=== PATIENT | male | born 1945 | race Caucasian/White ===

== ENCOUNTER 2024-02-20 10:08 | Outpatient (REF) | payer MEDICAID, MEDICARE, SELFPAY ==
[2024-02-20 10:48] LABS: Basophils Absolute Auto 0.1 10^3/uL (0.0-0.1); Basophils Percent Auto 0.7 % (0.2-2.0); Eosinophils Absolute Auto 0.5 10^3/uL (0.0-0.7); Eosinophils Percent Auto 4.5 % (0.9-7.0); Hematocrit 39.3 % (42.0-54.0); Hemoglobin 11.7 g/dL (14.0-18.0); Immature Granulocytes Abs Auto 0.17 10^3/uL (0.00-0.03); Immature Granulocytes Pct Auto 1.6 % (0.0-0.5); Lymphocytes Absolute Auto 1.2 10^3/uL (1.2-3.8); Lymphocytes Percent Auto 11.6 % (20.5-60.0); Mean Corpuscular HGB Conc 29.8 g/dL (29.9-35.2); Mean Corpuscular Hemoglobin 29.4 pg (25.9-34.0); Mean Corpuscular Volume 98.7 fL (80.0-94.0); Mean Platelet Volume 10.7 fL (9.5-13.5); Monocytes Absolute Auto 0.8 10^3/uL (0.3-0.8); Monocytes Percent Auto 7.8 % (1.7-12.0); Neutrophils Absolute Auto 7.6 10^3/uL (1.4-6.5); Neutrophils Percent Auto 73.8 % (43.0-75.0); Platelet Count 242 10^3/uL (150-450); Red Blood Count 3.98 10^6/uL (4.70-6.10); Red Cell Distribution Width 16.9 % (11.0-15.0); White Blood Count 10.4 10^3/uL (4.0-11.0)
[2024-02-20 11:04] LABS: Anion Gap 13.7; BUN Creatinine Ratio 28.1; Calcium 9.2 mg/dL (8.5-10.1); Carbon Dioxide 26.3 mmol/L (21.0-32.0); Chloride 107 mmol/L (98-107); Estimated GFR (African America >60 (>=60); Estimated GFR (Non-African Ame >60 (>=60); Glucose 87 mg/dL (74-106); Magnesium 1.9 mg/dL (1.8-2.4); Sodium 143 mmol/L (136-145)
== END 2024-02-20 10:09 | disposition home or self-care (01) ==
LOC: LAB 10:08
PROVIDERS: PCP Family Medicine; Visit Provider Nurse Practitioner Adult Health
DX: E61.2 Magnesium deficiency (principal); D64.9 Anemia, unspecified; J44.9 Chronic obstructive pulmonary disease, unspecified
CPT/HCPCS: 36415; 80048; 83735; 85025

== ENCOUNTER 2024-06-26 15:30 | Outpatient (REF) | payer MEDICARE, MEDICAID, SELFPAY ==
[2024-06-26 15:39] LABS: Basophils Absolute Auto 0.1 10^3/uL (0.0-0.1); Basophils Percent Auto 0.5 % (0.2-2.0); Eosinophils Absolute Auto 0.4 10^3/uL (0.0-0.7); Eosinophils Percent Auto 3.2 % (0.9-7.0); Hematocrit 42.8 % (42.0-54.0); Immature Granulocytes Abs Auto 0.17 10^3/uL (0.00-0.03); Immature Granulocytes Pct Auto 1.3 % (0.0-0.5); Lymphocytes Absolute Auto 1.1 10^3/uL (1.2-3.8); Lymphocytes Percent Auto 8.7 % (20.5-60.0); Mean Corpuscular HGB Conc 30.4 g/dL (29.9-35.2); Mean Corpuscular Hemoglobin 29.4 pg (25.9-34.0); Mean Corpuscular Volume 96.8 fL (80.0-94.0); Mean Platelet Volume 10.5 fL (9.5-13.5); Monocytes Percent Auto 7.3 % (1.7-12.0); Neutrophils Absolute Auto 10.3 10^3/uL (1.4-6.5); Platelet Count 306 10^3/uL (150-450); Red Blood Count 4.42 10^6/uL (4.70-6.10); White Blood Count 13.1 10^3/uL (4.0-11.0)
--- OUTSIDE RECORDS SUMMARY | 2024-06-26 15:50 | XMS_ITS | CCD ---
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 Name Role Phone YOLANDA BARRETO Admitting Unavailable WONDERLY, YOLANDA Mendoza Consulting Unavailable YOLANDA BARRETO Attending Unavailable YOLANDA BARRETO Attending Unavailable MARY LOU, YOLANDA Mendoza Admitting Unavailable YOLANDA BARRETO Consulting Unavailable Sven DO Lobo S Primary Care Provider YOBANY WREN Admitting Unavailable YOBANY WREN Attending Unavailable DARRYN SAWYER Referring Unavailable [facility], [facility] Primary Care Unavailable RAMADAN, ABED Referring Unavailable SVEN, [facility] Primary Care Unavailable KARLOS, CHIKI Referring Unavailable SVEN, [facility] Primary Care Unavailable KARLOS, CHIKI Referring Unavailable SVEN, [facility] Primary Care Unavailable KATHERINE MOHR Attending Unavailable SVEN, LOBO S Referring Unavailable SVEN, [facility] Primary Care Unavailable SVEN, [facility] Primary Care Unavailable KARLOS, CHIKI Referring Unavailable SVEN, LOBO S Primary Care Unavailable SVEN, [facility] Primary Care Unavailable DIGNADARRYN H Attending Unavailable DIGNADARRYN H Attending Unavailable DIGNA, DARRYN H Referring Unavailable SVEN, [facility] Primary Care Unavailable DIGNA, DARRYN H Attending Unavailable DIGNA, DARRYN H Referring Unavailable SVEN, LOBO S Primary Care Unavailable KARLOS, CHIKI Referring Unavailable SVEN, LOBO S Primary Care Unavailable KARLOS, CHIKI Referring Unavailable SVEN, DALLAS S Primary Care Unavailable KARLOS, CHIKI Referring Unavailable SVEN, DALLAS S Primary Care Unavailable KARLOS, CHIKI Referring Unavailable SVEN, DALLAS S Primary Care Unavailable ANTONIO FOX Referring Unavailable SVEN, [facility] Primary Care Unavailable SVEN, LOBO S Referring Unavailable SVEN, DALLAS S Primary Care Unavailable Medications Current Medications Medication Drug Class(es) Dates Sig (Normalized) Sig (Original) Albuterol (1 source) beta2-Adrenergic Agonist take 2 puff(s) by inhalation every four hours as needed albuterol sulfate (PROAIR HFA INHL) Inhale 2 puffs every 4 (four) hours as needed. 0 Active apixaban 5 mg oral tablet (1 source) Factor Xa Inhibitor Start: 10-31-2020 take 1 tablet by mouth twice daily apixaban (ELIQUIS) 5 mg tablet Take 1 tablet (5 mg total) by mouth 2 (two) times a day. 0 10/31/2020 Active ascorbic acid 500 mg oral tablet (1 source) Vitamin C take 1 tablet by mouth in the morning ascorbic acid (VITAMIN C) 500 mg tablet Take 1 tablet (500 mg total) by mouth in the morning. 0 Active budesonide 0.25 mg/ml inhalation suspension (1 source) Corticosteroid Start: 08-07-2022 budesonide (PULMICORT) 0.5 mg/2 mL nebulizer solution Indications: Pneumonia of right lower lobe due to infectious organism Inhale 2 mL (0.5 mg total) by nebulization every 12 (twelve) hours. 0 08/07/2022 Active 60 actuat budesonide 0.16 mg/actuat / formoterol fumarate 0.0045 mg/actuat metered dose inhaler (1 source) Corticosteroid, beta2-Adrenergic Agonist Start: 06-30-2021 take 1 puff(s) by inhalation in the morning SYMBICORT 160-4.5 mcg/actuation inhaler Inhale 1 puff in the morning and 1 puff before bedtime. 0 06/30/2021 Active bumetanide 1 mg oral tablet (1 source) Loop Diuretic Start: 11-09-2022 take 1 tablet by mouth once daily bumetanide (BUMEX) 1 mg tablet Take 1 tablet (1 mg total) by mouth daily. 60 tablet 11 11/09/2022 Active calcium carbonate 1500 mg / cholecalciferol 0.01 mg oral tablet (1 source) Vitamin D take 1 tablet by mouth once in the morning calcium carbonate-vitamin D3 (CALCIUM 600 + D,3,) 600 mg(1,500mg) -400 units per tablet Take 1 tablet by mouth in the morning. 0 Active ciprofloxacin 500 mg oral tablet (1 source) Quinolone Antimicrobial Start: 09-12-2023 take 1 tablet by mouth in the morning, then take 1 tablet by mouth at bedtime ciprofloxacin HCl (CIPRO) 500 mg tablet Take 1 tablet (500 mg total) by mouth in the morning and 1 tablet (500 mg total) before bedtime. 0 09/12/2023 Active 24 hr desvenlafaxine succinate 25 mg extended release oral tablet (1 source) Serotonin and Norepinephrine Reuptake Inhibitor take 1 tablet by mouth every twenty-four hours in the morning desvenlafaxine (PRISTIQ) 25 mg 24 hr tablet Take 1 tablet (25 mg total) by mouth in the morning. 0 Active docusate sodium 100 mg oral capsule (1 source) take 1 capsule by mouth once daily as needed docusate sodium (COLACE) 100 mg capsule Take 1 capsule (100 mg total) by mouth daily as needed. 0 Active docusate sodium 50 mg / sennosides, senior care 8.6 mg oral tablet (1 source) Start: 02-28-2021 take 2 tablets by mouth twice daily sennosides-docusat e sodium (SENOKOT-S) 8.6-50 mg Take 2 tablets by mouth 2 (two) times a day. 0 02/28/2021 Active ferrous sulfate 324 mg delayed release oral tablet (1 source) take 1 tablet by mouth at bedtime ferrous sulfate 324 mg (65 mg iron) tablet,delayed release (DR/EC) EC tablet Take 1 tablet (324 mg total) by mouth in the morning and at bedtime. 0 Active finasteride 5 mg oral tablet (1 source) 5-alpha Reductase Inhibitor take 1 tablet by mouth in the morning finasteride (PROSCAR) 5 mg tablet Take 1 tablet (5 mg total) by mouth in the morning. Takes in am. 0 Active hyoscyamine sulfate 0.125 mg disintegrating oral tablet (1 source) Start: 02-28-2021 hyoscyamine sulfate (LEVSIN) 0.125 mg tablet,disintegrat ing Place 1 tablet (125 mcg total) under the tongue every 4 (four) hours as needed (bladder spasms). 180 each 0 02/28/2021 Active lactulose 667 mg/ml oral solution (1 source) Osmotic Laxative Start: 03-15-2022 lactulose (CHRONULAC) 20 gram/30 mL solution Take 15 mL (10 g total) by mouth in the morning and 15 mL (10 g total) at noon and 15 mL (10 g total) before bedtime. 0 03/15/2022 Active lanolin-mineral oil (EUCERIN ORIGINAL) lotion (1 source) Start: 09-16-2020 lanolin-mineral oil (EUCERIN ORIGINAL) lotion Apply 1 application topically 2 (two) times a day. Apply to BLE; avoid in b/w toes. 0 09/16/2020 Active levalbuterol 0.417 mg/ml inhalation solution (1 source) beta2-Adrenergic Agonist Start: 12-19-2020 take 3 mL by inhalation every six hours as needed for wheezing levalbuterol (XOPENEX) 1.25 mg/3 mL nebulizer solution Indications: COVID-19 Inhale 3 mL (1.25 mg total) by nebulization every 6 (six) hours as needed for wheezing. 72 mL 0 12/19/2020 Active midodrine hydrochloride 5 mg oral tablet (1 source) alpha-Adrenergic Agonist Start: 09-26-2023 take 1 tablet by mouth three times daily midodrine (PROAMATINE) 5 mg tablet Take 1 tablet (5 mg total) by mouth 3 (three) times a day. 0 09/26/2023 Active ondansetron 4 mg oral tablet (1 source) Serotonin-3 Receptor Antagonist Start: 05-26-2023 take 1 tablet by mouth every eight hours as needed for nausea and vomiting ondansetron (ZOFRAN) 4 mg tablet Take 1 tablet (4 mg total) by mouth every 8 (eight) hours as needed for nausea or vomiting. 0 05/26/2023 Active pantoprazole 40 mg delayed release oral tablet (1 source) Proton Pump Inhibitor Start: 02-28-2021 take 1 tablet by mouth twice daily at mealtime pantoprazole (PROTONIX) 40 mg EC tablet Take 1 tablet (40 mg total) by mouth 2 (two) times a day with meals. 0 02/28/2021 Active polyvinyl alcohol 0.014 ml/ml ophthalmic solution (1 source) polyvinyl alcoho l (LIQUITEARS) 1.4 % ophthalmic solution Administer 1 drop to both eyes as needed for dry eyes. 0 Active microencapsulated potassium chloride 20 meq extended release oral tablet (1 source) take 1 tablet by mouth in the morning potassium chloride (KLOR-CON M 20) 20 MEQ CR tablet Take 1 tablet (20 mEq total) by mouth in the morning. 0 Active rOPINIRole 0.25 mg oral tablet (1 source) Nonergot Dopamine Agonist take 1 tablet by mouth three times daily rOPINIRole (REQUIP) 0.25 mg tablet Take 1 tablet (0.25 mg total) by mouth 3 (three) times a day. 0 Active tamsulosin hydrochloride 0.4 mg oral capsule (1 source) alpha-Adrenergic Gricelda take 1 capsule by mouth once daily tamsulosin (FLOMAX) 0.4 mg capsule Take 1 capsule (0.4 mg total) by mouth nightly. 0 Active zinc gluconate 50 mg oral tablet (1 source) take 1 tablet by mouth in the morning zinc gluconate 50 mg tablet Take 1 tablet (50 mg total) by mouth in the morning. 0 Active Problems Active Problems Problem Classification Problem Date Documented Da te Episodic/Chronic Acute and unspecified renal failure (1 source) Acute kidney failure, unspecified; Translations: [Acute kidney failure, unspecified] Onset: 4 Episodic Aortic; peripheral; and visceral artery aneurysms (2 sources) Aneurysm of ascending aorta; Translations: [Aneurysm of ascending aorta without rupture ([facility]-H[facility])] Onset: 1 10-12-2023 Chronic Cardiac dysrhythmias (7 sources) Paroxysmal atrial fibrillation; Translations: [Paroxysmal atrial fibrillation] Onset: 1 Resolved: 3 10-12-2023 Chronic Cardiac dysrhythmias (3 sources) Bradycardia; Translations: [Bradycardia, unspecified] Onset: 2 Resolved: 3 10-12-2023 Episodic Chronic kidney disease (1 source) Chronic kidney disease, unspecified; Translations: [Chronic kidney disease, unspecified] Onset: 4 Chronic Chronic obstructive pulmonary disease and bronchiectasis (2 sources) Acute exacerbation of chronic obstructive airways disease; Translations: [Chronic obstructive pulmonary disease with (acute) exacerbation] Onset: 2 10-14-2022 Chronic Congestive heart failure; nonhypertensive (3 sources) Chronic systolic heart failure; Translations: [Chronic systolic (congestive) heart failure] Onset: 1 10-12-2023 Chronic Coronary atherosclerosis and other heart disease (1 source) History of non-ST segment elevation myocardial infarction; Translations: [Old myocardial infarction] Onset: 1 10-31-2020 Chronic Deficiency and other anemia (1 source) Anemia, unspecified; Translations: [Anemia, unspecified] Onset: 4 Episodic Diseases of white blood cells (1 source) Elevated white blood cell count, unspecified; Translations: [Elevated white blood cell count, unspecified] Onset: 4 Chronic Gastrointestinal hemorrhage (1 source) Gastrointestinal hemorrhage; Translations: [Chronic or unspecified peptic ulcer, site unspecified, with hemorrhage] Onset: 1 02-14-2021 Chronic Genitourinary symptoms and ill-defined conditions (1 source) Functional urinary incontinence; Translations: [Functional urinary incontinence] Onset: 4 Chronic Genitourinary symptoms and ill-defined conditions (3 sources) Bryan hematuria; Translations: [Gross hematuria] Onset: 9 01-27-2021 Episodic Immunizations and screening for infectious disease (4 sources) Contact with and (suspected) exposure to other viral communicable diseases; Translations: [CONTCT EXPS OTH VIRL COMMUNICABL DZ] Onset: 0 Episodic Nutritional deficiencies (1 source) Magnesium deficiency; Translations: [Magnesium deficiency] Onset: 4 Episodic Other nervous system disorders (1 source) Unresponsive ; Translations: [Other symptoms and signs involving cognitive functions and awareness] Onset: 3 08-12-2023 Episodic Other nutritional; endocrine; and metabolic disorders (1 source) Body mass index 30+ - obesity; Translations: [Obesity, unspecified] Onset: 1 07-02-2021 Chronic Other nutritional; endocrine; and metabolic disorders (1 source) Hypomagnesemia; Translations: [Hypomagnesemia] Onset: 2 08-01-2022 Chronic Other screening for suspected conditions (not mental disorders or infectious disease) (1 source) Other specified abnormal findings of blood chemistry; Translations: [Other specified abnormal findings of blood chemistry] Onset: 4 Episodic Yajaira-; endo-; and myocarditis; cardiomyopathy (except that caused by tuberculosis or sexually transmitted disease) (3 sources) Cardiomyopathy; Translations: [Cardiomyopathy, unspecified] Onset: 2 10-12-2023 Chronic Residual codes; unclassified (1 source) Altered mental status, unspecified; Translations: [Altered mental status, unspecified] Onset: 4 Episodic Residual codes; unclassified (1 source) Clouded consciousness Onset: 4 Episodic Respiratory failure; insufficiency; arrest (adult) (1 source) [id number] respiratory failure; Translations: [Acute and chronic respiratory failure with hypoxia] Onset: 2 10-14-2022 Chronic Schizophrenia and other psychotic disorders (1 source) Schizophrenia; Translations: [Schizophrenia, unspecified] Onset: 2 08-01-2022 Chronic Unclassified (1 source) Penile Discharge Onset: 4 Unclassified (1 source) EMS Onset: 4 Unclassified (1 source) Aneurysm of the ascending aorta, without rupture; Translations: [Aneurysm of the ascending aorta, without rupture] Onset: 2 Urinary tract infections (6 sources) Acute cystitis; Translations: [Acute cystitis with hematuria] Onset: 0 08-01-2022 Episodic Past or Other Problems Problem Classification Problem Date Documented Da te Episodic/Chronic Complications of surgical procedures or medical care (1 source) Non-healing surgical wound; Translations: [Other complications of procedures, not elsewhere classified, initial encounter] Onset: 03-27-2021 03-27-2021 Episodic Fluid and electrolyte disorders (3 sources) Hypernatremia; Translations: [Hyperosmolality and hypernatremia] Onset: 09-24-2020 09-24-2020 Episodic Intestinal obstruction without hernia (1 source) Obstruction of colon; Translations: [Unspecified intestinal obstruction, unspecified as to partial versus complete obstruction] Onset: 02-08-2021 02-14-2021 Episodic Malaise and fatigue (1 source) Asthenia; Translations: [Weakness] Onset: 08-01-2022 08-02-2022 Episodic Mood disorders (1 source) Mood disorders Onset: 08-12-2023 08-12-2023 Other gastrointestinal disorders (1 source) Oropharyngeal dysphagia; Translations: [Dysphagia, oropharyngeal phase] Onset: 02-14-2021 1 Episodic Other gastrointestinal disorders (1 source) Dysphagia; Translations: [Dysphagia, unspecified] Onset: 08-02-2022 08-02-2022 Episodic Other injuries and conditions due to external causes (1 source) Excoriation of skin; Translations: [Other injury of unspecified body region, initial encounter] Onset: 10-12-2022 10-12-2022 Episodic Other liver diseases (1 source) Elevated liver enzymes level; Translations: [Abnormal levels of other serum enzymes] Onset: 08-03-2022 08-03-2022 Episodic Pneumonia (except that caused by tuberculosis or sexually transmitted disease) (1 source) Pneumonia; Translations: [Pneumonia, unspecified organism] Onset: 03-05-2022 08-13-2023 Episodic Pulmonary heart disease (1 source) Acute pulmonary embolism; Translations: [Other pulmonary embolism without acute cor pulmonale] Onset: 10-31-2020 10-31-2020 Episodic Residual codes; unclassified (1 source) Insomnia; Translations: [Insomnia, unspecified] Onset: 08-01-2022 08-01-2022 Episodic Respiratory failure; insufficiency; arrest (adult) (1 source) Acute respiratory failure; Translations: [Acute respiratory failure with hypoxia] Onset: 02-14-2021 02-14-2021 Episodic Skin and subcutaneous tissue infections (1 source) Cellulitis; Translations: [Cellulitis, unspecified] Onset: 08-16-2020 08-16-2020 Episodic Viral infection (2 sources) Esophageal herpes simplex infection; Translations: [Other herpesviral infection] Onset: 06-26-2016 01-03-2023 Episodic Results Test Name Value Interpretation Reference Range Facility URINALYSISon 01-27-2024 Bilirubin Ql (U) Negative Normal NEG [facility] BLOOD/HGB Small Abnormal NEG [facility] Color (U) YELLOW Normal YELLOW [facility] Glucose Ql (U) Negative Normal NEG [facility] Ketones Ql (U) Negative Normal NEG [facility] Leukocyte esterase Test strip Ql (U) Large Abnormal NEG [facility] Nitrite Ql (U) Negative Normal NEG [facility] pH (U) 7.5 [pH] Normal 5.0-8.5 [facility] Protein Ql (U) 50 mg/dL Abnormal NEG [facility] R.B.CELLS 13 /hpf High 0-5 [facility] Specific gravity (U) [Rel density] 1.010 Normal 1.003-1.035 [facility] TURBIDITY CLOUDY Abnormal CLEAR [facility] Urobilinogen (U) [Mass/Vol] mg/dL Normal <1.1 [facility] W.B.CELLS >720 High 0-5 [facility] URINE CULTUREon 01-27-2024 Bacteria identified Cx Nom (U) CULTURE RESULTS >100,000 ORGANISMS/mL PROTEUS MIRABILIS 10,000 to 50,000 ORGANISMS/mL CITROBACTER FREUNDII [ S = SUSCEPTIBLE R = RESISTANT I = INTERMEDIATE S-DO = Susceptible-dose dependent NS = Non-suscceptible NO = No Interpretation ] Organism: PROTEUS MIRABILIS Antibiotic Interpretation BRAYDEN Status AMPICILLIN S <=2 F AMP/SULBACTAM S <=2/1 F CEFAZOLIN S <=4 F CEFTRIAXONE S <=1 F CIPROFLOXACIN S 1 F GENTAMICIN S <=1 F LEVOFLOXACIN S 1 F NITROFURANTOIN R 128 F PIPERACIL/TAZOBACTAM S <=4 F TOBRAMYCIN S <=1 F TRIMETH/SULFAMETHOXAZOL E S <=1/19 F [ S = SUSCEPTIBLE R = RESISTANT I = INTERMEDIATE S-DO = Susceptible-dose dependent NS = Non-suscceptible NO = No Interpretation ] Organism: CITROBACTER FREUNDII Antibiotic Interpretation BRAYDEN Status CEFAZOLIN R >=64 F CEFTRIAXONE S <=1 F CIPROFLOXACIN S 0.5 F GENTAMICIN S <=1 F LEVOFLOXACIN S 1 F NITROFURANTOIN I 64 F PIPERACIL/TAZOBACTAM S 8 F TOBRAMYCIN S <=1 F TRIMETH/SULFAMETHOXAZOL E S <=1/19 F Susceptible [facility] Comment on above: Performed By: #### 6 30-4 #### [facility] ([id number]) [address], [address] [place] [address] HGB A1C (GLYCO-HGB)on 2023 Glucose [Mass/Vol] 114 mg/dL Normal [facility] HbA1c (Bld) [Mass fraction] 5.6 % Normal 4.4-5.6 [facility] Comment on above: Result Comment: NOTE ADA Guidelines Result HgbA1c Normal : less than 5.7 % Prediabetes : 5.7 % to 6.4 % Diabetes : > 6.4 % Use with caution in patients with abnormal hemoglobin variants as the half-life of red blood cells and in vivo glycation rates are affected. BASIC METABOLIC PANLon 12-02 Anion gap [Moles/Vol] 8 mmol/L Normal 5-15 [facility] Comment on above: Performed By: #### N UM #### [facility] ([id number]) [address] [place] [address] 27478 Calcium [Mass/Vol] 8.8 mg/dL Normal 8.5-10.5 [facility] Comment on above: Performed By: #### N UM #### [facility] ([id number]) [address] [place] [address] 78524 Chloride [Moles/Vol] 104 mmol/L Normal 98-109 [facility] Comment on above: Performed By: #### N UM #### [facility] ([id number]) [address] [place] [address] 19603 CO2 [Moles/Vol] 27 mmol/L Normal 22-32 [facility] Comment on above: Performed By: #### N UM #### [facility] ([id number]) [address] [place] [address] 34238 Creatinine [Mass/Vol] 1.06 mg/dL Normal 0.70-1.20 [facility] Comment on above: Result Comment: METH OD TRACEABLE TO IDMS STANDARD Performed By: #### N UM #### [facility] ([id number]) [address] [place] [address] 62851 GFR/1.73 sq M.predicted among non-blacks MDRD (S/P/Bld) [Vol rate/Area] 73 mL/min/{1.73_m2} Normal >59 [facility] Comment on above: Result Comment: Reported eGFR is based on the CKD-EPI 2020 equation that does not use a race coefficient. Performed By: #### N UM #### [facility] ([id number]) [address] [place] [address] 33872 Glucose [Mass/Vol] 97 mg/dL Normal 65-99 [facility] Comment on above: Performed By: #### N UM #### [facility] ([id number]) [address] [place] [address] 17276 Potassium [Moles/Vol] 4.2 mmol/L Normal 3.5-5.0 [facility] Comment on above: Performed By: #### N UM #### [facility] ([id number]) [address] [place] [address] 50979 Sodium [Moles/Vol] 139 mmol/L Normal 134-146 [facility] Comment on above: Performed By: #### N UM #### [facility] ([id number]) [address] [place] [address] 59792 Urea nitrogen [Mass/Vol] 23 mg/dL Normal 5-27 [facility] Comment on above: Performed By: #### N UM #### [facility] ([id number]) [address] [place] [address] 82973 CBC AND AUTO DIFFon 11-28-19 24 ABSOLUTE BASOPHIL 0.1 X10E9/L Normal 0.0-0.2 [facility] Comment on above: Performed By: #### N UM #### [facility] ([id number]) [address] [place] [address] 94012 ABSOLUTE NEUTROPHIL 7.2 X10E9/L High 1.5-6.6 [facility] Comment on above: Performed By: #### N UM #### [facility] ([id number]) [address] [place] [address] 33969 Basophils/100 WBC (Bld) 1.0 % Normal [facility] Comment on above: Performed By: #### N UM #### [facility] ([id number]) [address] [place] [address] 57229 Eosinophils (Bld) [#/Vol] 0.3 10*3/uL Normal 0.0-0.4 [facility] Comment on above: Performed By: #### N UM #### [facility] ([id number]) [address] [place] [address] 41601 Eosinophils/100 WBC (Bld) 2.9 % Normal [facility] Comment on above: Performed By: #### N UM #### [facility] ([id number]) [address] [place] [address] 36462 Erythrocyte distribution width (RBC) [Ratio] 16.8 % High 11.5-15.0 [facility] Comment on above: Performed By: #### N UM #### [facility] ([id number]) [address] [place] [address] 42971 Hematocrit (Bld) [Volume fraction] 34.8 % Low 39-49 [facility] Comment on above: Performed By: #### N UM #### [facility] ([id number]) [address] [place] [address] 04864 Hemoglobin (Bld) [Mass/Vol] 11.2 g/dL Low 13.0-17.0 [facility] Comment on above: Performed By: #### N UM #### [facility] ([id number]) [address] [place] [address] 96857 Lymphocytes (Bld) [#/Vol] 1.1 10*3/uL Normal 1.0-3.5 [facility] Comment on above: Performed By: #### N UM #### [facility] ([id number]) [address] [place] [address] 73178 Lymphocytes/100 WBC (Bld) 11.3 % Normal [facility] Comment on above: Performed By: #### N UM #### [facility] ([id number]) [address] [place] [address] 45167 MCH (RBC) [Entitic mass] 29.7 pg Normal 27-34 [facility] Comment on above: Performed By: #### N UM #### [facility] ([id number]) [address] [place] [address] 36367 MCHC (RBC) [Mass/Vol] 32.1 g/dL Normal 32-36 [facility] Comment on above: Performed By: #### N UM #### [facility] ([id number]) [address] [place] [address] 81258 MCV (RBC) [Entitic vol] 92 fL Normal 80-100 [facility] Comment on above: Performed By: #### N UM #### [facility] ([id number]) [address] [place] [address] 85817 Monocytes (Bld) [#/Vol] 0.8 10*3/uL Normal 0-0.9 [facility] Comment on above: Performed By: #### N UM #### [facility] ([id number]) [address] [place] [address] 93294 Monocytes/100 WBC (Bld) 8.7 % Normal [facility] Comment on above: Performed By: #### N UM #### [facility] ([id number]) [address] [place] [address] 32533 Neutrophils/100 WBC (Bld) 76.1 % Normal [facility] Comment on above: Performed By: #### N UM #### [facility] ([id number]) [address] [place] [address] 71634 Platelet mean volume (Bld) [Entitic vol] 8.9 fL Normal 7-12 [facility] Comment on above: Performed By: #### N UM #### [facility] ([id number]) [address] [place] [address] 90605 Platelets (Bld) [#/Vol] 288 10*3/uL Normal 150-450 [facility] Comment on above: Performed By: #### N UM #### [facility] ([id number]) [address] [place] [address] 14693 RBC COUNT 3.76 X10E12/L Low 4.10-5.70 [facility] Comment on above: Performed By: #### N UM #### [facility] ([id number]) [address] [place] [address] WBC (Bld) [#/Vol] 9.5 10*3/uL Normal 4.0-11.0 [facility] Comment on above: Performed By: #### N UM #### [facility] ([id number]) [address] [place] [address] BLOOD CULTUREon 11-23-2023 Bacteria identified Aer cx Nom (Bld) CULTURE RESULTS NO GROWTH 5 DAYS Normal [facility] Bacteria identified Aer cx Nom (Bld) CULTURE RESULTS NO GROWTH 5 DAYS Normal [facility] CBC AND AUTO DIFFon 11-23-19 24 ABSOLUTE BASOPHIL 0.1 X10E9/L Normal 0.0-0.2 [facility] Comment on above: Performed By: #### C BCA, CMP, 88279-6 #### [facility] ([id number]) [address] [place] [address] ABSOLUTE NEUTROPHIL 8.8 X10E9/L High 1.5-6.6 [facility] Comment on above: Performed By: #### C LUIS M [facility], #### [facility] ([id number]) [address] [place] [address] Basophils/100 WBC (Bld) 0.6 % Normal [facility] Comment on above: Performed By: #### Lita ASENCIO [facility], #### [facility] ([id number]) [address] [place] [address] Eosinophils (Bld) [#/Vol] 0.3 10*3/uL Normal 0.0-0.4 [facility] Comment on above: Performed By: #### Lita ASENCIO [facility], #### [facility] ([id number]) [address] [place] [address] Eosinophils/100 WBC (Bld) 2.8 % Normal [facility] Comment on above: Performed By: #### Lita ASENCIO [facility], #### [facility] ([id number]) [address] [place] [address] Erythrocyte distribution width (RBC) [Ratio] 17.6 % High 11.5-15.0 [facility] Comment on above: Performed By: #### Lita ASENCIO [facility], #### [facility] ([id number]) [address] [place] [address] Hematocrit (Bld) [Volume fraction] 38.1 % Low 39-49 [facility] Comment on above: Performed By: #### C LUIS M [facility], #### [facility] ([id number]) [address] [place] [address] Hemoglobin (Bld) [Mass/Vol] 12.2 g/dL Low 13.0-17.0 [facility] Comment on above: Performed By: #### Lita ASENCIO [facility], #### [facility] ([id number]) [address] [place] [address] Lymphocytes (Bld) [#/Vol] 1.0 10*3/uL Normal 1.0-3.5 [facility] Comment on above: Performed By: #### C LUIS M [facility], #### [facility] ([id number]) [address] [place] [address] Lymphocytes/100 WBC (Bld) 8.9 % Normal [facility] Comment on above: Performed By: #### C LUIS M [facility], #### [facility] ([id number]) [address] [place] [address] MCH (RBC) [Entitic mass] 29.4 pg Normal 27-34 [facility] Comment on above: Performed By: #### C LUIS M [facility], #### [facility] ([id number]) [address] [place] [address] MCHC (RBC) [Mass/Vol] 32.1 g/dL Normal 32-36 [facility] Comment on above: Performed By: #### C LUIS M [facility], #### [facility] ([id number]) [address] [place] [address] MCV (RBC) [Entitic vol] 92 fL Normal 80-100 [facility] Comment on above: Performed By: #### C LUIS M [facility], #### [facility] ([id number]) [address] [place] [address] Monocytes (Bld) [#/Vol] 1.4 10*3/uL High 0-0.9 [facility] Comment on above: Performed By: #### C LUIS M [facility], #### [facility] ([id number]) [address] [place] [address] Monocytes/100 WBC (Bld) 12.0 % Normal [facility] Comment on above: Performed By: #### C LUIS M [facility], #### [facility] ([id number]) [address] [place] [address] Neutrophils/100 WBC (Bld) 75.7 % Normal [facility] Comment on above: Performed By: #### C LUIS M, CMP, #### [facility] ([id number]) [address] [place] [address] Platelet mean volume (Bld) [Entitic vol] 7.4 fL Normal 7-12 [facility] Comment on above: Performed By: #### C LUIS M, CMP, #### [facility] ([id number]) [address] [place] [address] Platelets (Bld) [#/Vol] 363 10*3/uL Normal 150-450 [facility] Comment on above: Performed By: #### C LUIS M, CMP, #### [facility] ([id number]) [address] [place] [address] RBC COUNT 4.16 X10E12/L Normal 4.10-5.70 [facility] Comment on above: Performed By: #### C ALIYAH ASENCIO, #### [facility] ([id number]) [address] [place] [address] WBC (Bld) [#/Vol] 11.6 10*3/uL High 4.0-11.0 [facility] Comment on above: Performed By: #### C LUIS M [facility], #### [facility] ([id number]) [address] [place] [address] COMPREHENSIVE METABOLIC PANE Bravo 11-23-2023 Albumin [Mass/Vol] 2.5 g/dL Low 3.2-5.3 [facility] Comment on above: Performed By: #### C BCA, CMP, #### [facility] ([id number]) [address] [place] [address] ALP [Catalytic activity/Vol] 80 U/L Normal 39-130 [facility] Comment on above: Performed By: #### C BCA, CMP, #### [facility] ([id number]) [address] [place] [address] ALT [Catalytic activity/Vol] 12 U/L Normal 0-40 [facility] Comment on above: Performed By: #### C BCA CMP, #### [facility] ([id number]) [address] [place] [address] Anion gap [Moles/Vol] 7 mmol/L Normal 5-15 [facility] Comment on above: Performed By: #### C BCA CMP, #### [facility] ([id number]) [address] [place] [address] AST [Catalytic activity/Vol] 24 U/L Normal 0-41 [facility] Comment on above: Performed By: #### C BCA CMP, #### [facility] ([id number]) [address] [place] [address] Bilirubin [Mass/Vol] 0.5 mg/dL Normal 0.3-1.2 [facility] Comment on above: Performed By: #### C LUIS M [facility], #### [facility] ([id number]) [address] [place] [address] Calcium [Mass/Vol] 8.3 mg/dL Low 8.5-10.5 [facility] Comment on above: Performed By: #### C BCA CMP, #### [facility] ([id number]) [address] [place] [address] Chloride [Moles/Vol] 103 mmol/L Normal 98-109 [facility] Comment on above: Performed By: #### C BCA CMP, #### [facility] ([id number]) [address] [place] [address] CO2 [Moles/Vol] 26 mmol/L Normal 22-32 [facility] Comment on above: Performed By: #### C BCA CMP, #### [facility] ([id number]) [address] [place] [address] Creatinine [Mass/Vol] 1.24 mg/dL High 0.70-1.20 [facility] Comment on above: Result Comment: METH OD TRACEABLE TO IDMS STANDARD Performed By: #### C ALIYAH ASENCIO, #### [facility] ([id number]) [address] [place] [address] GFR/1.73 sq M.predicted among non-blacks MDRD (S/P/Bld) [Vol rate/Area] 60 mL/min/{1.73_m2} Normal >59 [facility] Comment on above: Result Comment: Reported eGFR is based on the CKD-EPI 2020 equation that does not use a race coefficient. Performed By: #### C ALIYAH ASENCIO, #### [facility] ([id number]) [address] [place] [address] Glucose [Mass/Vol] 98 mg/dL Normal 65-99 [facility] Comment on above: Performed By: #### C ALIYAH ASENCIO, #### [facility] ([id number]) [address] [place] [address] Potassium [Moles/Vol] 4.2 mmol/L Normal 3.5-5.0 [facility] Comment on above: Performed By: #### C LUIS M [facility], #### [facility] ([id number]) [address] [place] [address] Protein [Mass/Vol] 6.8 g/dL Normal 6.0-8.0 [facility] Comment on above: Performed By: #### C LUIS M [facility], #### [facility] ([id number]) [address] [place] [address] Sodium [Moles/Vol] 136 mmol/L Normal 134-146 [facility] Comment on above: Performed By: #### C LUIS M [facility], #### [facility] ([id number]) [address] [place] [address] Urea nitrogen [Mass/Vol] 21 mg/dL Normal 5-27 [facility] Comment on above: Performed By: #### C ALIYAH ASENCIO, #### [facility] ([id number]) [address] [place] [address] MAGNESIUMon 11-23-2023 Magnesium [Mass/Vol] 2.0 mg/dL Normal 1.8-2.6 [facility] Comment on above: Performed By: #### C BCA, CMP, 69417-1 #### [facility] ([id number]) [address] [place] [address] CT ABDOMEN AND PELVIS WO CON Ton 11-22-2023 CT ABDOMEN AND PELVIS WO CONT CT ABDOMEN AND PELVIS WO CONT CLINICAL INFORMATION: Abdominal/flank pain, stone suspected. TECHNIQUE: CT Abdomen and Pelvis without intravenous contrast. All CT scans at this facility use dose modulation, iterative reconstruction, and/or weight based dosing when appropriate to reduce radiation dose to as low as reasonably achievable. COMPARISON: 08/11/2023. FINDINGS: Limited noncontrast CT abdomen and pelvis. Within this limitation: Multifocal pulmonary parenchymal opacities bibasilar regions. Otherwise hypertrophy interatrial septum. Significant diffuse hepatic steatosis. Morphologic features of chronic hepatocellular disease. Normal spleen, adrenal glands, pancreas. Mild renal parenchymal volume loss without collecting system dilatation. Substantial gallbladder wall thickening, intramural fatty deposition within the bladder. 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 Perivesicular fat stranding. 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 Diastases recti. No aggressive osseous lesions. IMPRESSION: * Substantial urinary bladder wall thickening, intramural fatty deposition. Perivesicular fat stranding. Findings may relate to acute on chronic cystitis, correlate clinically. * Hepatic steatosis with morphologic features of chronic hepatocellular disease. * Left abdominal end colostomy with parastomal hernia containing nonobstructed small bowel Finalized by Ben Albarran MD on 11/22/2023 3:28 PM Normal [facility] AMMONIAon 11-21-2023 Ammonia (P) [Moles/Vol] 24 umol/L Normal 11-35 [facility] Comment on above: Performed By: #### 6 30-4 #### [facility] ([id number]) [address], [address] [place] [address] BASIC METABOLIC PANLon 11-21 Anion gap [Moles/Vol] 8 mmol/L Normal 5-15 [facility] Comment on above: Performed By: #### 6 30-4 #### [facility] ([id number]) [address], [address] [place] [address] Calcium [Mass/Vol] 8.4 mg/dL Low 8.5-10.5 [facility] Comment on above: Performed By: #### 6 30-4 #### [facility] ([id number]) [address], [address] [place] [address] Chloride [Moles/Vol] 105 mmol/L Normal 98-109 [facility] Comment on above: Performed By: #### 6 30-4 #### [facility] ([id number]) [address], [address] [place] [address] CO2 [Moles/Vol] 26 mmol/L Normal 22-32 [facility] Comment on above: Performed By: #### 6 30-4 #### [facility] ([id number]) [address], [address] [place] [address] Creatinine [Mass/Vol] 1.44 mg/dL High 0.70-1.20 [facility] Comment on above: Result Comment: METH OD TRACEABLE TO IDMS STANDARD Performed By: #### 6 30-4 #### [facility] ([id number]) [address], [address] [place] [address] GFR/1.73 sq M.predicted among non-blacks MDRD (S/P/Bld) [Vol rate/Area] 50 mL/min/{1.73_m2} Low >59 [facility] Comment on above: Result Comment: Reported eGFR is based on the CKD-EPI 2020 equation that does not use a race coefficient. Performed By: #### 6 30-4 #### [facility] ([id number]) [address], [address] [place] [address] Glucose [Mass/Vol] 142 mg/dL High 65-99 [facility] Comment on above: Performed By: #### 6 30-4 #### [facility] ([id number]) [address], [address] [place] [address] Potassium [Moles/Vol] 3.9 mmol/L Normal 3.5-5.0 [facility] Comment on above: Performed By: #### 6 30-4 #### [facility] ([id number]) [address], [address] [place] [address] Sodium [Moles/Vol] 139 mmol/L Normal 134-146 [facility] Comment on above: Performed By: #### 6 30-4 #### [facility] ([id number]) [address], [address] [place] [address] Urea nitrogen [Mass/Vol] 21 mg/dL Normal 5-27 [facility] Comment on above: Performed By: #### 6 30-4 #### [facility] ([id number]) [address], [address] [place] [address] BLOOD CULTUREon 11-21-2023 Bacteria identified Aer cx Nom (Bld) CULTURE RESULTS STAPHYLOCOCCUS EPIDERMIDIS POSSIBLE COLLECTION CONTAMINATION. STAPHYLOCOCCUS, COAGULASE NEGATIVE NOT S.LUGDUNENSIS POSSIBLE COLLECTION CONTAMINATION. Staphylococcus epidermidis detected by PCR. No resistance genes detected by PCR. SINGLE POSITIVE CULTURE IS OF UNCERTAIN CLINICAL SIGNIFICANCE. SUGGEST CONTINUED MONITORING OF REMAINING BLOOD CULTURES. CONTACT MICROBIOLOGY IF FURTHER INFORMATION IS REQUIRED. Normal [facility] Comment on above: Performed By: #### N UM #### [facility] ([id number]) [address] [place] [address] Bacteria identified Aer cx Nom (Bld) SPECIMEN NOTES SUBOPTIMAL VOLUME OF BLOOD COLLECTED, RESULTS MAY BE AFFECTED. CULTURE RESULTS NO GROWTH 5 DAYS Normal [facility] Comment on above: Performed By: #### N UM #### [facility] ([id number]) [address] [place] [address] CBC AND AUTO DIFFon 11-21-19 24 ABSOLUTE BASOPHIL 0.0 X10E9/L Normal 0.0-0.2 [facility] Comment on above: Performed By: #### C BCA, PINR, 78917-4, BMP, 81198-3, 28073-3, LIVR, 08237-6, 50481-4, THYR, 21863-0 #### [facility] ([id number]) [address] [place] [address] ABSOLUTE NEUTROPHIL 10.3 X10E9/L High 1.5-6.[address] [facility] Comment on above: Performed By: #### C BCA, PINR, 21615-4, BMP, 91326-5, 73038-4, LIVR, 19928-8, 92853-2, THYR, 99741-1 #### [facility] ([id number]) [address] [place] [address] Basophils/100 WBC (Bld) 0.3 % Normal [facility] Comment on above: Performed By: #### C BCA, PINR, 80057-6, BMP, 33491-6, 99027-5, LIVR, 82282-5, 61648-4, THYR, 63767-9 #### [facility] ([id number]) [address] [place] [address] Eosinophils (Bld) [#/Vol] 0.3 10*3/uL Normal 0.0-0.4 [facility] Comment on above: Performed By: #### C BCA, PINR, 35953-5, BMP, 20244-2, 37484-0, LIVR, 72253-5, 38475-8, THYR, 72072-2 #### [facility] ([id number]) [address] [place] [address] Eosinophils/100 WBC (Bld) 2.5 % Normal [facility] Comment on above: Performed By: #### C BCA, PINR, 29949-9, BMP, 84019-9, 84744-6, LIVR, 94466-6, 30851-2, THYR, 85742-1 #### [facility] ([id number]) [address] [place] [address] Erythrocyte distribution width (RBC) [Ratio] 17.6 % High 11.5-15.0 [facility] Comment on above: Performed By: #### C BCA, PINR, 67263-5, BMP, 47111-3, 12189-4, LIVR, 28219-3, 30133-2, THYR, 77025-7 #### [facility] ([id number]) [address] [place] [address] Hematocrit (Bld) [Volume fraction] 40.3 % Normal 39-49 [facility] Comment on above: Performed By: #### C BCA, PINR, 48182-9, BMP, 40609-1, 14895-6, LIVR, 92028-8, 03615-3, THYR, 29633-0 #### [facility] ([id number]) [address] [place] [address] Hemoglobin (Bld) [Mass/Vol] 13.1 g/dL Normal 13.0-17.0 [facility] Comment on above: Performed By: #### C BCA, PINR, 17993-3, BMP, 52548-6, 51582-2, LIVR, 19994-9, 77632-8, THYR, 97543-2 #### [facility] ([id number]) [address] [place] [address] Lymphocytes (Bld) [#/Vol] 1.0 10*3/uL Normal 1.0-3.5 [facility] Comment on above: Performed By: #### C BCA, PINR, 82899-0, BMP, 40797-9, 24335-2, LIVR, 49391-7, 90627-5, THYR, 99595-9 #### [facility] ([id number]) [address] [place] [address] Lymphocytes/100 WBC (Bld) 7.5 % Normal [facility] Comment on above: Performed By: #### C BCA, PINR, 67817-4, BMP, 91588-2, 16525-7, LIVR, 31247-1, 55501-4, THYR, 14096-7 #### [facility] ([id number]) [address] [place] [address] MCH (RBC) [Entitic mass] 29.7 pg Normal 27-34 [facility] Comment on above: Performed By: #### C BCA, PINR, 97797-8, BMP, 21261-8, 19619-8, LIVR, 58610-3, 36136-8, THYR, 06341-4 #### [facility] ([id number]) [address] [place] [address] MCHC (RBC) [Mass/Vol] 32.5 g/dL Normal 32-36 [facility] Comment on above: Performed By: #### C BCA, PINR, 13821-6, BMP, 64093-3, 06469-9, LIVR, 79792-6, 99025-2, THYR, 40708-0 #### [facility] ([id number]) [address] [place] [address] MCV (RBC) [Entitic vol] 92 fL Normal 80-100 [facility] Comment on above: Performed By: #### C BCA, PINR, 82565-4, BMP, 42260-4, 81091-9, LIVR, 47076-5, 40084-7, THYR, 34374-1 #### [facility] ([id number]) [address] [place] [address] Monocytes (Bld) [#/Vol] 1.3 10*3/uL High 0-0.9 [facility] Comment on above: Performed By: #### C BCA, PINR, 48809-5, BMP, 93079-3, 09401-2, LIVR, 57101-0, 01390-8, THYR, 65289-6 #### [facility] ([id number]) [address] [place] [address] Monocytes/100 WBC (Bld) 10.2 % Normal [facility] Comment on above: Performed By: #### C BCA, PINR, 36041-5, BMP, 01176-0, 35170-1, LIVR, 42729-7, 57831-6, THYR, 05615-8 #### [facility] ([id number]) [address] [place] [address] Neutrophils/100 WBC (Bld) 79.5 % Normal [facility] Comment on above: Performed By: #### C BCA, PINR, 19127-9, BMP, 52907-9, 58027-9, LIVR, 73879-9, 48376-2, THYR, 23527-3 #### [facility] ([id number]) [address] [place] [address] [place] [address] Platelet mean volume (Bld) [Entitic vol] 7.4 fL Normal 7-12 [facility] Comment on above: Performed By: #### C BCA, PINR, 62600-2, BMP, 30111-5, 37229-3, LIVR, 31487-8, 62686-0, THYR, 68752-3 #### [facility] ([id number]) [address] [place] [address] Platelets (Bld) [#/Vol] 419 10*3/uL Normal 150-450 [facility] Comment on above: Performed By: #### C BCA, PINR, 59243-6, BMP, 92909-7, 14312-7, LIVR, 14283-1, 83916-5, THYR, 18863-6 #### [facility] ([id number]) [address] [place] [address] RBC COUNT 4.40 X10E12/L Normal 4.10-5.70 [facility] Comment on above: Performed By: #### C BCA, PINR, 80987-2, BMP, 34979-0, 16546-9, LIVR, 47148-8, 06283-9, THYR, 43751-2 #### [facility] ([id number]) [address] [place] [address] WBC (Bld) [#/Vol] 12.8 10*3/uL High 4.0-11.0 [facility] Comment on above: Performed By: #### C BCA, PINR, 37669-9, BMP, 05093-5, 08188-7, LIVR, 18087-4, 89273-0, THYR, 55892-7 #### [facility] ([id number]) [address] [place] [address] LIVER PANELon 11-21-2023 Albumin [Mass/Vol] 2.8 g/dL Low 3.2-5.3 [facility] Comment on above: Performed By: #### 6 30-4 #### [facility] ([id number]) [address], [address] [place] [address] ALP [Catalytic activity/Vol] 99 U/L Normal 39-130 [facility] Comment on above: Performed By: #### 6 30-4 #### [facility] ([id number]) [address], [address] [place] [address] ALT [Catalytic activity/Vol] 13 U/L Normal 0-40 [facility] Comment on above: Performed By: #### 6 30-4 #### [facility] ([id number]) [address], [address] [place] [address] AST [Catalytic activity/Vol] 31 U/L Normal 0-41 [facility] Comment on above: Performed By: #### 6 30-4 #### [facility] ([id number]) [address], [address] [place] [address] Bilirubin [Mass/Vol] 0.3 mg/dL Normal 0.3-1.2 [facility] Comment on above: Performed By: #### 6 30-4 #### [facility] ([id number]) [address], [address] [place] [address] Bilirubin.direct [Mass/Vol] 0.1 mg/dL Normal 0.0-0.4 [facility] Comment on above: Performed By: #### 6 30-4 #### [facility] ([id number]) [address], [address] [place] [address] Protein [Mass/Vol] 7.4 g/dL Normal 6.0-8.0 [facility] Comment on above: Performed By: #### 6 30-4 #### [facility] ([id number]) [address], [address] [place] [address] Lactate (P joan) [Moles/Vol]o n 11-21-2023 Lactate [Moles/Vol] 1.6 mmol/L Normal 0.4-2.0 [facility] Comment on above: Performed By: #### N UM #### [facility] ([id number]) [address] [place] [address], [place] [address] LACTATE W/REFLEX 2.5 mmol/L High 0.4-2.0 [facility] Comment on above: Performed By: #### 6 30-4 #### [facility] ([id number]) [address], [address] [place] [address] MAGNESIUMon 11-21-2023 Magnesium [Mass/Vol] 2.1 mg/dL Normal 1.8-2.6 [facility] Comment on above: Performed By: #### 6 30-4 #### [facility] ([id number]) [address], [address] [place] [address] Natriuretic peptide B [Mass/ Vol]on 11-21-2023 Natriuretic peptide B (Bld) [Mass/Vol] 136 pg/mL High <100.0 [facility] Comment on above: Performed By: #### 6 30-4 #### [facility] ([id number]) [address] [facility], [address] [place] [address] PROTIME AND INRon 11-21-2023 INR Coag (PPP) [Relative time] 1.3 {INR} High 0.8-1.1 [facility] Comment on above: Performed By: #### C BCA, PINR, 66977-5, BMP, 68260-4, 09197-2, LIVR, 48677-9, 02976-7, THYR, 54540-4 #### [facility] ([id number]) [address] [place] [address] PT Coag (PPP) [Time] 14.8 s High 9.8-13.2 [facility] Comment on above: Result Comment: NEW REFERENCE RANGE Performed By: #### C BCA, PINR, 14408-3, BMP, 66685-1, 25381-5, LIVR, 37910-7, 88864-5, THYR, 92102-4 #### [facility] ([id number]) [address] [place] [address] SARS/FLU A+B/RSV by NAAT/Mol ecularon 11-21-2023 SARS/FLU A+B/RSV by NAAT/Molecular FLU A PCR Negative (qualifier value) FLU B PCR Negative (qualifier value) RSV by PCR Negative (qualifier value) SARS CoV 2 Not detected (qualifier value) NOTE The Xpert Xpress SARS-CoV-2/Flu/RSV Plus test is a rapid, multiplexed real-time RT-PCR test intended for the simultaneous qualitative detection and differentiation of SARS-CoV-2, influenza A, influenza B and respiratory syncytial virus (RSV) viral RNA from individuals suspected of respiratory viral infection consistent with COVID-19 by their healthcare provider. This test has not been validated in asymptomatic patients. The Xpert Xpress SARS-CoV-2 test is intended for use by qualified and trained operators who are performing tests using either [employer] or [employer] systems and is limited to laboratories that meet the CLIA requirements to perform high and moderate complexity tests. The Xpert Xpress SARS-CoV-2/Flu/RSV Plus is only for use under the Food and Drug Administration's Emergency Use Authorization. Results are for the simultaneous detection and differentiation of SARS-CoV-2, influenza A, influenza B and RSV nucleic acids in clinical specimens. SARS-CoV-2, influenza A, influenza B and RSV RNA identified by this test are generally detectable in upper respiratory samples during the acute phase of infection. Positive results are indicative of the presence of the identified virus, but do not rule out bacterial infection or co-infection with other pathogens not detected by this test. Clinical correlation with patient history and other diagnostic information is necessary to determine patient infection status. The agent detected may not be the definite cause of disease. Negative results do not preclude SARS-CoV-2, influenza A, influenza B and RSV infection and should not be used as the sole basis for treatment or other patient management decisions. Negative results must be combined with clinical observations, patient history and epidemiological information. An Invalid result may occur with specimen-associated inhibition unable to be resolved with specimen repeat. Fact Sheet for Healthcare Providers: https://www.fda.gov/med ia/757956/download Fact Sheet for Patients: https://www.fda.gov/med ia/768640/download Normal [facility] Comment on above: Performed By: #### N UM #### [facility] ([id number]) [address] [place] [address], [place] [address] THYROID PROFILEon 11-21-2023 Free T4 [Mass/Vol] 1.03 ng/dL Normal 0.61-1.60 [facility] Comment on above: Performed By: #### 6 30-4 #### [facility] ([id number]) [address] [facility], [address] [place] [address] TSH 2.80 uIU/mL Normal 0.49-4.67 [facility] Comment on above: Performed By: #### 6 30-4 #### [facility] ([id number]) [address] [facility], [address] [place] [address] TROPONIN Ion 11-21-2023 Troponin I.cardiac [Mass/Vol] 0.02 ng/mL Normal 0.00-0.04 [facility] Comment on above: Performed By: #### 6 30-4 #### [facility] ([id number]) [address] [facility], [address] [place] [address] URINE CULTUREon 11-21-2023 Bacteria identified Cx Nom (U) CULTURE RESULTS >100,000 ORGANISMS/mL PROTEUS MIRABILIS ALONG WITH MODERATE NORMAL URO GENITAL WILBUR [ S = SUSCEPTIBLE R = RESISTANT I = INTERMEDIATE S-DO = Susceptible-dose dependent NS = Non-suscceptible NO = No Interpretation ] Organism: PROTEUS MIRABILIS Antibiotic Interpretation BRAYDEN Status AMPICILLIN S <=2 F AMP/SULBACTAM S <=2/1 F CEFAZOLIN S <=4 F CEFTRIAXONE S <=1 F CIPROFLOXACIN S 1 F GENTAMICIN S <=1 F LEVOFLOXACIN S 0.5 F NITROFURANTOIN R 64 F PIPERACIL/TAZOBACTAM S <=4 F TOBRAMYCIN S <=1 F TRIMETH/SULFAMETHOXAZOL E S <=1/19 F Susceptible [facility] Comment on above: Performed By: #### N UM #### [facility] ([id number]) [address] [place] [address], [place] [address] URN MACROSCOPIC NURon 2023 BILIRUBIN MIKE Negative Normal NEG [facility] Comment on above: Performed By: #### 6 30-4 #### [facility] ([id number]) [address] [facility], [address] [place] [address] BLOOD/HGB MIKE Large Abnormal NEG [facility] Comment on above: Performed By: #### 6 30-4 #### [facility] ([id number]) [address], [address] [place] [address] GLUCOSE MIKE Negative Normal NEG [facility] Comment on above: Performed By: #### 6 30-4 #### [facility] ([id number]) [address], [address] [place] [address] KETONES MIKE Negative Normal NEG [facility] Comment on above: Performed By: #### 6 30-4 #### [facility] ([id number]) [address], [address] [place] [address] LEUKOCYTE ESTERASE MIKE Large Abnormal NEG [facility] Comment on above: Performed By: #### 6 30-4 #### [facility] ([id number]) [address], [address] [place] [address] NITRITE MIKE Negative Normal NEG [facility] Comment on above: Performed By: #### 6 30-4 #### [facility] ([id number]) [address], [address] [place] [address] PH MIKE 8.5 Normal 5.0-8.5 [facility] Comment on above: Performed By: #### 6 30-4 #### [facility] ([id number]) [address], [address] [place] [address] PROTEIN MIKE >=300 Abnormal NEG [facility] Comment on above: Performed By: #### 6 30-4 #### [facility] ([id number]) [address], [address] [place] [address] SPECIFIC GRAVITY MIKE 1.020 Normal 1.003-1.035 [facility] Comment on above: Performed By: #### 6 30-4 #### [facility] ([id number]) [address], [address] [place] [address] UROBILINOGEN MIKE 0.2 eu/dL Normal <1.1 [facility] Comment on above: Performed By: #### 6 30-4 #### [facility] ([id number]) [address] [facility], [address] [place] [address] XR CHEST 1 VWon 11-21-2023 XR CHEST 1 VW XR CHEST 1 VW CHEST ONE VIEW COMPARISON: 08/22/2023 HISTORY: Decreased O2 saturation. FINDINGS: Portable AP chest radiograph demonstrates no pneumothorax. The cardiomediastinal silhouette and pulmonary vasculature are stable. No evidence for focal consolidation or pleural effusion. Old right rib fractures. IMPRESSION: No evidence for an acute cardiopulmonary process. Finalized by Martin Cheung MD on 11/21/2023 6:10 PM Normal [facility] aPTT Coag (PPP) [Time]on aPTT Coag (Bld) [Time] 43 s High 26-37 [facility] Comment on above: Result Comment: NEW REFERENCE RANGE Performed By: #### C BCA, PINR, 59009-2, BMP, 18348-3, 47647-6, LIVR, 19922-9, 89353-6, THYR, 55394-5 #### [facility] ([id number]) [address] [place] [address] BASIC METABOLIC PANLon 11-17 Anion gap [Moles/Vol] 11 mmol/L Normal 5-15 [facility] Comment on above: Performed By: #### C BC, BMP, 29199-3 #### [facility] ([id number]) [address] [place] [address] Calcium [Mass/Vol] 8.1 mg/dL Low 8.5-10.5 [facility] Comment on above: Performed By: #### C BC, BMP, 87567-1 #### [facility] ([id number]) [address] [place] [address] Chloride [Moles/Vol] 108 mmol/L Normal 98-109 [facility] Comment on above: Performed By: #### C BRYSON [facility], #### [facility] ([id number]) [address] [place] [address] CO2 [Moles/Vol] 23 mmol/L Normal 22-32 [facility] Comment on above: Performed By: #### C BRYSON [facility], #### [facility] ([id number]) [address] [place] [address] Creatinine [Mass/Vol] 1.36 mg/dL High 0.70-1.20 [facility] Comment on above: Result Comment: METH OD TRACEABLE TO IDMS STANDARD Performed By: #### C BRYSON [facility], #### [facility] ([id number]) [address] [place] [address] GFR/1.73 sq M.predicted among non-blacks MDRD (S/P/Bld) [Vol rate/Area] 54 mL/min/{1.73_m2} Low >59 [facility] Comment on above: Result Comment: Reported eGFR is based on the CKD-EPI 2020 equation that does not use a race coefficient. Performed By: #### C BRYSON [facility], #### [facility] ([id number]) [address] [place] [address] Glucose [Mass/Vol] 84 mg/dL Normal 65-99 [facility] Comment on above: Performed By: #### C BRYSON [facility], #### [facility] ([id number]) [address] [place] [address] Potassium [Moles/Vol] 4.1 mmol/L Normal 3.5-5.0 [facility] Comment on above: Performed By: #### C BRYSON [facility], #### [facility] ([id number]) [address] [place] [address] Sodium [Moles/Vol] 142 mmol/L Normal 134-146 [facility] Comment on above: Performed By: #### C BRYSON [facility], #### [facility] ([id number]) [address] [place] [address] Urea nitrogen [Mass/Vol] 33 mg/dL High 5-27 [facility] Comment on above: Performed By: #### Lita MASSEY [facility], #### [facility] ([id number]) [address] [place] [address] COMPLETE BLOOD COUNTon 11-17 Erythrocyte distribution width (RBC) [Ratio] 17.3 % High 11.5-15.0 [facility] Comment on above: Performed By: #### Lita MASSEY [facility], #### [facility] ([id number]) [address] [place] [address] Hematocrit (Bld) [Volume fraction] 36.4 % Low 39-49 [facility] Comment on above: Performed By: #### Lita MASSEY [facility], 69735-4 #### [facility] ([id number]) [address] [place] [address] Hemoglobin (Bld) [Mass/Vol] 11.8 g/dL Low 13.0-17.0 [facility] Comment on above: Performed By: #### Lita MASSEY [facility], #### [facility] ([id number]) [address] [place] [address]9547 MCH (RBC) [Entitic mass] 29.4 pg Normal 27-34 [facility] Comment on above: Performed By: #### ASHELY ALARCON, #### [facility] ([id number]) [address] [place] [address]389 MCHC (RBC) [Mass/Vol] 32.3 g/dL Normal 32-36 [facility] Comment on above: Performed By: #### C BRYSON [facility], #### [facility] ([id number]) [address] [place] [address]774 MCV (RBC) [Entitic vol] 91 fL Normal 80-100 [facility] Comment on above: Performed By: #### Lita MASSEY [facility], #### [facility] ([id number]) [address] [place] [address] 47453 Platelet mean volume (Bld) [Entitic vol] 8.6 fL Normal 7-12 [facility] Comment on above: Performed By: #### Lita MASSEY [facility], #### [facility] ([id number]) [address] [place] [address]696 Platelets (Bld) [#/Vol] 287 10*3/uL Normal 150-450 [facility] Comment on above: Performed By: #### Lita MASSEY [facility], #### [facility] ([id number]) [address] [place] [address] 77766 RBC COUNT 4.00 X10E12/L Low 4.10-5.70 [facility] Comment on above: Performed By: #### Lita MASSEY [facility], #### [facility] ([id number]) [address] [place] [address]149 WBC (Bld) [#/Vol] 9.1 10*3/uL Normal 4.0-11.0 [facility] Comment on above: Performed By: #### Lita MASSEY [facility], #### [facility] ([id number]) [address] [place] [address] MAGNESIUMon 11-17-2023 Magnesium [Mass/Vol] 2.0 mg/dL Normal 1.8-2.6 [facility] Comment on above: Performed By: #### C , [facility], 72425-0 #### [facility] ([id number]) [address] [place] [address] 97186 URINE CULTUREon 10-30-2023 Bacteria identified Cx Nom (U) CULTURE RESULTS >100,000 ORGANISMS/mL PROTEUS MIRABILIS ALONG WITH FEW NORMAL URO GENITAL WILBUR Organism: PROTEUS MIRABILIS Antibiotic Interpretation BRAYDEN Status AMPICILLIN S <=2 F AMP/SULBACTAM S <=2/1 F CEFAZOLIN S <=4 F CEFTRIAXONE S <=1 F CIPROFLOXACIN S 1 F GENTAMICIN S <=1 F LEVOFLOXACIN S 1 F NITROFURANTOIN R 64 F PIPERACIL/TAZOBACTAM S <=4 F TOBRAMYCIN S <=1 F TRIMETH/SULFAMETHOXAZOL E S <=19 F Susceptible [facility] Comment on above: Performed By: #### 6 30-4 #### [facility] ([id number]) [address] [place] [address], [address] [place] [address] URN MACROSCOPIC NURon 2023 BILIRUBIN MIKE Negative Normal NEG [facility] Comment on above: Performed By: #### N UM #### [facility] ([id number]) [address] [place] [address]40 BLOOD/HGB MIKE Large Abnormal NEG [facility] Comment on above: Performed By: #### N UM #### [facility] ([id number]) [address] [place] [address]443 GLUCOSE MIKE Negative Normal NEG [facility] Comment on above: Performed By: #### N UM #### [facility] ([id number]) [address] [place] [address]73 KETONES MIKE Negative Normal NEG [facility] Comment on above: Performed By: #### N UM #### [facility] ([id number]) [address] [place] [address] 90517 LEUKOCYTE ESTERASE MIKE Large Abnormal NEG [facility] Comment on above: Performed By: #### N UM #### [facility] ([id number]) [address] [place] [address] 70768 NITRITE MIKE Negative Normal NEG [facility] Comment on above: Performed By: #### N UM #### [facility] ([id number]) [address] [place] [address] 28072 PH MIKE 6.0 Normal 5.0-8.5 [facility] Comment on above: Performed By: #### N UM #### [facility] ([id number]) [address] [place] [address] 13075 PROTEIN MIKE 30 mg/dL Abnormal NEG [facility] Comment on above: Performed By: #### N UM #### [facility] ([id number]) [address] [place] [address] 10808 SPECIFIC GRAVITY MIKE 1.015 Normal 1.003-1.035 [facility] Comment on above: Performed By: #### N UM #### [facility] ([id number]) [address] [place] [address] 52050 UROBILINOGEN MIKE 0.2 eu/dL Normal <1.1 [facility] Comment on above: Performed By: #### N UM #### [facility] ([id number]) [address] [place] [address]952 URINALYSISon 10-12-2023 Bilirubin Ql (U) Negative Normal NEG [facility] Comment on above: Performed By: #### U A #### [facility] ([id number]) [address] [place] [address] 24284 BLOOD/HGB Trace Abnormal NEG [facility] Comment on above: Performed By: #### U A #### [facility] ([id number]) [address] [place] [address] 06320 Color (U) YELLOW Normal YELLOW [facility] Comment on above: Performed By: #### U A #### [facility] ([id number]) [address] [place] [address] [place] [address] Glucose Ql (U) Negative Normal NEG [facility] Comment on above: Performed By: #### U A #### [facility] ([id number]) [address] [place] [address] [place] [address] Ketones Ql (U) Negative Normal NEG [facility] Comment on above: Performed By: #### U A #### [facility] ([id number]) [address] [place] [address] [place] [address] Leukocyte esterase Test strip Ql (U) SMALL Abnormal NEG [facility] Comment on above: Performed By: #### U A #### [facility] ([id number]) [address] [place] [address] [place] [address] Nitrite Ql (U) Negative Normal NEG [facility] Comment on above: Performed By: #### U A #### [facility] ([id number]) [address] [place] [address]697 pH (U) 6.0 [pH] Normal 5.0-8.5 [facility] Comment on above: Performed By: #### U A #### [facility] ([id number]) [address] [place] [address] [place] [address] Protein Ql (U) Negative Normal NEG [facility] Comment on above: Performed By: #### U A #### [facility] ([id number]) [address] [place] [address] [place] [address] R.B.CELLS 2 /hpf Normal 0-5 [facility] Comment on above: Performed By: #### U A #### [facility] ([id number]) [address] [place] [address], [place] [address] Specific gravity (U) [Rel density] 1.020 Normal 1.003-1.035 [facility] Comment on above: Performed By: #### U A #### [facility] ([id number]) [address] [place] [address] 75333 SQUAMOUS EPITHELIUM 3 /hpf Normal 0-5 [facility] Comment on above: Performed By: #### U A #### [facility] ([id number]) [address] [place] [address] 98135 TURBIDITY CLEAR Normal CLEAR [facility] Comment on above: Performed By: #### U A #### [facility] ([id number]) [address] [place] [address] 93536 Urobilinogen Qn (U) 0.2 {Ryland'U}/dL Normal <1.1 [facility] Comment on above: Performed By: #### U A #### [facility] ([id number]) [address] [place] [address] 28650 W.B.CELLS 15 /hpf High 0-5 [facility] Comment on above: Performed By: #### U A #### [facility] ([id number]) [address] [place] [address] 22106 URINE CULTUREon 10-12-2023 Bacteria identified Cx Nom (U) CULTURE RESULTS 50,000 to 100,000 ORGANISMS/mL ENTEROCOCCUS SPECIES Ampicillin or Amoxicillin is the drug of choice for uncomplicated cystitis caused by enterococci. Cephalosporins are inappropriate. 10,000 to 50,000 ORGANISMS/mL PROTEUS MIRABILIS Organism: ENTEROCOCCUS SPECIES Antibiotic Interpretation BRAYDEN Status AMPICILLIN S <=2 F LEVOFLOXACIN R >=8 F NITROFURANTOIN S <=16 F VANCOMYCIN S 1 F Organism: PROTEUS MIRABILIS Antibiotic Interpretation BRAYDEN Status AMPICILLIN S <=2 F AMP/SULBACTAM S <=2/1 F CEFAZOLIN S <=4 F CEFTRIAXONE S <=1 F CIPROFLOXACIN S 1 F GENTAMICIN S <=1 F LEVOFLOXACIN S 1 F NITROFURANTOIN R 128 F PIPERACIL/TAZOBACTAM S <=4 F TOBRAMYCIN S <=1 F TRIMETH/SULFAMETHOXAZOL E S <=/ F Susceptible [facility] Comment on above: Performed By: #### 6 30-4 #### [facility] ([id number]) [address] [facility], [address] [place] [address] Rad - Other Radiology Report on 12-29-2022 Rad - Other Radiology Report [id number]#[facility]-10-2022 Outside Records [id number]#1.00O [facility] Normal [facility] 10-22-2022 Outside Records [id number]#1.00O [facility] Normal [facility] 10-12-2022 Outside Records [id number]#1.00 [facility] 08-24-2022 Outside Records [id number]#1.00 [facility] 08-03-2022 Outside Records [id number] 218 [id number]#1.00[facility] Outside Records [id number] 218 [id number]#1.00[facility] Outside Records [id number] 218 [id number]#1.00O [facility] Normal [facility] 08-02-2022 Outside Records [id number]#1.00O [facility] 04-14-2022 Outside Records [id number] [id number]#1.00 [facility] 04-05-2022 Outside Records [id number] 120 [id number]#1.00O [facility] Outside [facility]son 03-19-2022 Outside Records [id number] 503 [id number]#1.00O [facility] Outside [facility] 03-09-2022 Outside Records [id number] 022 [id number]#1.00 [facility] Outside Records [id number] [facility] Outside Records [id number]#1.00 [facility] Outside Recordson 03-08-2022 Outside Records [id number]#1.00O [facility] Outside Recordson 03-05-2022 Outside Records [id number]#1.00O [facility] COVID-19 PCRon 09-12-2020 SARS-CoV-2, CARIE Not Detected Normal Not Detected [facility] Comment on above: Result Comment: This nucleic acid amplification test was developed and its performance characteristics determined by [facility]. Nucleic acid amplification tests include PCR and TMA. This test has not been FDA cleared or approved. This test has been authorized by FDA under an Emergency Use Authorization (EUA). This test is only authorized for the duration of time the declaration that circumstances exist justifying the authorization of the emergency use of in vitro diagnostic tests for detection of SARS-CoV-2 virus and/or diagnosis of COVID-19 infection under section 564(b)(1) of the Act, 21 U.S.C. 360bbb-3(b) (1), unless the authorization is terminated or revoked sooner. When diagnostic testing is negative, the possibility of a false negative result should be considered in the context of a patient's recent exposures and the presence of clinical signs and symptoms consistent with COVID-19. An individual without symptoms of COVID-19 and who is not shedding SARS-CoV-2 virus would expect to have a negative (not detected) result in this assay. Performed By: #### C VDPCR #### [facility] [address] [place] [id number] Kenji Blanco COVID-19 PCRon 09-05-2020 SARS-CoV-2, CARIE Not Detected Normal Not Detected [facility] Comment on above: Result Comment: This nucleic acid amplification test was developed and its performance characteristics determined by [facility]. Nucleic acid amplification tests include PCR and TMA. This test has not been FDA cleared or approved. This test has been authorized by FDA under an Emergency Use Authorization (EUA). This test is only authorized for the duration of time the declaration that circumstances exist justifying the authorization of the emergency use of in vitro diagnostic tests for detection of SARS-CoV-2 virus and/or diagnosis of COVID-19 infection under section 564(b)(1) of the Act, 21 U.S.C. 360bbb-3(b) (1), unless the authorization is terminated or revoked sooner. When diagnostic testing is negative, the possibility of a false negative result should be considered in the context of a patient's recent exposures and the presence of clinical signs and symptoms consistent with COVID-19. An individual without symptoms of COVID-19 and who is not shedding SARS-CoV-2 virus would expect to have a negative (not detected) result in this assay. Performed By: #### C VDPCR #### [facility] [address] [place] [id number] Kenji Blanco Vital Signs Date Time Vital Sign Value Performing Clinician Devini tdedy 10-13-2023 09:57-0500 Body height 165.1 cm Katherine Mohr MD Work Phone: [facility] 10-13-2023 09:57-0500 Body mass index (BMI) [Ratio] 37.44 kg/m2 Katherine Mohr MD Work Phone: [facility] 10-13-2023 09:57-0500 Body weight 102.06 kg Katherine Mohr MD Work Phone: [facility] 10-13-2023 09:57-0500 Diastolic blood pressure 60 mm[Hg] Katherine Mohr MD Work Phone: [facility] 10-13-2023 09:57-0500 Heart rate 96 /min Katherine Mohr MD Work Phone: [facility] 10-13-2023 09:57-0500 SaO2% (BldA) [Mass fraction] 91 % Katherine Mohr MD Work Phone: [facility] 10-13-2023 09:57-0500 Systolic blood pressure 90 mm[Hg] Katherine Mohr MD Work Phone: [facility] Encounters Encounter Date Encounter Type Care Provider Facility Start: 01-27-2024 End: 01-28-2024 ambulatory [facility] Start: 12-26-2023 End: 12-27-2023 ambulatory [facility] Start: 12-02-2023 End: 12-03-2023 ambulatory [facility] Start: 12-01-2023 End: 12-02-2023 [facility] Start: 11-28-2023 End: 11-29-2023 ambulatory [facility] Start: 11-23-2023 End: 11-23-2023 ambulatory [facility] Start: 11-22-2023 End: 11-24-2023 Evaluation and management of inpatient [facility] Start: 11-22-2023 End: 11-23-2023 Evaluation and management of inpatient [facility] Start: 11-21-2023 End: 11-23-2023 Emergency department patient visit DARRYN SAWYER [facility] Start: 11-17-2023 End: 11-18-2023 ambulatory [facility] Start: 11-02-2023 End: 11-02-2023 ambulatory ANTONIO FOX [facility] Start: 10-30-2023 End: 10-30-2023 Emergency department patient visit LOBO MACHUCA [facility] Start: 10-13-2023 End: 10-13-2023 ambulatory KATHERINE MOHR [facility] Start: 10-13-2023 End: 10-13-2023 Office outpatient visit 15 minutes Katherine Mohr MD Work Phone: [facility] Comment on above: Paroxysmal atrial fi brillation (CMS-HCC) (Primary Dx); Cardiomyopathy; Chronic systolic CHF (congestive heart failure) (CMS-HCC); Aneurysm of ascending aorta without rupture (CMS-HCC); Bradycardia Start: 10-12-2023 End: 10-13-2023 ambulatory [facility] Start: 09-09-2020 End: 09-10-2020 Patient encounter procedure YOLANDA BARRETO Facility:[facility] Start: 09-02-2020 End: 09-02-2020 Patient encounter procedure YOLANDA BARRETO Facility:[facility] Procedures Date Procedure Procedure Detail Performing Clinician Start: 10-13-2023 Follow-up visit Follow-up [place] MOHR Start: 08-12-2023 Adult depression screening assessment Katherine Mohr MD Work Phone: Plan of Treatment Date Care Activity Detail Author Start: 07-27-2030 DTaP,Tdap and Td Vaccines (2 - Td or Tdap) DTaP,Tdap and Td Vaccines (2 - Td or Tdap) [facility] Start: 10-13-2024 Adult BMI Screening Adult BMI Screening [facility] Start: 10-13-2024 Tobacco Screening Tobacco Screening [facility] Start: 08-12-2024 Depression Screening Depression Screening [facility] Start: 06-17-2023 COVID-19 Vaccine ( season) COVID-19 Vaccine () [facility] Start: 06-17-2023 Influenza vaccination Influenza Vaccine [facility] Start: 2012 Fall Risk Screening Fall Risk Screening [facility] Start: 1997 Administration of varicella zoster vaccine Zoster (Shingles) Vaccine (1 of 2) [facility] Start: 1965 Adult BMI Follow Up Plan Adult BMI Follow Up Plan [facility] Start: 1945 Medicare Annual Wellness Visit Medicare Annual Wellness Visit [facility] Immunizations Immunization Date Immunization Notes Care Provider Fa cili 07-24-2021 Influenza, High-dose , Quadrivalent Katherine Mohr MD Work Phone: [facility] 07-24-2021 influenza virus vacc ine, unspecified formulation Katherine Mohr MD Work Phone: [facility] 09-01-2020 influenza, high dose seasonal, preservative-free Katherine Mohr MD Work Phone: [facility] 07-27-2020 tetanus toxoid, redu reyes diphtheria toxoid, and acellular pertussis vaccine, adsorbed Katherine Mohr MD Work Phone: [facility] 12-15-2017 influenza, injectabl e, quadrivalent, preservative free Katherine Mohr MD Work Phone: [facility] 10-21-2015 influenza virus vacc ine, unspecified formulation Katherine Mohr MD Work Phone: [facility] 10-21-2015 pneumococcal polysaccharide vaccine, 23 valent Katherine Mohr MD Work Phone: [facility] 09-06-2014 influenza virus vacc ine, unspecified formulation Katherine Mohr MD Work Phone: [facility] 10-25-2011 influenza virus vacc ine, unspecified formulation Katherine Mohr MD Work Phone: [facility] 12-04-2009 novel influenza-H1N1 -09, preservative-free, injectable Katherine Mohr MD Work Phone: [facility] Payers Date Payer Category Payer Medicaid MEDICAID [facility] M EDICAID [id number] 2021-Present [phone] [address] [place] [address] [id number] 1990 Medicare MEDICARE MEDICAR E PART A & B [id number] 1990-Present [phone] [address] [place] [address] [id number] 1959 Medicaid [id number] 1959 Medicare [id number] 1945 Unknown [id number] 1947 Unknown [id number] [id number] 1947 Unknown [id number] 2.16.840.1.482667.3.579.2.128 1947 Unknown [id number] 2.16.840.1.149052.3.579.2.128 1947 Unknown [id number] 2.16.840.1.979379.3.579.2.128 1947 Unknown [id number] 2.16.840.1.006477.3.579.2.1286 1947 Unknown [id number] 2.16.840.1.739139.3.579.2.1286 1947 Unknown [id number] 2.16.840.1.251269.3.579.2.128 1947 Unknown [id number] 2.16.840.1.700374.3.579.2.128 1947 Unknown [id number] 2.16.840.1.371930.3.579.2.1285 1947 Unknown [id number] 2.16.840.1.124174.3.579.2.128 1947 Unknown [id number] 2.16.840.1.300549.3.579.2.128 1947 Unknown [id number] 2.16.840.1.048516.3.579.2.128 1947 Unknown [id number] 2.16.840.1.718938.3.579.2.1285 1947 Unknown [id number] 2.16.840.1.855842.3.579.2.1285 1947 Unknown [id number] 2.16.840.1.605171.3.579.2.1285 1947 Unknown [id number] 2.16.840.1.507509.3.579.2.1285 1947 Unknown [id number] Social History Date Type Detail Facility Start: 09-15-2022 Tobacco smoking stat [facility] Ex-smoker [facility] History of tobacco use Current smoker [facility] Start: 09-15-2022 Tobacco use and exposure Smoke less tobacco non-user [facility] Start: 10-13-2023 Alcohol intake Current drinke r of alcohol (finding) [facility] Start: 10-12-2022 End: 08-11-2023 History of Social function [facility] Start: 10-12-2022 End: 08-11-2023 Social connection and isolation panel [facility] Do you belong to any clubs or organizations such as jehovah's witness groups, unions, fraternal or athletic groups, or school groups? No [facility] Are you now , , , , never or living with a partner? [facility] How often to you hav e a drink containing alcohol? 2-4 times a month [facility] How many standard dr inks containing alcohol do you have on a typical day? 1 or 2 [facility] How often do you hav e 6 or more drinks on 1 occasion? Never [facility] How hard is it for y ou to pay for the very basics like food, housing, medical care, and heating Not hard at all [facility] Do you feel stress - tense, restless, nervous, or anxious, or unable to sleep at night because your mind is troubled all the time - these days [OSQ] Not at all [facility] Start: 09-15-2022 Tobacco Comment quit 15 years ago [facility] Start: 12-30-2021 Alcohol Comment WINE [employer] -H APPY HOUR [employer] Start: 1945 Sex Assigned At Not on file [facility] Procedure Code Equipment Code Equipment Origin al Text Equipment Identifier Dates Plate Bn 54mm St d 6 Hle/Hd 3 Hle/Shft 2 Clmn Va Lcp Cmbn Rds Rpl [id number] - [id number] - [id number] Start: 09-05-2021 Screw Bn 24mm 2. [address] Slf Rtn Strdr Lp Hd Aguila Ss T8 Ns - [id number] - [id number] Start: 09-05-2021 Goals Date Patient Goal Desired Activity /State Personal health goal Comment on above: Formatting of this n ote might be different from the original. Evaluation of progress towards goal: Patient's guardian plans for patient to return to [facility] History of Present illness Narrative 10-13-2023 Katherine Mohr MD - 10/13/2023 10:15 AM EST Note Date & Type Note Facility 10-13-2023 History of Present illness Narrative Jalen Rodriguez Date of visit: 10/13/2023 Date of : 1945 Age: 78 y.o. Patient Active Problem List Diagnosis Herpes simplex esophagitis Gross hematuria Cellulitis Acute cystitis with hematuria Hypernatremia Dehydration COVID-19 History of non-ST elevation myocardial infarction (NSTEMI) Atrial flutter ([facility]) Chronic systolic CHF (congestive heart failure) ([facility] Acute pulmonary embolism ([facility]) Urinary retention Ascending aortic aneurysm ([facility]) Colonic obstruction ([facility]) Acute respiratory failure with hypoxia ([facility]) Gastrointestinal hemorrhage associated with peptic ulcer Oropharyngeal dysphagia Volume overload Surgical wound, non healing Obesity (BMI 30-39.9) Pneumonia Paroxysmal atrial fibrillation ([facility]) Insomnia Schizophrenia ([facility]) Weakness Hypomagnesemia Dysphagia Elevated liver enzymes Cardiomyopathy ([facility]) Skin excoriation Acute on chronic respiratory failure with hypoxia ([facility]) COPD exacerbation ([facility]) Unresponsiveness No Known Allergies Current Outpatient Medications Medication Sig Dispense Refill albuterol sulfate (PROAIR HFA INHL) Inhale 2 puffs every 4 (four) hours as needed. apixaban (ELIQUIS) 5 mg tablet Take 1 tablet (5 mg total) by mouth 2 (two) times a day. ascorbic acid (VITAMIN C) 500 mg tablet Take 1 tablet (500 mg total) by mouth in the morning. budesonide (PULMICORT) 0.5 mg/2 mL nebulizer solution Inhale 2 mL (0.5 mg total) by nebulization every 12 (twelve) hours. bumetanide (BUMEX) 1 mg tablet Take 1 tablet (1 mg total) by mouth daily. 60 tablet 11 calcium carbonate-vitamin D3 (CALCIUM 600 + D,3,) 600 mg(1,500mg) -400 units per tablet Take 1 tablet by mouth in the morning. ciprofloxacin HCl (CIPRO) 500 mg tablet Take 1 tablet (500 mg total) by mouth in the morning and 1 tablet (500 mg total) before bedtime. desvenlafaxine (PRISTIQ) 25 mg 24 hr tablet Take 1 tablet (25 mg total) by mouth in the morning. docusate sodium (COLACE) 100 mg capsule Take 1 capsule (100 mg total) by mouth daily as needed. ferrous sulfate 324 mg (65 mg iron) tablet,delayed release (DR/EC) EC tablet Take 1 tablet (324 mg total) by mouth in the morning and at bedtime. finasteride (PROSCAR) 5 mg tablet Take 1 tablet (5 mg total) by mouth in the morning. Takes in am. hyoscyamine sulfate (LEVSIN) 0.125 mg tablet,disintegrating Place 1 tablet (125 mcg total) under the tongue every 4 (four) hours as needed (bladder spasms). 180 each 0 lactulose (CHRONULAC) 20 gram/30 mL solution Take 15 mL (10 g total) by mouth in the morning and 15 mL (10 g total) at noon and 15 mL (10 g total) before bedtime. lanolin-mineral oil (EUCERIN ORIGINAL) lotion Apply 1 application topically 2 (two) times a day. Apply to BLE; avoid in b/w toes. 0 levalbuterol (XOPENEX) 1.25 mg/3 mL nebulizer solution Inhale 3 mL (1.25 mg total) by nebulization every 6 (six) hours as needed for wheezing. 72 mL 0 midodrine (PROAMATINE) 5 mg tablet Take 1 tablet (5 mg total) by mouth 3 (three) times a day. ondansetron (ZOFRAN) 4 mg tablet Take 1 tablet (4 mg total) by mouth every 8 (eight) hours as needed for nausea or vomiting. pantoprazole (PROTONIX) 40 mg EC tablet Take 1 tablet (40 mg total) by mouth 2 (two) times a day with meals. 0 polyvinyl alcohol (LIQUITEARS) 1.4 % ophthalmic solution Administer 1 drop to both eyes as needed for dry eyes. potassium chloride (KLOR-CON M 20) 20 MEQ CR tablet Take 1 tablet (20 mEq total) by mouth in the morning. rOPINIRole (REQUIP) 0.25 mg tablet Take 1 tablet (0.25 mg total) by mouth 3 (three) times a day. sennosides-docusate sodium (SENOKOT-S) 8.6-50 mg Take 2 tablets by mouth 2 (two) times a day. SYMBICORT 160-4.5 mcg/actuation inhaler Inhale 1 puff in the morning and 1 puff before bedtime. tamsulosin (FLOMAX) 0.4 mg capsule Take 1 capsule (0.4 mg total) by mouth nightly. zinc gluconate 50 mg tablet Take 1 tablet (50 mg total) by mouth in the morning. No current facility-administered medications for this visit. Chief Complaint Patient presents with Follow-up IP FU Paroxysmal atrial fibrillation; maintaining sinus rhythm Chronic heart failure with reduced ejection fraction; EF 35-40% by TTE 04/2022 Cardiomyopathy, no prior ischemic evaluation NSVT Ascending aortic aneurysm; 4.0 cm CTA 08/11/23 Acute hypoxic respiratory failure Septic shock Pneumonia SANTO History of DVT/PE History of sigmoidectomy with ostomy PT AT [facility] AND INSTRUCTED TO PLEASE MAKE SURE PT IS ACCOMPANIED W/STAFF AND SUPPLIES ALONG W/CHANGE OF CLOTHES IF PATIENTS OSTOMY BAG BREAKS History of Present Illness Patient with history of cardiomyopathy with severe LV systolic dysfunction, chronic systolic heart failure, ascending aortic aneurysm 4.2 cm, pulmonary embolism, interstitial lung disease, MRDD. Here for follow-up visit accompanied by his caregiver. Was seen by my partner while hospitalized at [facility] August for management of paroxysmal atrial fibrillation/bradycardia which occurred during sleeping hours. Patient stated that he is feeling fine with no active complaints. Denies any chest pain or shortness of breath. Denied any palpitations or dizziness. Denied orthopnea or edema. No reported heart issues apart from blood pressure running a little bit low this morning, this is chronic for him and takes p.r.n. midodrine for that. Past Medical History: Diagnosis Date Abnormality of albumin Acute cystitis with hematuria Acute kidney failure ([facility]) Acute respiratory failure, unsp w hypoxia or hypercapnia ([facility]) Anemia Anxiety Asthma Atrial fibrillation ([facility]) 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 ([facility]) BPH (benign prostatic hyperplasia) Cardiomyopathy Cellulitis Closed fracture of lower end of right radius with routine healing Cognitive communication deficit Colonic obstruction ([facility]) 02/07/2021 Constipation Contracture of muscle COPD (chronic obstructive pulmonary disease) ([facility]) COVID-19 COVID-19 02/07/2021 Dehydration Dental disease Displaced fracture of right ulna styloid process, subsequent encounter for closed fracture with routine healing Dysphagia Esophagitis GERD (gastroesophageal reflux disease) Gross hematuria Herpesviral infection Hypernatremia Hyperosmolality Hypertension Hypokalemia Impetigo Infrapatellar bursitis Intellectual disability Intestinal obstruction ([facility]) Lobular pneumonia Lymph edema Magnesium deficiency Major depressive disorder, recurrent ([facility]) Muscle weakness (generalized) Neuromuscular dysfunction of bladder OA (osteoarthritis) Obesity OCD (obsessive compulsive disorder) Lourdes syndrome Oropharyngeal dysphagia Other abnormalities of gait and mobility Other fracture of upper and lower end of left fibula, sequela Other specified abnormalities of plasma proteins Peptic ulcer Recurrent hematuria Retention of urine Retrograde ejaculation Schizophrenia ([facility]) Sleep apnea Urinary frequency UTI (urinary tract infection) Venous ulcer of leg ([facility]) No data recorded No data recorded No data recorded Past Surgical History: Procedure Laterality Date CATARACT EXTRACTION CLOSED REDUCTION PERCUTANEOUS PINNING Left 08/20/2020 Performed by Ethan Leon MD at [facility] COLON SURGERY COLONOSCOPY COLONOSCOPY Left 02/09/2021 Performed by Yolanda Garcia MD at [facility] COLONOSCOPY with placement of decompression tube Left 02/17/2021 Performed by Lizette Seo MD at [facility] CYSTOSCOPY N/A 07/17/2019 Performed by Tim Patterson MD at [facility] EGD/PEG TUBE PLACEMENT N/A 09/29/2020 Performed by Mark Irene MD at [facility] FINGER SURGERY Right INCISION AND DRAINAGE Left 08/20/2020 Performed by Ethan Leon MD at [facility] LAPAROTOMY EXPLORATORY / SIGMOID COLECTOMY / END COLOSTOMY N/A 02/18/2021 Performed by Ten Multani MD at [facility] OPEN REDUCTION INTERNAL FIXATION RADIUS DISTAL Right 09/05/2021 Performed by William Leon DO at [facility] REMOVAL HARDWARE FOOT/TOE Left 02/02/2021 Performed by Ethan Leon MD at [facility] No family history on file. Social History Socioeconomic History Marital status: Single Spouse name: Not on file Number of children: Not on file Years of education: Not on file Highest education level: Not on file Occupational History Not on file Tobacco Use Smoking status: Former Smokeless tobacco: Never Tobacco comments: quit 15 years ago Vaping Use Vaping Use: Never used Substance and Sexual Activity Alcohol use: Yes Comment: WINE [employer] -HAPPY HOUR Drug use: Never Sexual activity: Never Other Topics Concern Caffeine Use Yes Social History Narrative Not on file Social Determinants of Health Financial Resource Strain: Low Risk (10/12/2022) Overall Financial Resource Strain (CARDIA) Difficulty of Paying Living Expenses: Not hard at all Food Insecurity: Unknown (08/11/2023) Hunger Screening Food Insecurity - Worry: Unable to Assess Food Insecurity - Inability: Unable to Assess Transportation Needs: No Transportation Needs (10/12/2022) PRAPARE - Transportation Lack of Transportation (Medical): No Lack of Transportation (Non-Medical): No Physical Activity: Insufficiently Active (10/12/2022) Exercise Vital Sign Days of Exercise per Week: 4 days Minutes of Exercise per Session: 30 min Stress: No Stress Concern Present (10/12/2022) [place] [employer] - Occupational Stress Questionnaire Feeling of Stress : Not at all Social Connections: Moderately Integrated (10/12/2022) Social Connection and Isolation Panel [NHANES] Frequency of Communication with Friends and Family: More than three times a week Frequency of Social Gatherings with Friends and Family: More than three times a week Attends Confucianist Services: More than 4 times per year Active Member of Clubs or Organizations: No Attends Club or Organization Meetings: More than 4 times per year Marital Status: Interpersonal Safety: Not At Risk (10/12/2022) Humiliation, Afraid, Rape, and Kick questionnaire Fear of Current or Ex-Partner: No Emotionally Abused: No Physically Abused: No Sexually Abused: No Review of Systems Review of Systems Constitutional: Negative for chills, fever and malaise/fatigue. HENT: Negative for hearing loss and nosebleeds. Eyes: Negative for blurred vision. Respiratory: Negative for cough, shortness of breath, sputum production and wheezing. Hematologic/Lymphatic: Negative for bleeding problem. Skin: Negative for rash and suspicious lesions. Musculoskeletal: Negative for joint pain and myalgias. Gastrointestinal: Negative for abdominal pain, change in bowel habit, hematochezia, melena, nausea and vomiting. Genitourinary: Negative for dysuria and hematuria. Neurological: Negative for dizziness, focal weakness, headaches and paresthesias. CARDIOVASCULAR: Please review HPI. Physical Examination General appearance: Alert, oriented and cooperative. In no acute distress. Skin: Warm and dry to touch. Head: Normocephalic, without obvious abnormality, atraumatic. Ears, Nose, Mouth, Throat: Throat clear without erythema or exudate. Dentition intact. Eyes: Conjunctivae unremarkable, EOM intact. Neck: No JVD, No carotid bruit. Neck supple, trachea midline. Respiratory: Clear to auscultation bilaterally, no use of accessory muscles. Cardiovascular: RRR with normal S1 and S2 with no murmurs. Gastrointestinal: Soft, non-tender. Bowel sounds normal. Musculoskeletal: No peripheral edema. Neurologic: Oriented to time, person and place, affect appropriate. No focal/major motor defects noted. Psychiatric: Appropriate mood, memory and judgement. VITAL SIGNS: BP 90/60 (BP Site: Right Arm, BP Postition: Sitting) Pulse 96 Ht 165.1 cm (5' 5 ) Wt 102.1 kg (225 lb) SpO2 91% BMI 37.44 kg/m Orders Placed or Reconciled This Encounter Medications calcium carbonate-vitamin D3 (CALCIUM 600 + D,3,) 600 mg(1,500mg) -400 units per tablet Sig: Take 1 tablet by mouth in the morning. ciprofloxacin HCl (CIPRO) 500 mg tablet Sig: Take 1 tablet (500 mg total) by mouth in the morning and 1 tablet (500 mg total) before bedtime. midodrine (PROAMATINE) 5 mg tablet Sig: Take 1 tablet (5 mg total) by mouth 3 (three) times a day. rOPINIRole (REQUIP) 0.25 mg tablet Sig: Take 1 tablet (0.25 mg total) by mouth 3 (three) times a day. ascorbic acid (VITAMIN C) 500 mg tablet Sig: Take 1 tablet (500 mg total) by mouth in the morning. zinc gluconate 50 mg tablet Sig: Take 1 tablet (50 mg total) by mouth in the morning. There are no discontinued medications. IMPRESSIONS/PLAN 1. Paroxysmal atrial fibrillation (CMS-HCC) 2. Cardiomyopathy 3. Chronic systolic CHF (congestive heart failure) (CMS-HCC) 4. Aneurysm of ascending aorta without rupture (CMS-HCC) 5. Bradycardia Previous cardiac related labs and test results were reviewed and discussed with the patient. Chronic HFrEF Cardiomyopathy with EF 35-40% TTE 04/2022 Paroxysmal atrial fibrillation Eliquis Ascending aortic aneurysm, 4.2 cm on CTA chest 12/2022 (stable compared to previous CTA 01/2021) Coronary disease History of PE/DVT Interstitial lung disease History of COVID-19 pneumonia Hx of sigmoidectomy w/ ostomy bag MRDD Patient here for follow-up visit post recent hospitalization. Stable from a cardiac standpoint. Asymptomatic and euvolemic on exam. No cardiac testing ordered today. No change in his current cardiac regimen. Follow-up in 6 months or sooner if needed. Patient or caregiver to call us with any cardiac questions or concerns. TODAYS ORDERS No orders of the defined types were placed in this encounter. FOLLOW UP Return in about 6 months (around 04/13/2024). PCP: Lobo Machuca DO Referring Physician: Lobo Machuca DO [address] [phone] documented in this encounter [facility] Evaluation note Note Date & Type Note Facility Evaluation note Diagnosis Paroxysmal atrial fibrillation (CMS-HCC)- Primary Atrial fibrillation Cardiomyopathy (CMS-HCC) Chronic systolic CHF (congestive heart failure) (CMS-HCC) Aneurysm of ascending aorta without rupture (CMS-HCC) Bradycardia Other specified cardiac dysrhythmias documented in this encounter [facility] Instructions Note Date & Type Note Facility Instructions Not on filedocumented in this en counter [facility] Summary Purpose Family History No Family History Records FoundNo Family History Records FoundNo Family History Records FoundNo Family History Records FoundNo Family History Records Found Advance Directives No Advanced Directives Records FoundDocuments on File Type Date Recorded Patient Scientific 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 Associate Expl anation DNR Physician Order 08/25/2023 2:34 PM Advance Directive 08/11/2023 6:04 PM Adva nced Directive 08-11-23 DNR Physician Order 03/18/2022 11:05 AM DNR Physician Order 09/30/2021 8:34 AM DNR Physician Order 02/16/2021 11:13 AM DNR Physician Order 10/15/2020 9:46 AM Latest Code Status on File Code Status Date Activated Date Inactivated Comments DNR Com[facility] Arrest (DNR-CCA) [place] 08/16/2023 2:45 PM 08/24/2023 1:03 PM Code Status History Code Status Date Activated Date Inactivated Comments Full Code 08/12/2023 1:02 PM 08/16/2023 2:45 PM DNR Comfort Care Arrest (DNR -CCA) [place] 10/11/2022 9:52 AM 10/19/2022 1:02 PM DNR Comfort Care Arrest (DNR -CCA) [place] 08/02/2022 11:43 AM 08/07/2022 6:45 PM DNR Comfort Care Arrest (DNR -CCA) [place] 08/01/2022 11:08 PM 08/02/2022 10:10 AM Additional Source Comments (unrecognized sect ion and content) No Status Records FoundNo Status Records FoundNo Status Records FoundNo Status Records FoundNo Status Records Found INFORMATION SOURCE (unrecogn ized section and content) DATE CREATED AUTHOR 09/19/2020 [facility] DATE CREATED AUTHOR AUTHOR'S ORGANIZ ATION 12/30/2022 [facility] DATE CREATED AUTHOR AUTHOR'S ORGANIZ ATION 11/30/2023 [facility] DATE CREATED AUTHOR AUTHOR'S ORGANIZ ATION 12/27/2023 [facility] DATE CREATED AUTHOR AUTHOR'S ORGANIZ ATION 02/01/2024 [facility] Reason for Visit (unrecogniz ed section and content) Reason Comments Follow-up IP FU Paroxysmal atr ial fibrillation; maintaining sinus rhythm Chronic heart failure with reduced ejection fraction; EF 35-40% by TTE 04/2022 Cardiomyopathy, no prior ischemic evaluation NSVT Ascending aortic aneurysm; 4.0 cm CTA 08/11/23 Acute hypoxic respiratory failure Septic shock Pneumonia SANTO History of DVT/PE History of sigmoidectomy with ostomy PT AT [facility] AND INSTRUCTED TO PLEASE MAKE SURE PT IS ACCOMPANIED W/STAFF AND SUPPLIES ALONG W/CHANGE OF CLOTHES IF PATIENTS OSTOMY BAG BREAKS Care Teams (unrecognized sec tion and content) [employer]otype Mechanic Relationship Specialty Start Date End Date Lobo Machuca DO [address] [phone] PCP - General Family Medicine 01/19/23 FOR RECORDS PERTAINING TO PATIENTS WHO ARE OR HAVE BEEN ENROLLED IN A CHEMICAL DEPENDENCY/SUBSTANCEABUSE PROGRAM, SOME INFORMATION MAY BE OMITTED. This clinical summary was aggregated from multiple sources. Caution should be exercised in using it in the provision of clinical care. This summary normalizes information from multiple sources, and as a consequence, information in this document may materially change the coding, format and clinical context of patient data. In addition, data may be omitted in some cases. CLINICAL DECISIONS SHOULD BE BASED ON THE PRIMARY CLINICAL RECORDS. [email or web address] provides no warranty or guarantee of the accuracy or completeness of information in this document.
== END 2024-06-26 15:31 | disposition home or self-care (01) ==
LOC: LAB 15:30
PROVIDERS: PCP Family Medicine; Visit Provider Nurse Practitioner Adult Health
DX: D64.9 Anemia, unspecified (principal); R31.0 Gross hematuria
CPT/HCPCS: 36415; 85025

== ENCOUNTER 2024-07-17 15:17 | Emergency (ER) | payer MEDICARE, MEDICAID, SELFPAY ==
[2024-07-17 15:23] VITALS: PULSE 100; TEMP 36.7; O2SAT 91; BMI 33.3
--- OUTSIDE RECORDS SUMMARY | 2024-07-17 15:28 | XMS_ITS | CCD ---
Author Organization [facility] Care Team Providers Care [employer] Chief Name Role Phone MARY LOU, YOLANDA Kelly Admitting Unavailable WONDERLY, YOLANDA B Consulting Unavailable WONDERLY, YOLANDA B Attending Unavailable WONDERLY, YOLANDA B Attending Unavailable WONDERLY, YOLANDA B Admitting Unavailable WONDERLY, YOLANDA B Consulting Unavailable Sven Lobo S Primary Care Provider YOBANY WREN Admitting Unavailable YOBANY WREN Attending Unavailable DIGNA, DARRYN H Referring Unavailable SVEN, LOBO S Primary Care Unavailable RAMADAN, ABED Referring Unavailable SVEN, [facility] Primary Care Unavailable KARLOS, CHIKI Referring Unavailable SVEN, LOBO S Primary Care Unavailable KARLOS, CHIKI Referring Unavailable SVEN, [facility] Primary Care Unavailable KATHERINE MOHR Attending Unavailable SVEN, LOBO S Referring Unavailable SVEN, [facility] Primary Care Unavailable SVEN, LOBO S Primary Care Unavailable SVEN, LOBO S Primary Care Unavailable DIGNA, DARRYN H Attending Unavailable SVEN, LOBO S Primary Care Unavailable ROBERT CHILD Attending Unavailable SVEN, LOBO S Primary Care Unavailable STORM SULLIVAN Attending Unavailable KARLOS, CHIKI Referring Unavailable SVEN, LOBO S Primary Care Unavailable SVEN, LOBO S Primary Care Unavailable DIGNA, DARRYN H Attending Unavailable DIGNA, DARRYN H Attending Unavailable DIGNA, DARRYN H Referring Unavailable SVEN, LOBO S Primary Care Unavailable DIGNA, DARRYN H Attending Unavailable DIGNA, DARRYN H Referring Unavailable SVEN, LOBO S Primary Care Unavailable KARLOS, CHIKI Referring Unavailable SVEN, LOBO S Primary Care Unavailable KARLOS, CHIKI Referring Unavailable SVEN, LOBO S Primary Care Unavailable KARLOS, CHIKI Referring Unavailable SVEN, LOBO S Primary Care Unavailable KARLOS, CHIKI Referring Unavailable LOBO MACHUCA Primary Care Unavailable LOBO MACHUCA Referring Unavailable LOBO MACHUCA Primary Care Unavailable STORM SULLIVAN Referring Unavailable LOBO MACHUCA Primary Care Unavailable ANTONIO FOX Referring Unavailable LOBO MACHUCA Primary Care Unavailable LOBO MACHUCA Referring Unavailable LOBO MACHUCA Primary Care Unavailable Medications Current Medications Medication [...] Active docusate sodium 50 mg / sennosides, fdc 8.6 mg oral tablet (1 source) Start: [...] Classification Problem Date Documented Da te Episodic/Chronic Aortic; peripheral; and visceral artery aneurysms (2 sources) Aneurysm of ascending aorta; Translations: [Aneurysm of ascending aorta without rupture ([facility])] Onset: 1 10-12-2023 Chronic Cardiac dysrhythmias (7 sources) Paroxysmal atrial fibrillation; Translations: [Paroxysmal atrial fibrillation] Onset: 1 Resolved: 3 10-12-2023 Chronic Chronic kidney disease (1 source) Chronic kidney disease, unspecified; Translations: [Chronic kidney disease, unspecified] Onset: 4 Chronic Chronic obstructive pulmonary disease and bronchiectasis (2 sources) Acute exacerbation of chronic obstructive airways disease; Translations: [Chronic obstructive pulmonary disease with (acute) exacerbation] Onset: 2 10-14-2022 Chronic Coagulation and hemorrhagic disorders (1 source) Spontaneous ecchymoses; Translations: [Spontaneous ecchymoses] Onset: 4 Episodic Complication of device; implant or graft (1 source) Colostomy hemorrhage; Translations: [Colostomy hemorrhage] Onset: 4 Chronic Congestive heart failure; nonhypertensive (3 sources) Chronic systolic heart failure; Translations: [Chronic systolic (congestive) heart failure] Onset: 1 10-12-2023 Chronic Coronary atherosclerosis and other heart disease (1 source) History of non-ST segment elevation myocardial infarction; Translations: [Old myocardial infarction] Onset: 1 10-31-2020 Chronic Diseases of white blood cells (1 source) Elevated white blood cell count, unspecified; Translations: [Elevated white blood cell count, unspecified] Onset: 4 Chronic Gastrointestinal hemorrhage (1 source) Gastrointestinal hemorrhage; Translations: [Chronic or unspecified peptic ulcer, site unspecified, with hemorrhage] Onset: 1 02-14-2021 Chronic Genitourinary symptoms and ill-defined conditions (1 source) Functional urinary incontinence; Translations: [Functional urinary incontinence] Onset: 4 Chronic Immunizations and screening for infectious disease (4 sources) Contact with and (suspected) exposure to other viral communicable diseases; Translations: [CONTCT EXPS OTH VIRL COMMUNICABL DZ] Onset: 0 Episodic Other injuries and conditions due to external causes (1 source) Other injury of unspecified body region, initial encounter; Translations: [Other injury of unspecified body region, initial encounter] Onset: 4 Episodic Other nervous system disorders (1 source) Unresponsive ; Translations: [Other symptoms and signs involving cognitive functions and awareness] Onset: 3 08-12-2023 Episodic Other nutritional; endocrine; and metabolic disorders (1 source) Body mass index 30+ - obesity; Translations: [Obesity, unspecified] Onset: 1 07-02-2021 Chronic Other nutritional; endocrine; and metabolic disorders (1 source) Hypomagnesemia; Translations: [Hypomagnesemia] Onset: 2 08-01-2022 Chronic Yajaira-; endo-; and myocarditis; cardiomyopathy (except that caused by tuberculosis or sexually transmitted disease) (3 sources) Cardiomyopathy; Translations: [Cardiomyopathy, unspecified] Onset: 2 10-12-2023 Chronic Respiratory failure; insufficiency; arrest (adult) (1 source) [id number] respiratory failure; Translations: [Acute and chronic respiratory failure with hypoxia] Onset: 2 10-14-2022 Chronic Schizophrenia and other psychotic disorders (1 source) Schizophrenia; Translations: [Schizophrenia, unspecified] Onset: 2 08-01-2022 Chronic Unclassified (1 source) Wound Check Onset: 4 Unclassified (1 source) Bleeding/Bruising Onset: 4 Unclassified (1 source) Penile Discharge Onset: 4 Unclassified (1 source) EMS Onset: 4 Unclassified (1 source) Aneurysm of the ascending aorta, without rupture; Translations: [Aneurysm of the ascending aorta, without rupture] Onset: 2 Past or Other Problems Problem Classification Problem Date Documented Da te Episodic/Chronic Acute and unspecified renal failure (1 source) Acute kidney failure, unspecified; Translations: [Acute kidney failure, unspecified] Onset: 11-28-2023 Episodic Cardiac dysrhythmias (3 sources) Bradycardia; Translations: [Bradycardia, unspecified] Onset: 03-16-2022 Resolved: 11-09-2022 10-12-2023 Episodic Complications of surgical procedures or medical care (1 source) Non-healing surgical wound; Translations: [Other complications of procedures, not elsewhere classified, initial encounter] Onset: 03-27-2021 03-27-2021 Episodic Deficiency and other anemia (1 source) Anemia, unspecified; Translations: [Anemia, unspecified] Onset: 11-17-2023 Episodic Fluid and electrolyte disorders (3 sources) Hypernatremia; Translations: [Hyperosmolality and hypernatremia] Onset: 09-24-2020 09-24-2020 Episodic Genitourinary symptoms and ill-defined conditions (3 sources) Bryan hematuria; Translations: [Gross hematuria] Onset: 06-19-2019 01-27-2021 Episodic Intestinal obstruction without hernia (1 source) Obstruction of colon; Translations: [Unspecified intestinal obstruction, unspecified as to partial versus complete obstruction] Onset: 02-08-2021 02-14-2021 Episodic Malaise and fatigue (1 source) Asthenia; Translations: [Weakness] Onset: 08-01-2022 08-02-2022 Episodic Mood disorders (1 source) Mood disorders Onset: 08-12-2023 08-12-2023 Nutritional deficiencies (1 source) Magnesium deficiency; Translations: [Magnesium deficiency] Onset: 11-17-2023 Episodic Other gastrointestinal disorders (1 source) Oropharyngeal dysphagia; Translations: [Dysphagia, oropharyngeal phase] Onset: 02-14-2021 02-14-2021 Episodic Other gastrointestinal disorders (1 source) Dysphagia; Translations: [Dysphagia, unspecified] Onset: 08-02-2022 08-02-2022 Episodic Other injuries and conditions due to external causes (1 source) Excoriation of skin; Translations: [Other injury of unspecified body region, initial encounter] Onset: 10-12-2022 10-12-2022 Episodic Other liver diseases (1 source) Elevated liver enzymes level; Translations: [Abnormal levels of other serum enzymes] Onset: 08-03-2022 08-03-2022 Episodic Other screening for suspected conditions (not mental disorders or infectious disease) (1 source) Other specified abnormal findings of blood chemistry; Translations: [Other specified abnormal findings of blood chemistry] Onset: 11-21-2023 Episodic Pneumonia (except that caused by tuberculosis or sexually transmitted disease) (1 source) Pneumonia; Translations: [Pneumonia, unspecified organism] Onset: 03-05-2022 08-13-2023 Episodic Pulmonary heart disease (1 source) Acute pulmonary embolism; Translations: [Other pulmonary embolism without acute cor pulmonale] Onset: 10-31-2020 10-31-2020 Episodic Residual codes; unclassified (1 source) Insomnia; Translations: [Insomnia, unspecified] Onset: 08-01-2022 08-01-2022 Episodic Residual codes; unclassified (1 source) Altered mental status, unspecified; Translations: [Altered mental status, unspecified] Onset: 11-21-2023 Episodic Residual codes; unclassified (1 source) Clouded consciousness Onset: 11-21-2023 Episodic Respiratory failure; insufficiency; arrest (adult) (1 source) Acute respiratory failure; Translations: [Acute respiratory failure with hypoxia] Onset: 02-14-2021 02-14-2021 Episodic Skin and subcutaneous tissue infections (1 source) Cellulitis; Translations: [Cellulitis, unspecified] Onset: 08-16-2020 08-16-2020 Episodic Urinary tract infections (6 sources) Acute cystitis; Translations: [Acute cystitis with hematuria] Onset: 09-13-2020 08-01-2022 Episodic Viral infection (2 sources) Esophageal herpes simplex infection; Translations: [Other herpesviral infection] Onset: 06-26-2016 01-03-2023 Episodic Results Test Name Value Interpretation Reference Range Facility BASIC METABOLIC PANLon 07-02 Anion gap [Moles/Vol] 10 mmol/L Normal 5-15 [facility] Comment on above: Performed By: #### 6 30-4 #### [facility] ([id number]) [address] [place] [address] Calcium [Mass/Vol] 8.8 mg/dL Normal 8.5-10.[address] [facility] Comment on above: Performed By: #### 6 30-4 #### [facility] ([id number]) [address] [address] [place] [address] Chloride [Moles/Vol] 107 mmol/L Normal 98-109 [facility] Comment on above: Performed By: #### 6 30-4 #### [facility] ([id number]) [address] [address] [place] [address] CO2 [Moles/Vol] 23 mmol/L Normal 22-32 [facility] Comment on above: Performed By: #### 6 30-4 #### [facility] ([id number]) [address] [address] [place] [address] Creatinine [Mass/Vol] 0.93 mg/dL Normal 0.70-1.20 [facility] Comment on above: Result Comment: METH OD TRACEABLE TO IDMS STANDARD Performed By: #### 6 30-4 #### [facility] ([id number]) [address] [address] [place] [address] GFR/1.73 sq M.predicted among non-blacks MDRD (S/P/Bld) [Vol rate/Area] 85 mL/min/{1.73_m2} Normal >59 [facility] Comment on above: Result Comment: Reported eGFR is based on the CKD-EPI 2020 equation that does not use a race coefficient. Performed By: #### 6 30-4 #### [facility] ([id number]) [address], [address] [place] [address] Glucose [Mass/Vol] 108 mg/dL High 65-[address] [facility] Comment on above: Performed By: #### 6 30-4 #### [facility] ([id number]) [address] [place] [address] Potassium [Moles/Vol] 3.8 mmol/L Normal 3.5-5.0 [facility] Comment on above: Performed By: #### 6 30-4 #### [facility] ([id number]) [address], [address] [place] [address] Sodium [Moles/Vol] 140 mmol/L Normal 134-[address] [facility] Comment on above: Performed By: #### 6 30-4 #### [facility] ([id number]) [address], [address] [place] [address] Urea nitrogen [Mass/Vol] 29 mg/dL High 5-27 [facility] Comment on above: Performed By: #### 6 30-4 #### [facility] ([id number]) [address] [address] [place] [address] CBC AND AUTO DIFFon 16 24 ABSOLUTE BASOPHIL 0.0 X10E9/L Normal 0.0-0.[address] [facility] Comment on above: Performed By: #### 6 30-4 #### [facility] ([id number]) [address] [address] [place] [address] ABSOLUTE NEUTROPHIL 10.4 X10E9/L High 1.5-6.6 [facility] Comment on above: Performed By: #### 6 30-4 #### [facility] ([id number]) [address], [address] [place] [address] Basophils/100 WBC (Bld) 0.3 % Normal [facility] Comment on above: Performed By: #### 6 30-4 #### [facility] ([id number]) [address] [place] [address] Eosinophils (Bld) [#/Vol] 0.4 10*3/uL Normal 0.0-0.4 [facility] Comment on above: Performed By: #### 6 30-4 #### [facility] ([id number]) [address] [place] [address] Eosinophils/100 WBC (Bld) 2.7 % Normal [facility] Comment on above: Performed By: #### 6 30-4 #### [facility] ([id number]) [address] [place] [address] Erythrocyte distribution width (RBC) [Ratio] 16.3 % High 11.5-15.0 [facility] Comment on above: Performed By: #### 6 30-4 #### [facility] ([id number]) [address] [place] [address] Hematocrit (Bld) [Volume fraction] 38.2 % Low 39-49 [facility] Comment on above: Performed By: #### 6 30-4 #### [facility] ([id number]) [address], [address] [place] [address] Hemoglobin (Bld) [Mass/Vol] 12.2 g/dL Low 13.0-17.0 [facility] Comment on above: Performed By: #### 6 30-4 #### [facility] ([id number]) [address], [address] [place] [address] Lymphocytes (Bld) [#/Vol] 0.9 10*3/uL Low 1.0-3.5 [facility] Comment on above: Performed By: #### 6 30-4 #### [facility] ([id number]) [address], [address] [place] [address] Lymphocytes/100 WBC (Bld) 6.8 % Normal [facility] Comment on above: Performed By: #### 6 30-4 #### [facility] ([id number]) [address], [address] [place] [address] MCH (RBC) [Entitic mass] 29.6 pg Normal 27-34 [facility] Comment on above: Performed By: #### 6 30-4 #### [facility] ([id number]) [address], [address] [place] [address] MCHC (RBC) [Mass/Vol] 31.8 g/dL Low 32-36 [facility] Comment on above: Performed By: #### 6 30-4 #### [facility] ([id number]) [address], [address] [place] [address] MCV (RBC) [Entitic vol] 93 fL Normal 80-100 [facility] Comment on above: Performed By: #### 6 30-4 #### [facility] ([id number]) [address], [address] [place] [address] Monocytes (Bld) [#/Vol] 1.3 10*3/uL High 0-0.9 [facility] Comment on above: Performed By: #### 6 30-4 #### [facility] ([id number]) [address], [address] [place] [address] Monocytes/100 WBC (Bld) 10.2 % Normal [facility] Comment on above: Performed By: #### 6 30-4 #### [facility] ([id number]) [address] [place] [address] Neutrophils/100 WBC (Bld) 80.0 % Normal [facility] Comment on above: Performed By: #### 6 30-4 #### [facility] ([id number]) [address] [place] [address] Platelet mean volume (Bld) [Entitic vol] 7.8 fL Normal 7-12 [facility] Comment on above: Performed By: #### 6 30-4 #### [facility] ([id number]) [address] [place] [address] Platelets (Bld) [#/Vol] 300 10*3/uL Normal 150-450 [facility] Comment on above: Performed By: #### 6 30-4 #### [facility] ([id number]) [address] [place] [address] RBC COUNT 4.10 X10E12/L Normal 4.10-5.70 [facility] Comment on above: Performed By: #### 6 30-4 #### [facility] ([id number]) [address], [address] [place] [address] WBC (Bld) [#/Vol] 12.9 10*3/uL High 4.0-11.0 [facility] Comment on above: Performed By: #### 6 30-4 #### [facility] ([id number]) [address], [address] [place] [address] BASIC METABOLIC PANLon 06-29 Anion gap [Moles/Vol] 8 mmol/L Normal 5-15 [facility] Comment on above: Performed By: #### 6 30-4 #### [facility] ([id number]) [address], [address] [place] [address] Calcium [Mass/Vol] 8.7 mg/dL Normal 8.5-10.[address] [facility] Comment on above: Performed By: #### 6 30-4 #### [facility] ([id number]) [address], [address] [place] [address] Chloride [Moles/Vol] 107 mmol/L Normal 98-109 [facility] Comment on above: Performed By: #### 6 30-4 #### [facility] ([id number]) [address] [place] [address] CO2 [Moles/Vol] 23 mmol/L Normal 22-32 [facility] Comment on above: Performed By: #### 6 30-4 #### [facility] ([id number]) [address] [place] [address] Creatinine [Mass/Vol] 0.86 mg/dL Normal 0.70-1.20 [facility] Comment on above: Result Comment: METH OD TRACEABLE TO IDMS STANDARD Performed By: #### 6 30-4 #### [facility] ([id number]) [address] [place] [address] GFR/1.73 sq M.predicted among non-blacks MDRD (S/P/Bld) [Vol rate/Area] 89 mL/min/{1.73_m2} Normal >59 [facility] Comment on above: Result Comment: Reported eGFR is based on the CKD-EPI 2020 equation that does not use a race coefficient. Performed By: #### 6 30-4 #### [facility] ([id number]) [address] [place] [address] Glucose [Mass/Vol] 116 mg/dL High 65-[address] [facility] Comment on above: Performed By: #### 6 30-4 #### [facility] ([id number]) [address] [place] [address] Potassium [Moles/Vol] 4.3 mmol/L Normal 3.5-5.0 [facility] Comment on above: Performed By: #### 6 30-4 #### [facility] ([id number]) [address], [address] [place] [address] Sodium [Moles/Vol] 138 mmol/L Normal 134-[address] [facility] Comment on above: Performed By: #### 6 30-4 #### [facility] ([id number]) [address] [place] [address] Urea nitrogen [Mass/Vol] 34 mg/dL High 5-27 [facility] Comment on above: Performed By: #### 6 30-4 #### [facility] ([id number]) [address] [place] [address] CBC AND AUTO DIFFon 06-29-20 24 ABSOLUTE BASOPHIL 0.0 X10E9/L Normal 0.0-0.[address] [facility] Comment on above: Performed By: #### N UM #### [facility] ([id number]) [address] [place] [address] ABSOLUTE NEUTROPHIL 10.1 X10E9/L High 1.5-6.6 [facility] Comment on above: Performed By: #### N UM #### [facility] ([id number]) [address] [place] [address] Basophils/100 WBC (Bld) 0.2 % Normal [facility] Comment on above: Performed By: #### N UM #### [facility] ([id number]) [address] [place] [address] Eosinophils (Bld) [#/Vol] 0.3 10*3/uL Normal 0.0-0.4 [facility] Comment on above: Performed By: #### N UM #### [facility] ([id number]) [address] [place] [address] Eosinophils/100 WBC (Bld) 2.3 % Normal [facility] Comment on above: Performed By: #### N UM #### [facility] ([id number]) [address] [place] [address] Erythrocyte distribution width (RBC) [Ratio] 15.7 % High 11.5-15.0 [facility] Comment on above: Performed By: #### N UM #### [facility] ([id number]) [address] [place] [address] Hematocrit (Bld) [Volume fraction] 37.7 % Low 39-49 [facility] Comment on above: Performed By: #### N UM #### [facility] ([id number]) [address] [place] [address] Hemoglobin (Bld) [Mass/Vol] 12.2 g/dL Low 13.0-17.0 [facility] Comment on above: Performed By: #### N UM #### [facility] ([id number]) [address] [place] [address] Lymphocytes (Bld) [#/Vol] 0.8 10*3/uL Low 1.0-3.5 [facility] Comment on above: Performed By: #### N UM #### [facility] ([id number]) [address] [place] [address] Lymphocytes/100 WBC (Bld) 6.8 % Normal [facility] Comment on above: Performed By: #### N UM #### [facility] ([id number]) [address] [place] [address] MCH (RBC) [Entitic mass] 29.8 pg Normal 27-34 [facility] Comment on above: Performed By: #### N UM #### [facility] ([id number]) [address] [place] [address] MCHC (RBC) [Mass/Vol] 32.3 g/dL Normal 32-36 [facility] Comment on above: Performed By: #### N UM #### [facility] ([id number]) [address] [place] [address] MCV (RBC) [Entitic vol] 92 fL Normal 80-100 [facility] Comment on above: Performed By: #### N UM #### [facility] ([id number]) [address] [place] [address] Monocytes (Bld) [#/Vol] 1.0 10*3/uL High 0-0.9 [facility] Comment on above: Performed By: #### N UM #### [facility] ([id number]) [address] [place] [address] Monocytes/100 WBC (Bld) 8.1 % Normal [facility] Comment on above: Performed By: #### N UM #### [facility] ([id number]) [address] [place] [address] Neutrophils/100 WBC (Bld) 82.6 % Normal [facility] Comment on above: Performed By: #### N UM #### [facility] ([id number]) [address] [place] [address] Platelet mean volume (Bld) [Entitic vol] 7.7 fL Normal 7-12 [facility] Comment on above: Performed By: #### N UM #### [facility] ([id number]) [address] [place] [address] Platelets (Bld) [#/Vol] 288 10*3/uL Normal 150-450 [facility] Comment on above: Performed By: #### N UM #### [facility] ([id number]) [address] [place] [address] RBC COUNT 4.09 X10E12/L Low 4.10-5.70 [facility] [facility] Comment on above: Performed By: #### N UM #### [facility] ([id number]) [address] [place] [address] 66004 WBC (Bld) [#/Vol] 12.2 10*3/uL High 4.0-11.0 [facility] Comment on above: Performed By: #### N UM #### [facility] ([id number]) [address] [place] [address] 73082 Lactate (P joan) [Moles/Vol]o n 06-29-2024 LACTATE W/REFLEX 0.9 mmol/L Normal 0.4-2.0 [facility] Comment on above: Result Comment: Result did not trigger repeat Lactate, re-order if needed. Performed By: #### 6 30-4 #### [facility] ([id number]) [address], [address] [place] [address] PROTIME AND INRon 06-29-2024 INR Coag (PPP) [Relative time] 1.3 {INR} High 0.8-1.1 [facility] Comment on above: Performed By: #### N UM #### [facility] ([id number]) [address] [place] [address] 78870 PT Coag (PPP) [Time] 15.0 s High 9.8-13.2 [facility] Comment on above: Result Comment: NEW REFERENCE RANGE Performed By: #### N UM #### [facility] ([id number]) [address] [place] [address] 64752 aPTT Coag (PPP) [Time]on aPTT Coag (Bld) [Time] 51 s High 26-37 [facility] Comment on above: Result Comment: NEW REFERENCE RANGE Performed By: #### 6 30-4 #### [facility] ([id number]) [address], [address] [place] [address] URINALYSISon 01-27-2024 Bilirubin Ql (U) Negative Normal NEG [facility] BLOOD/HGB Small Abnormal NEG [facility] Color (U) YELLOW Normal YELLOW [facility] Glucose Ql (U) Negative Normal NEG [facility] Ketones Ql (U) Negative Normal NEG [facility] Leukocyte esterase Test strip Ql (U) Large Abnormal NEG [facility] Nitrite Ql (U) Negative Normal NEG [facility] pH (U) 7.5 [pH] Normal 5.0-8.5 [facility] Protein Ql (U) 50 mg/dL Abnormal NEG [facility] R.B.CELLS 13 /hpf High 0-5 [facility] Specific gravity (U) [Rel density] 1.010 Normal 1.003-1.035 [facility] TURBIDITY CLOUDY Abnormal CLEAR [facility] Urobilinogen (U) [Mass/Vol] mg/dL Normal <1.1 [facility] W.B.CELLS >720 High 0-5 [facility] URINE CULTUREon 01-27-2024 Bacteria identified Cx Nom [...] TOBRAMYCIN S <=1 F TRIMETH/SULFAMETHOXAZOL E S <=/19 F [ S = SUSCEPTIBLE R = [...] TOBRAMYCIN S <=1 F TRIMETH/SULFAMETHOXAZOL E S <=11/04 F Susceptible [facility] Comment on above: Performed By: #### 6 30-4 #### [facility] ([id number]) [address] [place] [address], [address] [place] [address] HGB A1C (GLYCO-HGB)on 2023 Glucose [Mass/Vol] 114 mg/dL Normal [facility] HbA1c (Bld) [Mass fraction] 5.6 % Normal 4.4-5.6 [facility] Comment on above: Result Comment: NOTE ADA Guidelines Result HgbA1c Normal : less than 5.7 % Prediabetes : 5.7 % to 6.4 % Diabetes : > 6.4 % Use with caution in patients with abnormal hemoglobin variants as the half-life of red blood cells and in vivo glycation rates are affected. BASIC METABOLIC PANLon 12-02 Anion gap [Moles/Vol] 8 mmol/L Normal 5-15 [facility] Comment on above: Performed By: #### N UM #### [facility] ([id number]) [address] [place] [address] 10092 Calcium [Mass/Vol] 8.8 mg/dL Normal 8.5-10.[address] [facility] Comment on above: Performed By: #### N UM #### [facility] ([id number]) [address] [place] [address] 78985 Chloride [Moles/Vol] 104 mmol/L Normal 98-109 [facility] Comment on above: Performed By: #### N UM #### [facility] ([id number]) [address] [place] [address] 50721 CO2 [Moles/Vol] 27 mmol/L Normal 22-32 [facility] Comment on above: Performed By: #### N UM #### [facility] ([id number]) [address] [place] [address] 12258 Creatinine [Mass/Vol] 1.06 mg/dL Normal 0.70-1.20 [facility] Comment on above: Result Comment: METH OD TRACEABLE TO IDMS STANDARD Performed By: #### N UM #### [facility] ([id number]) [address] [place] [address] 53391 GFR/1.73 sq M.predicted among non-blacks MDRD (S/P/Bld) [Vol rate/Area] 73 mL/min/{1.73_m2} Normal >59 [facility] Comment on above: Result Comment: Reported eGFR is based on the CKD-EPI 2020 equation that does not use a race coefficient. Performed By: #### N UM #### [facility] ([id number]) [address] [place] [address] 23991 Glucose [Mass/Vol] 97 mg/dL Normal 65-[address] [facility] Comment on above: Performed By: #### N UM #### [facility] ([id number]) [address] [place] [address] 00315 Potassium [Moles/Vol] 4.2 mmol/L Normal 3.5-5.0 [facility] Comment on above: Performed By: #### N UM #### [facility] ([id number]) [address] [place] [address] 54079 Sodium [Moles/Vol] 139 mmol/L Normal 134-[address] [facility] Comment on above: Performed By: #### N UM #### [facility] ([id number]) [address] [place] [address] 37401 Urea nitrogen [Mass/Vol] 23 mg/dL Normal 5-27 [facility] Comment on above: Performed By: #### N UM #### [facility] ([id number]) [address] [place] [address] 48546 CBC AND AUTO DIFFon 11-28-19 24 ABSOLUTE BASOPHIL 0.1 X10E9/L Normal 0.0-0.[address] [facility] Comment on above: Performed By: #### N UM #### [facility] ([id number]) [address] [place] [address] 85698 ABSOLUTE NEUTROPHIL 7.2 X10E9/L High 1.5-6.6 [facility] Comment on above: Performed By: #### N UM #### [facility] ([id number]) [address] [place] [address] 54389 Basophils/100 WBC (Bld) 1.0 % Normal [facility] Comment on above: Performed By: #### N UM #### [facility] ([id number]) [address] [place] [address] 93200 Eosinophils (Bld) [#/Vol] 0.3 10*3/uL Normal 0.0-0.4 [facility] Comment on above: Performed By: #### N UM #### [facility] ([id number]) [address] [place] [address] 78138 Eosinophils/100 WBC (Bld) 2.9 % Normal [facility] Comment on above: Performed By: #### N UM #### [facility] ([id number]) [address] [place] [address] 88864 Erythrocyte distribution width (RBC) [Ratio] 16.8 % High 11.5-15.0 [facility] Comment on above: Performed By: #### N UM #### [facility] ([id number]) [address] [place] [address] 74676 Hematocrit (Bld) [Volume fraction] 34.8 % Low 39-49 [facility] Comment on above: Performed By: #### N UM #### [facility] ([id number]) [address] [place] [address] 45907 Hemoglobin (Bld) [Mass/Vol] 11.2 g/dL Low 13.0-17.0 [facility] Comment on above: Performed By: #### N UM #### [facility] ([id number]) [address] [place] [address] 00170 Lymphocytes (Bld) [#/Vol] 1.1 10*3/uL Normal 1.0-3.5 [facility] Comment on above: Performed By: #### N UM #### [facility] ([id number]) [address] [place] [address] 54501 Lymphocytes/100 WBC (Bld) 11.3 % Normal [facility] Comment on above: Performed By: #### N UM #### [facility] ([id number]) [address] [place] [address] 06060 MCH (RBC) [Entitic mass] 29.7 pg Normal 27-34 [facility] Comment on above: Performed By: #### N UM #### [facility] ([id number]) [address] [place] [address] 12822 MCHC (RBC) [Mass/Vol] 32.1 g/dL Normal 32-36 [facility] Comment on above: Performed By: #### N UM #### [facility] ([id number]) [address] [place] [address] 02807 MCV (RBC) [Entitic vol] 92 fL Normal 80-100 [facility] Comment on above: Performed By: #### N UM #### [facility] ([id number]) [address] [place] [address] 41798 Monocytes (Bld) [#/Vol] 0.8 10*3/uL Normal 0-0.9 [facility] Comment on above: Performed By: #### N UM #### [facility] ([id number]) [address] [place] [address] 79428 Monocytes/100 WBC (Bld) 8.7 % Normal [facility] Comment on above: Performed By: #### N UM #### [facility] ([id number]) [address] [place] [address] 72651 Neutrophils/100 WBC (Bld) 76.1 % Normal [facility] Comment on above: Performed By: #### N UM #### [facility] ([id number]) [address] [place] [address] 67170 Platelet mean volume (Bld) [Entitic vol] 8.9 fL Normal 7-12 [facility] Comment on above: Performed By: #### N UM #### [facility] ([id number]) [address] [place] [address] 02856 Platelets (Bld) [#/Vol] 288 10*3/uL Normal 150-450 [facility] Comment on above: Performed By: #### N UM #### [facility] ([id number]) [address] [place] [address] 22643 RBC COUNT 3.76 X10E12/L Low 4.10-5.70 [facility] Comment on above: Performed By: #### N UM #### [facility] ([id number]) [address] [place] [address] 27791 WBC (Bld) [#/Vol] 9.5 10*3/uL Normal 4.0-11.[address] [facility] Comment on above: Performed By: #### N UM #### [facility] ([id number]) [address] [place], [place] [address], [place] [address] BLOOD CULTUREon 11-23-2023 Bacteria identified Aer cx Nom (Bld) CULTURE RESULTS NO GROWTH 5 DAYS Normal [facility] Bacteria identified Aer cx Nom (Bld) CULTURE RESULTS NO GROWTH 5 DAYS Normal [facility] CBC AND AUTO DIFFon 11-23-19 24 ABSOLUTE BASOPHIL 0.1 X10E9/L Normal 0.0-0.2 [facility] Comment on above: Performed By: #### C LUIS M [facility], #### [facility] ([id number]) [address] [place] [address] ABSOLUTE NEUTROPHIL 8.8 X10E9/L High 1.5-6.6 [facility] Comment on above: Performed By: #### C LUIS M [facility], #### [facility] ([id number]) [address] [place] [address] Basophils/100 WBC (Bld) 0.6 % Normal [facility] Comment on above: Performed By: #### Lita ASENCIO [facility], #### [facility] ([id number]) [address] [place] [address] Eosinophils (Bld) [#/Vol] 0.3 10*3/uL Normal 0.0-0.4 [facility] Comment on above: Performed By: #### C LUIS M [facility], #### [facility] ([id number]) [address] [place] [address] Eosinophils/100 WBC (Bld) 2.8 % Normal [facility] Comment on above: Performed By: #### C LUIS M [facility], #### [facility] ([id number]) [address] [place] [address] Erythrocyte distribution width (RBC) [Ratio] 17.6 % High 11.5-15.0 [facility] Comment on above: Performed By: #### C LUIS M [facility], #### [facility] ([id number]) [address] [place] [address] Hematocrit (Bld) [Volume fraction] 38.1 % Low 39-49 [facility] Comment on above: Performed By: #### C LUIS M [facility], #### [facility] ([id number]) [address] [place] [address] Hemoglobin (Bld) [Mass/Vol] 12.2 g/dL Low 13.0-17.0 [facility] Comment on above: Performed By: #### Lita ASENCIO [facility], #### [facility] ([id number]) [address] [facility] [place] [address] Lymphocytes (Bld) [#/Vol] 1.0 10*3/uL Normal 1.0-3.5 [facility] Comment on above: Performed By: #### Lita ASENCIO CMP, #### [facility] ([id number]) [address] [place] [address] Lymphocytes/100 WBC (Bld) 8.9 % Normal [facility] Comment on above: Performed By: #### Lita ASENCIO [facility], #### [facility] ([id number]) [address] [place] [address] MCH (RBC) [Entitic mass] 29.4 pg Normal 27-34 [facility] Comment on above: Performed By: #### Lita ASENCIO [facility], #### [facility] ([id number]) [address] [place] [address] MCHC (RBC) [Mass/Vol] 32.1 g/dL Normal 32-36 [facility] Comment on above: Performed By: #### Lita ASENCIO [facility], #### [facility] ([id number]) [address] [place] [address] MCV (RBC) [Entitic vol] 92 fL Normal 80-100 [facility] Comment on above: Performed By: #### Lita ASENCIO CMP, #### [facility] ([id number]) [address] [place] [address] Monocytes (Bld) [#/Vol] 1.4 10*3/uL High 0-0.9 [facility] Comment on above: Performed By: #### C LUIS M [facility], 22298-4 #### [facility] ([id number]) [address] [place] [address] Monocytes/100 WBC (Bld) 12.0 % Normal [facility] Comment on above: Performed By: #### C LUIS M [facility], 28871-1 #### [facility] ([id number]) [address] [place] [address] Neutrophils/100 WBC (Bld) 75.7 % Normal [facility] Comment on above: Performed By: #### C LUIS M [facility], #### [facility] ([id number]) [address] [place] [address] Platelet mean volume (Bld) [Entitic vol] 7.4 fL Normal 7-12 [facility] Comment on above: Performed By: #### C LUIS M [facility], #### [facility] ([id number]) [address] [place] [address] Platelets (Bld) [#/Vol] 363 10*3/uL Normal 150-450 [facility] Comment on above: Performed By: #### C LUIS M [facility], #### [facility] ([id number]) [address] [place] [address] RBC COUNT 4.16 X10E12/L Normal 4.10-5.70 [facility] Comment on above: Performed By: #### C LUIS M CMP, #### [facility] ([id number]) [address] [place] [address] WBC (Bld) [#/Vol] 11.6 10*3/uL High 4.0-11.0 [facility] Comment on above: Performed By: #### C LUIS M CMP, #### [facility] ([id number]) [address] [place] [address] COMPREHENSIVE METABOLIC PANE Bravo 11-23-2023 Albumin [Mass/Vol] 2.5 g/dL Low 3.2-5.3 [facility] Comment on above: Performed By: #### C BCA, CMP, #### [facility] ([id number]) [address] [place] [address] ALP [Catalytic activity/Vol] 80 U/L Normal 39-130 [facility] Comment on above: Performed By: #### C BCA, CMP, #### [facility] ([id number]) [address] [place] [address] ALT [Catalytic activity/Vol] 12 U/L Normal 0-40 [facility] Comment on above: Performed By: #### C BCA, CMP, #### [facility] ([id number]) [address] [place] [address] Anion gap [Moles/Vol] 7 mmol/L Normal 5-15 [facility] Comment on above: Performed By: #### C BCA, CMP, #### [facility] ([id number]) [address] [place] [address] AST [Catalytic activity/Vol] 24 U/L Normal 0-41 [facility] Comment on above: Performed By: #### C BCA, CMP, #### [facility] ([id number]) [address] [place] [address] Bilirubin [Mass/Vol] 0.5 mg/dL Normal 0.3-1.2 [facility] Comment on above: Performed By: #### C BCA, CMP, #### [facility] ([id number]) [address] [place] [address] Calcium [Mass/Vol] 8.3 mg/dL Low 8.5-10.5 [facility] Comment on above: Performed By: #### C BCA, CMP, #### [facility] ([id number]) [address] [place] [address] Chloride [Moles/Vol] 103 mmol/L Normal 98-109 [facility] Comment on above: Performed By: #### C LUIS M [facility], #### [facility] ([id number]) [address] [place] [address] CO2 [Moles/Vol] 26 mmol/L Normal 22-32 [facility] Comment on above: Performed By: #### C LUIS M [facility], #### [facility] ([id number]) [address] [place] [address] Creatinine [Mass/Vol] 1.24 mg/dL High 0.70-1.20 [facility] Comment on above: Result Comment: METH OD TRACEABLE TO IDMS STANDARD Performed By: #### C LUIS M [facility], #### [facility] ([id number]) [address] [facility] [place] [address] GFR/1.73 sq M.predicted among non-blacks MDRD (S/P/Bld) [Vol rate/Area] 60 mL/min/{1.73_m2} Normal >59 [facility] Comment on above: Result Comment: Reported eGFR is based on the CKD-EPI 2020 equation that does not use a race coefficient. Performed By: #### C LUIS M [facility], #### [facility] ([id number]) [address] [place] [address] Glucose [Mass/Vol] 98 mg/dL Normal 65-99 [facility] Comment on above: Performed By: #### C LUIS M [facility], #### [facility] ([id number]) [address] [place] [address] Potassium [Moles/Vol] 4.2 mmol/L Normal 3.5-5.0 [facility] Comment on above: Performed By: #### C LUIS M [facility], #### [facility] ([id number]) [address] [place] [address] Protein [Mass/Vol] 6.8 g/dL Normal 6.0-8.0 [facility] Comment on above: Performed By: #### C BCA, CMP, 71631-8 #### [facility] ([id number]) [address] [place] [address] Sodium [Moles/Vol] 136 mmol/L Normal 134-146 [facility] Comment on above: Performed By: #### C BCA, CMP, 95823-7 #### [facility] ([id number]) [address] [place] [address] Urea nitrogen [Mass/Vol] 21 mg/dL Normal 5-27 [facility] Comment on above: Performed By: #### C BCA, [facility], 01724-0 #### [facility] ([id number]) [address] [place] [address] MAGNESIUMon 11-23-2023 Magnesium [Mass/Vol] 2.0 mg/dL Normal 1.8-2.6 [facility] Comment on above: Performed By: #### C BCA, CMP, 53191-4 #### [facility] ([id number]) [address] [place] [address] CT ABDOMEN AND PELVIS WO CON Ton [...] Albarran MD on 11/22/2023 3:28 PM Normal [facility] AMMONIAon 11-21-2023 Ammonia (P) [Moles/Vol] 24 umol/L Normal 11-35 [facility] Comment on above: Performed By: #### 6 30-4 #### [facility] ([id number]) [address], [address] [place] [address] BASIC METABOLIC PANLon 11-21 Anion gap [Moles/Vol] 8 mmol/L Normal 5-15 [facility] Comment on above: Performed By: #### 6 30-4 #### [facility] ([id number]) [address], [address] [place] [address] Calcium [Mass/Vol] 8.4 mg/dL Low 8.5-10.[address] [facility] Comment on above: Performed By: #### 6 30-4 #### [facility] ([id number]) [address], [address] [place] [address] Chloride [Moles/Vol] 105 mmol/L Normal 98-109 [facility] Comment on above: Performed By: #### 6 30-4 #### [facility] ([id number]) [address], [address] [place] [address] CO2 [Moles/Vol] 26 mmol/L Normal 22-32 [facility] Comment on above: Performed By: #### 6 30-4 #### [facility] ([id number]) [address], [address] [place] [address] Creatinine [Mass/Vol] 1.44 mg/dL High 0.70-1.20 [facility] Comment on above: Result Comment: METH OD TRACEABLE TO IDMS STANDARD Performed By: #### 6 30-4 #### [facility] ([id number]) [address], [address] [place] [address] GFR/1.73 sq M.predicted among non-blacks MDRD (S/P/Bld) [Vol rate/Area] 50 mL/min/{1.73_m2} Low >59 [facility] Comment on above: Result Comment: Reported eGFR is based on the CKD-EPI 2020 equation that does not use a race coefficient. Performed By: #### 6 30-4 #### [facility] ([id number]) [address], [facility] [address] [place] [address] Glucose [Mass/Vol] 142 mg/dL High 65-[address] [facility] Comment on above: Performed By: #### 6 30-4 #### [facility] ([id number]) [address] [address] [place] [address] Potassium [Moles/Vol] 3.9 mmol/L Normal 3.5-5.0 [facility] Comment on above: Performed By: #### 6 30-4 #### [facility] ([id number]) [address], [address] [place] [address] Sodium [Moles/Vol] 139 mmol/L Normal 134-[address] [facility] Comment on above: Performed By: #### 6 30-4 #### [facility] ([id number]) [address] [place] [address] Urea nitrogen [Mass/Vol] 21 mg/dL Normal 5-27 [facility] Comment on above: Performed By: #### 6 30-4 #### [facility] ([id number]) [address] [address] [place] [address] BLOOD CULTUREon 11-21-2023 Bacteria identified Aer cx Nom (Bld) CULTURE RESULTS STAPHYLOCOCCUS EPIDERMIDIS POSSIBLE COLLECTION CONTAMINATION. STAPHYLOCOCCUS, COAGULASE NEGATIVE NOT S.LUGDUNENSIS POSSIBLE COLLECTION CONTAMINATION. Staphylococcus epidermidis detected by PCR. No resistance genes detected by PCR. SINGLE POSITIVE CULTURE IS OF UNCERTAIN CLINICAL SIGNIFICANCE. SUGGEST CONTINUED MONITORING OF REMAINING BLOOD CULTURES. CONTACT MICROBIOLOGY IF FURTHER INFORMATION IS REQUIRED. Normal [facility] Comment on above: Performed By: #### N UM #### [facility] ([id number]) [address] [place] [id number] Bacteria identified Aer cx Nom (Bld) SPECIMEN NOTES SUBOPTIMAL VOLUME OF BLOOD COLLECTED, RESULTS MAY BE AFFECTED. CULTURE RESULTS NO GROWTH 5 DAYS Normal [facility] Comment on above: Performed By: #### N UM #### [facility] ([id number]) [address] [place] [id number] CBC AND AUTO DIFFon 11-21-19 24 ABSOLUTE BASOPHIL 0.0 X10E9/L Normal 0.0-0.[address] [facility] Comment on above: Performed By: #### C BCA, PINR, 61840-7, BMP, 30367-7, 12550-4, LIVR, 11666-3, 14041-6, THYR, 71489-8 #### [facility] ([id number]) [address] [place] [id number] ABSOLUTE NEUTROPHIL 10.3 X10E9/L High 1.5-6.6 [facility] Comment on above: Performed By: #### C BCA, PINR, 01816-9, BMP, 38284-4, 47027-5, LIVR, 01508-3, 35711-4, THYR, 23510-7 #### [facility] ([id number]) [address] [place] [address] 99427 Basophils/100 WBC (Bld) 0.3 % Normal [facility] Comment on above: Performed By: #### C BCA, PINR, 95989-7, BMP, 63193-2, 01703-0, LIVR, 98914-2, 40402-1, THYR, 85029-1 #### [facility] ([id number]) [address] [place] [address] 53802 Eosinophils (Bld) [#/Vol] 0.3 10*3/uL Normal 0.0-0.4 [facility] Comment on above: Performed By: #### C BCA, PINR, 38083-0, BMP, 68488-0, 20907-1, LIVR, 39279-0, 09774-1, THYR, 02236-2 #### [facility] ([id number]) [address] [place] [address] 53358 Eosinophils/100 WBC (Bld) 2.5 % Normal [facility] Comment on above: Performed By: #### C BCA, PINR, 78209-6, BMP, 08847-2, 91777-1, LIVR, 15737-4, 21130-4, THYR, 84174-3 #### [facility] ([id number]) [address] [place] [address] 68327 Erythrocyte distribution width (RBC) [Ratio] 17.6 % High 11.5-15.0 [facility] Comment on above: Performed By: #### C BCA, PINR, 32857-3, BMP, 36758-4, 59942-7, LIVR, 38657-4, 12588-0, THYR, 69448-0 #### [facility] ([id number]) [address] [place] [address] 06397 Hematocrit (Bld) [Volume fraction] 40.3 % Normal 39-49 [facility] Comment on above: Performed By: #### C BCA, PINR, 30072-1, BMP, 33812-6, 08405-9, LIVR, 93699-6, 23074-4, THYR, 59435-3 #### [facility] ([id number]) [address] [place] [address] 31489 Hemoglobin (Bld) [Mass/Vol] 13.1 g/dL Normal 13.0-17.0 [facility] Comment on above: Performed By: #### C BCA, PINR, 70586-5, BMP, 83243-1, 97302-0, LIVR, 25790-8, 43445-5, THYR, 78097-2 #### [facility] ([id number]) [address] [place] [address] 19532 Lymphocytes (Bld) [#/Vol] 1.0 10*3/uL Normal 1.0-3.5 [facility] Comment on above: Performed By: #### C BCA, PINR, 41841-6, BMP, 14508-3, 34438-0, LIVR, 31270-4, 58335-8, THYR, 01363-8 #### [facility] ([id number]) [address] [place] [address] 90734 Lymphocytes/100 WBC (Bld) 7.5 % Normal [facility] Comment on above: Performed By: #### C BCA, PINR, 25555-6, BMP, 14810-1, 06054-7, LIVR, 96398-0, 64500-7, THYR, 26899-4 #### [facility] ([id number]) [address] [place] [address] 23157 MCH (RBC) [Entitic mass] 29.7 pg Normal 27-34 [facility] Comment on above: Performed By: #### C BCA, PINR, 53183-5, BMP, 52437-7, 01196-7, LIVR, 25957-2, 90196-1, THYR, 11168-1 #### [facility] ([id number]) [address] [place] [address] 93164 MCHC (RBC) [Mass/Vol] 32.5 g/dL Normal 32-36 [facility] Comment on above: Performed By: #### C BCA, PINR, 44856-9, BMP, 71911-7, 07998-7, LIVR, 94215-6, 73758-7, THYR, 11651-9 #### [facility] ([id number]) [address] [place] [address] 57673 MCV (RBC) [Entitic vol] 92 fL Normal 80-100 [facility] Comment on above: Performed By: #### C BCA, PINR, 73018-3, BMP, 66157-9, 51349-3, LIVR, 58202-8, 18962-5, THYR, 10149-7 #### [facility] ([id number]) [address] [place] [address] 82447 Monocytes (Bld) [#/Vol] 1.3 10*3/uL High 0-0.9 [facility] Comment on above: Performed By: #### C BCA, PINR, 13454-2, BMP, 62924-1, 90923-2, LIVR, 94168-6, 92097-7, THYR, 22451-3 #### [facility] ([id number]) [address] [place] [address] 15652 Monocytes/100 WBC (Bld) 10.2 % Normal [facility] Comment on above: Performed By: #### C BCA, PINR, 61654-3, BMP, 82973-6, 01662-5, LIVR, 47916-5, 73482-3, THYR, 67468-1 #### [facility] ([id number]) [address] [place] [address] 34222 Neutrophils/100 WBC (Bld) 79.5 % Normal [facility] Comment on above: Performed By: #### C BCA, PINR, 23498-6, BMP, 16538-3, 00113-8, LIVR, 76889-8, 52686-9, THYR, 36747-4 #### [facility] ([id number]) [address] [place] [address] 89784 Platelet mean volume (Bld) [Entitic vol] 7.4 fL Normal 7-12 [facility] Comment on above: Performed By: #### C BCA, PINR, 43239-7, BMP, 68866-1, 98397-2, LIVR, 30811-3, 86604-4, THYR, 61058-8 #### [facility] ([id number]) [address] [place] [address] 83990 Platelets (Bld) [#/Vol] 419 10*3/uL Normal 150-450 [facility] Comment on above: Performed By: #### C BCA, PINR, 03920-8, BMP, 32264-1, 50204-5, LIVR, 76885-8, 62579-1, THYR, 38208-8 #### [facility] ([id number]) [address] [place] [address] 73287 RBC COUNT 4.40 X10E12/L Normal 4.10-5.70 [facility] Comment on above: Performed By: #### C BCA, PINR, 12318-8, BMP, 54169-8, 03515-8, LIVR, 77635-4, 37457-0, THYR, 22593-3 #### [facility] ([id number]) [address] [place] [address] 77548 WBC (Bld) [#/Vol] 12.8 10*3/uL High 4.0-11.0 [facility] Comment on above: Performed By: #### C BCA, PINR, 87871-7, BMP, 04229-7, 92020-7, LIVR, 35076-7, 22335-7, THYR, 68744-5 #### [facility] ([id number]) [address] [place] [address] 03957 LIVER PANELon 11-21-2023 Albumin [Mass/Vol] 2.8 g/dL Low 3.2-5.[address] [facility] Comment on above: Performed By: #### 6 30-4 #### [facility] ([id number]) [address], [address] [place] [address] ALP [Catalytic activity/Vol] 99 U/L Normal 39-130 [facility] Comment on above: Performed By: #### 6 30-4 #### [facility] ([id number]) [address], [address] [place] [address] ALT [Catalytic activity/Vol] 13 U/L Normal 0-40 [facility] Comment on above: Performed By: #### 6 30-4 #### [facility] ([id number]) [address], [address] [place] [address] AST [Catalytic activity/Vol] 31 U/L Normal 0-41 [facility] Comment on above: Performed By: #### 6 30-4 #### [facility] ([id number]) [address], [address] [place] [address] Bilirubin [Mass/Vol] 0.3 mg/dL Normal 0.3-1.2 [facility] Comment on above: Performed By: #### 6 30-4 #### [facility] ([id number]) [address], [address] [place] [address] Bilirubin.direct [Mass/Vol] 0.1 mg/dL Normal 0.0-0.4 [facility] Comment on above: Performed By: #### 6 30-4 #### [facility] ([id number]) [address], [address] [place] [address] Protein [Mass/Vol] 7.4 g/dL Normal 6.0-8.[address] [facility] Comment on above: Performed By: #### 6 30-4 #### [facility] ([id number]) [address], [address] [place] [address] Lactate (P joan) [Moles/Vol]o n 11-21-2023 Lactate [Moles/Vol] 1.6 mmol/L Normal 0.4-2.0 [facility] Comment on above: Performed By: #### N UM #### [facility] ([id number]) [address] [place] [address], [place] [address] LACTATE W/REFLEX 2.5 mmol/L High 0.4-2.0 [facility] Comment on above: Performed By: #### 6 30-4 #### [facility] ([id number]) [address], [address] [place] [address] MAGNESIUMon 11-21-2023 Magnesium [Mass/Vol] 2.1 mg/dL Normal 1.8-2.6 [facility] Comment on above: Performed By: #### 6 30-4 #### [facility] ([id number]) [address], [address] [place] [address] Natriuretic peptide B [Mass/ Vol]on 11-21-2023 Natriuretic peptide B (Bld) [Mass/Vol] 136 pg/mL High <100.0 [facility] Comment on above: Performed By: #### 6 30-4 #### [facility] ([id number]) [address], [address] [place] [address] PROTIME AND INRon 11-21-2023 INR Coag (PPP) [Relative time] 1.3 {INR} High 0.8-1.1 [facility] Comment on above: Performed By: #### C BCA, PINR, 94588-0, BMP, 24092-1, 14350-6, LIVR, 45977-1, 13715-7, THYR, 43601-4 #### [facility] ([id number]) [address] [place] [address], [place] [address] PT Coag (PPP) [Time] 14.8 s High 9.8-13.2 [facility] Comment on above: Result Comment: NEW REFERENCE RANGE Performed By: #### C BCA, PINR, 80437-4, BMP, 49003-2, 79366-1, LIVR, 90707-2, 22941-9, THYR, 48017-4 #### [facility] ([id number]) [address] [facility], [place] [address] SARS/FLU A+B/RSV by NAAT/Mol ecularon 11-21-2023 SARS/FLU [...] operators who are performing tests using either PrepChamps DX or 3VR systems and is limited to laboratories that [...] repeat. Fact Sheet for Healthcare Providers: https://www.fda.gov/med ia/545433/download Fact Sheet for Patients: https://www.fda.gov/med ia/477950/download Normal [facility] Comment on above: Performed By: #### N UM #### [facility] ([id number]) [address] [place] [address], [place] [address] THYROID PROFILEon 11-21-2023 Free T4 [Mass/Vol] 1.03 ng/dL Normal 0.61-1.[address] [facility] Comment on above: Performed By: #### 6 30-4 #### [facility] ([id number]) [address] [place] [address] [address] [place] [address] TSH 2.80 uIU/mL Normal 0.49-4.67 [facility] Comment on above: Performed By: #### 6 30-4 #### [facility] ([id number]) [address] [place] [address], [facility] [address] [place] [address] TROPONIN Ion 11-21-2023 Troponin I.cardiac [Mass/Vol] 0.02 ng/mL Normal 0.00-0.04 [facility] Comment on above: Performed By: #### 6 30-4 #### [facility] ([id number]) [address] [place] [address] URINE CULTUREon 11-21-2023 Bacteria identified Cx Nom [...] TOBRAMYCIN S <=1 F TRIMETH/SULFAMETHOXAZOL E S <=11/04 F Susceptible [facility] Comment on above: Performed By: #### N UM #### [facility] ([id number]) [address] [place] [address], [place] [address] URN MACROSCOPIC NURon 2023 BILIRUBIN MIKE Negative Normal NEG [facility] Comment on above: Performed By: #### 6 30-4 #### [facility] ([id number]) [address], [address] [place] [address] BLOOD/HGB MIKE Large Abnormal NEG [facility] Comment on above: Performed By: #### 6 30-4 #### [facility] ([id number]) [address], [address] [place] [address] GLUCOSE MIKE Negative Normal NEG [facility] Comment on above: Performed By: #### 6 30-4 #### [facility] ([id number]) [address], [address] [place] [address] KETONES MIKE Negative Normal NEG [facility] Comment on above: Performed By: #### 6 30-4 #### [facility] ([id number]) [address], [address] [place] [address] LEUKOCYTE ESTERASE MIKE Large Abnormal NEG [facility] Comment on above: Performed By: #### 6 30-4 #### [facility] ([id number]) [address], [address] [place] [address] NITRITE MIKE Negative Normal NEG [facility] Comment on above: Performed By: #### 6 30-4 #### [facility] ([id number]) [address], [address] [place] [address] PH MIKE 8.5 Normal 5.0-8.5 [facility] Comment on above: Performed By: #### 6 30-4 #### [facility] ([id number]) [address], [address] [place] [address] PROTEIN MIKE >=300 Abnormal NEG [facility] Comment on above: Performed By: #### 6 30-4 #### [facility] ([id number]) [address], [address] [place] [address] SPECIFIC GRAVITY MIKE 1.020 Normal 1.003-1.035 [facility] Comment on above: Performed By: #### 6 30-4 #### [facility] ([id number]) [address], [address] [place] [address] UROBILINOGEN MIKE 0.2 eu/dL Normal <1.1 [facility] Comment on above: Performed By: #### 6 30-4 #### [facility] ([id number]) [address], [address] [place] [address] XR CHEST 1 VWon 11-21-2023 XR CHEST [...] Cheung MD on 11/21/2023 6:10 PM Normal [facility] aPTT Coag (PPP) [Time]on aPTT Coag (Bld) [Time] 43 s High 26-37 [facility] Comment on above: Result Comment: NEW REFERENCE RANGE Performed By: #### C BCA, PINR, 85963-6, BMP, 99239-3, 41667-0, LIVR, 54025-3, 05484-1, THYR, 89109-9 #### [facility] ([id number]) [address] [place] [address], [place] [address] BASIC METABOLIC PANLon 11-17 Anion gap [Moles/Vol] 11 mmol/L Normal 5-15 [facility] Comment on above: Performed By: #### ASHELY ALARCON, #### [facility] ([id number]) [address] [place] [address] 49256 Calcium [Mass/Vol] 8.1 mg/dL Low 8.5-10.[address] [facility] Comment on above: Performed By: #### ASHELY ALARCON, #### [facility] ([id number]) [address] [place] [address] 97686 Chloride [Moles/Vol] 108 mmol/L Normal 98-109 [facility] Comment on above: Performed By: #### ASHELY ALARCON, #### [facility] ([id number]) [address] [place] [address] 32644 CO2 [Moles/Vol] 23 mmol/L Normal 22-32 [facility] Comment on above: Performed By: #### ASHELY ALARCON, #### [facility] ([id number]) [address] [place] [address] 45335 Creatinine [Mass/Vol] 1.36 mg/dL High 0.70-1.20 [facility] Comment on above: Result Comment: METH OD TRACEABLE TO IDMS STANDARD Performed By: #### ASHELY ALARCON, #### [facility] ([id number]) [address] [place] [address] GFR/1.73 sq M.predicted among non-blacks MDRD (S/P/Bld) [Vol rate/Area] 54 mL/min/{1.73_m2} Low >59 [facility] Comment on above: Result Comment: Reported eGFR is based on the CKD-EPI 2020 equation that does not use a race coefficient. Performed By: #### ASHELY ALARCON, #### [facility] ([id number]) [address] [place] [address] 65777 Glucose [Mass/Vol] 84 mg/dL Normal 65-[address] [facility] Comment on above: Performed By: #### Lita MASSEY [facility], #### [facility] ([id number]) [address] [place] [address] 28929 Potassium [Moles/Vol] 4.1 mmol/L Normal 3.5-5.0 [facility] Comment on above: Performed By: #### Lita MASSEY [facility], #### [facility] ([id number]) [address] [place] [address] 09175 Sodium [Moles/Vol] 142 mmol/L Normal 134-[address] [facility] Comment on above: Performed By: #### Lita MASSEY [facility], #### [facility] ([id number]) [address] [place] [address] 97365 Urea nitrogen [Mass/Vol] 33 mg/dL High 5-27 [facility] Comment on above: Performed By: #### Lita MASSEY [facility], #### [facility] ([id number]) [address] [place] [address] 27966 COMPLETE BLOOD COUNTon 11-17 Erythrocyte distribution width (RBC) [Ratio] 17.3 % High 11.5-15.0 [facility] Comment on above: Performed By: #### Lita MASSEY [facility], #### [facility] ([id number]) [address] [place] [address] 40175 Hematocrit (Bld) [Volume fraction] 36.4 % Low 39-49 [facility] Comment on above: Performed By: #### ASHELY ALARCON, #### [facility] ([id number]) [address] [place] [address] 76598 Hemoglobin (Bld) [Mass/Vol] 11.8 g/dL Low 13.0-17.0 [facility] Comment on above: Performed By: #### C ASHELY MASSEY, #### [facility] ([id number]) [address] [place] [address] 10406 MCH (RBC) [Entitic mass] 29.4 pg Normal 27-34 [facility] Comment on above: Performed By: #### C ASHELY MASSEY, #### [facility] ([id number]) [address] [place] [address] 65236 MCHC (RBC) [Mass/Vol] 32.3 g/dL Normal 32-36 [facility] Comment on above: Performed By: #### C ASHELY MASSEY, #### [facility] ([id number]) [address] [place] [address] 07791 MCV (RBC) [Entitic vol] 91 fL Normal 80-100 [facility] Comment on above: Performed By: #### ASHELY ALARCON, #### [facility] ([id number]) [address] [place] [address] 81440 Platelet mean volume (Bld) [Entitic vol] 8.6 fL Normal 7-12 [facility] Comment on above: Performed By: #### ASHELY ALARCON, #### [facility] ([id number]) [address] [place] [address] 51178 Platelets (Bld) [#/Vol] 287 10*3/uL Normal 150-450 [facility] Comment on above: Performed By: #### ASHELY ALARCON, #### [facility] ([id number]) [address] [place] [address] 34913 RBC COUNT 4.00 X10E12/L Low 4.10-5.70 [facility] Comment on above: Performed By: #### C ASHELY MASSEY, 90716-6 #### [facility] ([id number]) [address] [place] [address] 92082 WBC (Bld) [#/Vol] 9.1 10*3/uL Normal 4.0-11.[address] [facility] Comment on above: Performed By: #### C BRYSON [facility], 53052-7 #### [facility] ([id number]) [address] [place] [address] 16914 MAGNESIUMon 11-17-2023 Magnesium [Mass/Vol] 2.0 mg/dL Normal 1.8-2.6 [facility] Comment on above: Performed By: #### C BRYSON [facility], 51351-4 #### [facility] ([id number]) [address] [place] [address] 12220 URINE CULTUREon 10-30-2023 Bacteria identified Cx Nom [...] F TRIMETH/SULFAMETHOXAZOL E S <=1/19 F Susceptible [facility] Comment on above: Performed By: #### 6 30-4 #### [facility] ([id number]) [address] [place] [address], [address] [place] [address] URN MACROSCOPIC NURon 2023 BILIRUBIN MIKE Negative Normal NEG [facility] Comment on above: Performed By: #### N UM #### [facility] ([id number]) [address] [place] [address] 30896 BLOOD/HGB MIKE Large Abnormal NEG [facility] Comment on above: Performed By: #### N UM #### [facility] ([id number]) [address] [place] [address] [place] [address] GLUCOSE MIKE Negative Normal NEG [facility] Comment on above: Performed By: #### N UM #### [facility] ([id number]) [address] [place] [address] [place] [address] KETONES MIKE Negative Normal NEG [facility] Comment on above: Performed By: #### N UM #### [facility] ([id number]) [address] [place] [address] [place] [address] LEUKOCYTE ESTERASE MIKE Large Abnormal NEG [facility] Comment on above: Performed By: #### N UM #### [facility] ([id number]) [address] [place] [address] 800[address] NITRITE MIKE Negative Normal NEG [facility] Comment on above: Performed By: #### N UM #### [facility] ([id number]) [address] [place] [address] [place] [address] PH MIKE 6.0 Normal 5.0-8.5 [facility] Comment on above: Performed By: #### N UM #### [facility] ([id number]) [address] [place] [address] [place] [address] PROTEIN MIKE 30 mg/dL Abnormal NEG [facility] Comment on above: Performed By: #### N UM #### [facility] ([id number]) [address] [place] [address] [place] [address] SPECIFIC GRAVITY MIKE 1.015 Normal 1.003-1.035 [facility] Comment on above: Performed By: #### N UM #### [facility] ([id number]) [address] [place] [address] [place] [address] UROBILINOGEN MIKE 0.2 eu/dL Normal <1.1 [facility] Comment on above: Performed By: #### N UM #### [facility] ([id number]) [address] [place] [address], [place] [address] URINALYSISon 10-12-2023 Bilirubin Ql (U) Negative Normal NEG [facility] Comment on above: Performed By: #### U A #### [facility] ([id number]) [address] [place] [address] [place] [address] BLOOD/HGB Trace Abnormal NEG [facility] Comment on above: Performed By: #### U A #### [facility] ([id number]) [address] [place] [address] 90261 Color (U) YELLOW Normal YELLOW [facility] Comment on above: Performed By: #### U A #### [facility] ([id number]) [address] [place] [address] Glucose Ql (U) Negative Normal NEG [facility] Comment on above: Performed By: #### U A #### [facility] ([id number]) [address] [place] [address] [place] [address] Ketones Ql (U) Negative Normal NEG [facility] Comment on above: Performed By: #### U A #### [facility] ([id number]) [address] [place] [address] [place] [address] Leukocyte esterase Test strip Ql (U) SMALL Abnormal NEG [facility] Comment on above: Performed By: #### U A #### [facility] ([id number]) [address] [place] [address] [place] [address] Nitrite Ql (U) Negative Normal NEG [facility] Comment on above: Performed By: #### U A #### [facility] ([id number]) [address] [place] [address] [place] [address] pH (U) 6.0 [pH] Normal 5.0-8.5 [facility] Comment on above: Performed By: #### U A #### [facility] ([id number]) [address] [place] [address] Protein Ql (U) Negative Normal NEG [facility] Comment on above: Performed By: #### U A #### [facility] ([id number]) [address] [place] [address] R.B.CELLS 2 /hpf Normal 0-5 [facility] Comment on above: Performed By: #### U A #### [facility] ([id number]) [address] [place] [address] Specific gravity (U) [Rel density] 1.020 Normal 1.003-1.035 [facility] Comment on above: Performed By: #### U A #### [facility] ([id number]) [address] [place] [address] SQUAMOUS EPITHELIUM 3 /hpf Normal 0-5 [facility] Comment on above: Performed By: #### U A #### [facility] ([id number]) [address] [place] [address] TURBIDITY CLEAR Normal CLEAR [facility] Comment on above: Performed By: #### U A #### [facility] ([id number]) [address] [place] [address] Urobilinogen Qn (U) 0.2 {Ryland'U}/dL Normal <1.1 [facility] Comment on above: Performed By: #### U A #### [facility] ([id number]) [address] [place] [address] W.B.CELLS 15 /hpf High 0-5 [facility] Comment on above: Performed By: #### U A #### [facility] ([id number]) [address] [place] [address], [place] [address] URINE CULTUREon 10-12-2023 Bacteria identified Cx Nom [...] TOBRAMYCIN S <=1 F TRIMETH/SULFAMETHOXAZOL E S <=/19 F Susceptible [facility] Comment on above: Performed By: #### 6 30-4 #### [facility] ([id number]) [address] [place] [address], [address] [place] [address] Rad - Other Radiology Report on 12-29-2022 Rad - Other Radiology Report [id number]#1.00 [facility] Outside [facility]son 11-10-2022 Outside Records [id number]#1.00O [facility] Outside [facility] 10-22-2022 Outside Records [id number]#1.00O [facility] 10-12-2022 Outside Records [id number]#1.00 [facility] 08-24-2022 Outside Records [id number]#1.00 [facility] 08-03-2022 Outside Records [id number]#1.[facility] Outside Records [id number]#1.00O TGTIFF Normal [facility] Outside Records [id number]#1.00O TGTIFF Normal [facility] Outside [facility] 08-02-2022 Outside Records [id number]#1.[facility] Outside [facility] 04-14-2022 Outside Records [id number]#1.00 [facility] 04-05-2022 Outside Records [id number]#1.00O [facility] Outside [facility]son 03-19-2022 Outside Records [id number]#1.00O [facility] Normal [facility] Outside [facility]son 03-09-2022 Outside Records [id number]#1.00 [facility] [id number]#1.00 [facility] [id number]#1.00 [facility] 03-08-2022 Outside Records [id number]#1.00O [facility] Outside [facility] 03-05-2022 Outside Records [id number]#1.00O [facility] COVID-19 PCRon 09-12-2020 SARS-CoV-2, CARIE Not Detected Normal Not Detected [facility] Comment on above: Result Comment: This nucleic acid amplification test was developed and its performance characteristics determined by [employer]. Nucleic acid amplification tests include PCR and [...] assay. Performed By: #### C VDPCR #### [facility] [address] [place] [address] Kenji Blanco COVID-19 PCRon 09-05-2020 SARS-CoV-2, CARIE Not Detected Normal Not Detected [facility] Comment on above: Result Comment: This nucleic acid amplification test was developed and its performance characteristics determined by [employer]. Nucleic acid amplification tests include PCR and [...] assay. Performed By: #### C VDPCR #### [facility] [address] [place] [address] Kenji Blanco Vital Signs Date Time Vital Sign Value Performing Clinician Reta espianl 10-13-2023 09:57-0500 Body height 165.1 cm Katherine Mohr MD Work Phone: [facility] 10-13-2023 09:57-0500 Body mass index (BMI) [Ratio] 37.44 kg/m2 Katherine Mohr MD Work Phone: [facility] 10-13-2023 09:57-0500 Body weight 102.06 kg Katherine Mohr MD Work Phone: [facility] 10-13-2023 09:57-0500 Diastolic blood pressure 60 mm[Hg] Katherine Mohr MD Work Phone: [facility] 10-13-2023 09:57-0500 Heart rate 96 /min Katherine Mohr MD Work Phone: [facility] 10-13-2023 09:57-0500 SaO2% (BldA) [Mass fraction] 91 % Katherine Mohr MD Work Phone: [facility] 10-13-2023 09:57-0500 Systolic blood pressure 90 mm[Hg] Katherine Mohr MD Work Phone: [facility] Encounters Encounter Date Encounter Type Care Provider Facility Start: 07-10-2024 End: 07-10-2024 ambulatory STORM Anaya [facility] Start: 07-07-2024 End: 07-07-2024 Emergency department patient visit [facility] Start: 07-04-2024 End: 07-06-2024 ambulatory [facility] Start: 07-02-2024 End: 07-02-2024 Emergency department patient visit [facility] Start: 06-29-2024 End: 06-29-2024 Emergency department patient visit LOBO B[facility] Start: 01-27-2024 End: 01-27-2024 ambulatory [facility] Start: 12-26-2023 End: 12-26-[address] [facility] Start: 12-02-2023 End: 12-02-[address] [facility] Start: 12-01-2023 End: 12-01-[address] [facility] Start: 11-28-2023 End: 11-28-[address] [facility] Start: 11-23-2023 End: 11-23-2023 ambulatory [facility] Start: 11-22-2023 End: 11-24-2023 [facility]: 11-22-2023 End: 11-23-2023 Evaluation and management of inpatient YOBANY Deluca [facility] Start: 11-21-2023 End: 11-23-2023 Emergency department patient visit [facility] Start: 11-21-2023 End: 11-23-2023 Emergency department patient visit [facility] Start: 11-17-2023 End: 11-17-[address] [facility] Start: 11-02-2023 End: 11-02-2023 ambulatory ANTONIO FOX [facility] Start: 10-30-2023 End: 10-30-2023 Emergency department patient visit LOBO Boles [facility] Start: 10-13-2023 End: 10-13-2023 Office outpatient visit 15 minutes Katherine Mohr MD Work Phone: [facility] Comment on above: Paroxysmal atrial fi brillation (CMS-HCC) (Primary Dx); Cardiomyopathy; Chronic systolic CHF (congestive heart failure) (CMS-HCC); Aneurysm of ascending aorta without rupture ([facility]); Bradycardia Start: 10-13-2023 End: 10-13-2023 ambulatory KATHERINE MOHR [facility] Start: 10-12-2023 End: 10-12-2023 ambulatory CHIKI EVERETT [facility] Start: 09-09-2020 End: 09-10-2020 Patient encounter procedure [...] Td Vaccines (2 - Td or Tdap) [facility] Start: 10-13-2024 Adult BMI Screening Adult BMI Screening [facility] Start: 10-13-2024 Tobacco Screening Tobacco Screening [facility] Start: 08-12-2024 Depression Screening Depression Screening [facility] Start: 06-17-2023 COVID-19 Vaccine ( season) COVID-19 Vaccine ( season) [facility] Start: 06-17-2023 Influenza vaccination Influenza Vaccine [facility] Start: 2012 Fall Risk Screening Fall Risk Screening [facility] Start: 1997 Administration of varicella zoster vaccine Zoster (Shingles) Vaccine (1 of 2) [facility] Start: 1965 Adult BMI Follow Up Plan Adult BMI Follow Up Plan [facility] Start: 1945 Medicare Annual Wellness Visit Medicare Annual Wellness Visit [facility] Immunizations Immunization Date Immunization Notes Care Provider Fa cility 07-24-2021 Influenza, High-dose , Quadrivalent Katherine Mohr MD Work Phone: [facility] 07-24-2021 influenza virus vacc ine, unspecified formulation Katherine Mohr MD Work Phone: [facility] 09-01-2020 influenza, high dose seasonal, preservative-free Katherine Mohr MD Work Phone: [facility] 07-27-2020 tetanus toxoid, redu reyes diphtheria toxoid, and acellular pertussis vaccine, adsorbed Katherine Mohr MD Work Phone: [facility] 12-15-2017 influenza, injectabl e, quadrivalent, preservative free Katherine Mohr MD Work Phone: [facility] 10-21-2015 influenza virus vacc ine, unspecified formulation Katherine Mohr MD Work Phone: [facility] 10-21-2015 pneumococcal polysaccharide vaccine, 23 valent Katherine Mohr MD Work Phone: [facility] 09-06-2014 influenza virus vacc ine, unspecified formulation Katherine Mohr MD Work Phone: [facility] 10-25-2011 influenza virus vacc ine, unspecified formulation Katherine Mohr MD Work Phone: [facility] 12-04-2009 novel influenza-H1N1 -09, preservative-free, injectable Katherine Mohr MD Work Phone: [facility] Payers Date Payer Category Payer Medicaid MEDICAID [facility] M EDICAID [id number] 2021-Present [phone] [address] [place] [address] [id number] 1990 Medicare MEDICARE MEDICAR E PART A & B [id number] 1990-Present [phone] [address] [place] [address] [id number] 1959 Medicaid [id number] 1959 Medicare [id number] 1947 Unknown [id number] 2.16.840.1.522985.3.579.2.593 1947 Unknown [id number] 2.16.840.1.067022.3.579.2.593 1947 Unknown [id number] 2.16.840.1.748058.3.579.2.128 1947 Unknown [id number] 2.16.840.1.216261.3.579.2.128 1947 Unknown [id number] 2.16.840.1.695570.3.579.2.1285 1947 Unknown [id number] 2.16.840.1.965241.3.579.2.128 1947 Unknown [id number] 2.16.840.1.541821.3.579.2.1285 1947 Unknown [id number] 2.16.840.1.485601.3.579.2.128 1947 Unknown [id number] 2.16.840.1.026316.3.579.2.1285 1947 Unknown [id number] 2.16.840.1.955986.3.579.2.1285 1947 Unknown [id number] 2.16.840.1.970406.3.579.2.1285 1947 Unknown [id number] 2.16.840.1.102926.3.579.2.1285 1947 Unknown [id number] 2.16.840.1.630622.3.579.2.1285 1947 Unknown [id number] 2.16.840.1.837400.3.579.2.128 1947 Unknown [id number] 2.16.840.1.885317.3.579.2.1285 1947 Unknown [id number] 2.16.840.1.271834.3.579.2.1285 1947 Unknown [id number] 2.16.840.1.626327.3.579.2.1285 1947 Unknown [id number] 2.16.840.1.458411.3.579.2.1285 1947 Unknown [id number] 2.16.840.1.051092.3.579.2.1285 1947 Unknown [id number] 2.16.840.1.772138.3.579.2.1285 1947 Unknown [id number] 2.16.840.1.942173.3.579.2.1285 1947 Unknown [id number] 2.840.1.747343.3.579.2.1285 1947 Unknown [id number] 2.840.1.773412.3.579.2.1286 Social History Date Type Detail Facility Start: 09-15-2022 Tobacco smoking stat [facility] Ex-smoker [facility] History of tobacco use Current smoker [facility] Start: 09-15-2022 Tobacco use and exposure Smoke less tobacco non-user [facility] Start: 10-13-2023 Alcohol intake Current drinke r of alcohol (finding) [facility] Start: 10-12-2022 End: 08-11-2023 History of Social function [facility] Start: 10-12-2022 End: 08-11-2023 Social connection and isolation panel [facility] Do you belong to any clubs or organizations such as hindu groups, unions, fraternal or athletic groups, or school groups? No [facility] Are you now , , , , never or living with a partner? [facility] How often to you hav e a drink containing alcohol? 2-4 times a month [facility] How many standard dr inks containing alcohol do you have on a typical day? 1 or 2 [facility] How often do you hav e 6 or more drinks on 1 occasion? Never [facility] How hard is it for y ou to pay for the very basics like food, housing, medical care, and heating Not hard at all [facility] Do you feel stress - tense, restless, nervous, or anxious, or unable to sleep at night because your mind is troubled all the time - these days [OSQ] Not at all [employer] [facility] Start: 09-15-2022 Tobacco Comment quit 15 years ago [facility] Start: 12-30-2021 Alcohol Comment [facility] Start: 1945 Sex Assigned At Not on file P [facility] Procedure Code Equipment Code Equipment Origin al Text Equipment Identifier Dates Plate Bn 54mm St d 6 Hle/Hd 3 Hle/Shft 2 Clmn Va Lcp Cmbn Rds Rpl [id number] - [id number] - [id number] Start: 09-05-2021 Screw Bn 24mm 2. [address] Slf Rtn Strdr Lp Hd Aguila Ss T8 Ns - [id number] - [id number] Start: 09-05-2021 Goals Date Patient Goal Desired Activity /State Personal health goal Comment on above: Formatting of this n ote might be different from the original. Evaluation of progress towards goal: Patient's guardian plans for patient to return to [facility] History of Present illness Narrative 10-13-2023 [...] non-ST elevation myocardial infarction (NSTEMI) Atrial flutter ([facility]) Chronic systolic CHF (congestive heart failure) ([facility]) Acute pulmonary embolism ([facility]) Urinary retention Ascending aortic aneurysm ([facility]) Colonic obstruction ([facility]) Acute respiratory failure with hypoxia ([facility]) Gastrointestinal hemorrhage associated with peptic ulcer Oropharyngeal dysphagia Volume overload Surgical wound, non healing Obesity (BMI 30-39.9) Pneumonia Paroxysmal atrial fibrillation ([facility]) Insomnia Schizophrenia ([facility]) Weakness Hypomagnesemia Dysphagia Elevated liver enzymes Cardiomyopathy ([facility]) Skin excoriation Acute on chronic respiratory failure with hypoxia ([facility] COPD exacerbation ([facility]) Unresponsiveness No Known Allergies Current Outpatient [...] History of sigmoidectomy with ostomy PT AT [place] AND INSTRUCTED TO PLEASE MAKE SURE PT [...] seen by my partner while hospitalized at [facility] August for management of paroxysmal atrial fibrillation/bradycardia [...] Acute cystitis with hematuria Acute kidney failure ([facility]) Acute respiratory failure, unsp w hypoxia or hypercapnia ([facility]) Anemia Anxiety Asthma Atrial fibrillation ([facility]) 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 ([facility]) BPH (benign prostatic hyperplasia) Cardiomyopathy Cellulitis Closed fracture of lower end of right radius with routine healing Cognitive communication deficit Colonic obstruction ([facility]) 02/07/2021 Constipation Contracture of muscle COPD (chronic obstructive pulmonary disease) ([facility] COVID-19 COVID-19 02/07/2021 Dehydration Dental disease Displaced fracture of right ulna styloid process, subsequent encounter for closed fracture with routine healing Dysphagia Esophagitis GERD (gastroesophageal reflux disease) Gross hematuria Herpesviral infection Hypernatremia Hyperosmolality Hypertension Hypokalemia Impetigo Infrapatellar bursitis Intellectual disability Intestinal obstruction ([facility]) Lobular pneumonia Lymph edema Magnesium deficiency Major depressive disorder, recurrent ([facility]) Muscle weakness (generalized) Neuromuscular dysfunction of bladder OA (osteoarthritis) Obesity OCD (obsessive compulsive disorder) Lourdes syndrome Oropharyngeal dysphagia Other abnormalities of gait and mobility Other fracture of upper and lower end of left fibula, sequela Other specified abnormalities of plasma proteins Peptic ulcer Recurrent hematuria Retention of urine Retrograde ejaculation Schizophrenia ([facility]) Sleep apnea Urinary frequency UTI (urinary tract infection) Venous ulcer of leg ([facility]) No data recorded No data recorded No data recorded Past Surgical History: Procedure Laterality Date CATARACT EXTRACTION CLOSED REDUCTION PERCUTANEOUS PINNING Left 08/20/2020 Performed by Ethan Leon MD at [facility] COLON SURGERY COLONOSCOPY COLONOSCOPY Left 02/09/2021 Performed by Yolanda Garcia MD at [facility] COLONOSCOPY with placement of decompression tube Left 02/17/2021 Performed by Lizette Seo MD at [facility] CYSTOSCOPY N/A 07/17/2019 Performed by Tim Patterson MD at [facility] EGD/PEG TUBE PLACEMENT N/A 09/29/2020 Performed by Mrak Irene MD at [facility] FINGER SURGERY Right INCISION AND DRAINAGE Left 08/20/2020 Performed by Ethan Leon MD at [facility] LAPAROTOMY EXPLORATORY / SIGMOID COLECTOMY / END COLOSTOMY N/A 02/18/2021 Performed by Ten Multani MD at [facility] OPEN REDUCTION INTERNAL FIXATION RADIUS DISTAL Right 09/05/2021 Performed by William Leon DO at [facility] REMOVAL HARDWARE FOOT/TOE Left 02/02/2021 Performed by Ethan Leon MD at [facility] No family history on file. Social [...] min Stress: No Stress Concern Present (10/12/2022) [employer] [place] [employer] - Occupational Stress Questionnaire Feeling of Stress : Not at all Social Connections: Moderately Integrated (10/12/2022) Social Connection and Isolation Panel [NHANES] Frequency of Communication with Friends and Family: More than three times a week Frequency of Social Gatherings with Friends and Family: More than three times a week Attends Restoration Services: More than 4 times per year [...] Referring Physician: Lobo Machuca DO [address] [facility] [place] [id number] documented in this encounter [employer] Evaluation note Note Date & Type Note Facility Evaluation note Diagnosis Paroxysmal atrial fibrillation (CMS-HCC)- Primary Atrial fibrillation Cardiomyopathy (CMS-HCC) Chronic systolic CHF (congestive heart failure) (CMS-HCC) Aneurysm of ascending aorta without rupture (CMS-HCC) Bradycardia Other specified cardiac dysrhythmias documented in this encounter [employer] [facility] Instructions Note Date & Type Note Facility Instructions Not on filedocumented in this en counter [facility] Summary Purpose Family History No Family History Records FoundNo Family History Records FoundNo Family History Records FoundNo Family History Records FoundNo Family History Records Found Advance Directives No Advanced Directives Records FoundDocuments on File Type Date Recorded Patient Process Chemist Expl anation DNR Physician Order 08/25/2023 2:34 PM Advance Directive 08/11/2023 6:04 PM Adva nced Directive 08-11-23 DNR Physician Order 03/18/2022 11:05 AM DNR Physician Order 09/30/2021 8:34 AM DNR Physician Order 02/16/2021 11:13 AM DNR Physician Order 10/15/2020 9:46 AM Latest Code Status on File Code Status Date Activated Date Inactivated Comments DNR [facility] (DNR-CCA) [place] 08/16/2023 2:45 PM 08/24/2023 1:03 PM Code Status History Code Status Date Activated Date Inactivated Comments Full Code 08/12/2023 1:02 PM 08/16/2023 2:45 PM DNR [facility] Arrest (DNR -CCA) [place] 10/11/2022 9:52 AM 10/19/2022 1:02 PM DNR [facility] Arrest (DNR -CCA) [place] 08/02/2022 11:43 AM 08/07/2022 6:45 PM DNR [facility] Arrest (DNR -CCA) [place] 08/01/2022 11:08 PM 08/02/2022 10:10 AM Additional Source Comments (unrecognized sect ion and content) No Status Records FoundNo Status Records FoundNo Status Records FoundNo Status Records FoundNo Status Records Found INFORMATION SOURCE (unrecogn ized section and content) DATE CREATED AUTHOR 09/19/2020 [facility] DATE CREATED AUTHOR AUTHOR'S ORGANIZ ATION 12/30/2022 [facility] DATE CREATED AUTHOR AUTHOR'S ORGANIZ ATION 11/30/2023 [facility] DATE CREATED AUTHOR AUTHOR'S ORGANIZ ATION 07/09/2024 [facility] DATE CREATED AUTHOR AUTHOR'S ORGANIZ ATION 07/12/2024 [facility] Reason for Visit (unrecogniz ed section and content) Reason Comments Follow-up IP FU Paroxysmal atr ial fibrillation; maintaining sinus rhythm Chronic heart failure with reduced ejection fraction; EF 35-40% by TTE 04/2022 Cardiomyopathy, no prior ischemic evaluation NSVT Ascending aortic aneurysm; 4.0 cm CTA 08/11/23 Acute hypoxic respiratory failure Septic shock Pneumonia SANTO History of DVT/PE History of sigmoidectomy with ostomy PT AT [place] AND INSTRUCTED TO PLEASE MAKE SURE PT IS ACCOMPANIED W/STAFF AND SUPPLIES ALONG W/CHANGE OF CLOTHES IF PATIENTS OSTOMY BAG BREAKS Care Teams (unrecognized sec tion and content) Chemical Laboratory Chief Relationship Specialty Start Date End Date Lobo Machuca DO [address] [place] [address] PCP - General Family Medicine 01/19/23 FOR [...] BE BASED ON THE PRIMARY CLINICAL RECORDS. [employer] provides no warranty or guarantee of the accuracy or completeness of information in this document.
--- NOTE | 2024-07-17 15:42 | ED_ITS ---
HPI HPI - General Adult General Chief complaint: Recheck/Abnormal Lab/Rx Stated complaint: Bleeding Time Seen by Provider: 07/17/24 15:19 Source: EMR Mode of arrival: ambulance Limitations: no limitations History of Present Illness HPI narrative: 79-year-old male presents to the emergency department for bleeding from his colostomy stoma. He is a poor historian and is unable to provide us any history. He was sent from [facility]. No further history is obtainable initially. Opioid HPI Opioid Management Most Recent Opioid Data: No Data to Display Review of Systems ROS Narrative Not obtainable, not oriented PFSH PFSH Social History Little interest or pleasure in doing things: not at all Feeling down, depressed, or hopeless: not at all Exam Narrative Exam Narrative: Nurses note and vital signs reviewed and patient is not hypoxic. General: The patient appears in no apparent distress. Patient is resting comfortably on cart. Skin: Warm, dry, no pallor noted. There is no rash noted. Head: Normocephalic, atraumatic Eye: Normal conjunctiva, no drainage Ears, Nose, Mouth, and Throat: oral mucosa is moist. Nares patent. a Cardiovascular: Regular Rate and Rhythm Respiratory: Patient is in no distress, no accessory muscle use, lungs are clear to auscultation, no wheezing, rales or rhonchi Back: non-tender GI: Obese and nontender. Colostomy is in place. No bag was present upon arrival. There is no active bleeding but there is stool coming through the ostomy site. Musculoskeletal: No joint swelling Neurological: He knows his name and where he is but he does not know the year. Psychiatric: Cooperative Constitutional Vital Signs, click to edit/add: Last Vital Signs Temp 98.0 F 07/17/24 15:23 Pulse 100 H 07/17/24 15:23 Resp 20 07/17/24 15:23 BP 120/77 07/17/24 16:21 Pulse Ox 91 L 07/17/24 15:23 O2 Del Method Room Air 07/17/24 15:23 Course Vital Signs Vital signs: Vital Signs Temperature 98.0 F 07/17/24 15:23 Pulse Rate 100 H 07/17/24 15:23 Respiratory Rate 20 07/17/24 15:23 Pulse Oximetry 91 L 07/17/24 15:23 Oxygen Delivery Method Room Air 07/17/24 15:23 Temperature 98.0 F 07/17/24 15:23 Pulse Rate 100 H 07/17/24 15:23 Respiratory Rate 20 07/17/24 15:23 Blood Pressure 120/77 07/17/24 16:21 Pulse Oximetry 91 L 07/17/24 15:23 Oxygen Delivery Method Room Air 07/17/24 15:23 Medical Decision Making MDM Narrative Medical decision making narrative: Blood work is essentially normal. Records were obtained from this morning when the patient was at [facility] emergency department. At that time he did not have any bleeding and colostomy bag was reapplied. There is no bleeding here. The blood is clearly coming from the area around the colostomy rather than through the colostomy itself. He was recommended follow-up with his general surgeon. There is no indication for acute intervention at this time. Differential Diagnosis Differential Diagnosis: GI bleed, wound check Lab Data Lab results reviewed: Yes I reviewed the patient's lab results Labs: Lab Results 07/17/24 Range/Units 15:40 WBC 9.0 (4.0-11.0) 10^3/uL RBC 3.86 L (4.70-6.10) 10^6/uL Hgb 11.6 L (14.0-18.0) g/dL Hct 38.2 L (42.0-54.0) % MCV 99.0 H (80.0-94.0) fL MCH 30.1 (25.9-34.0) pg MCHC 30.4 (29.9-35.2) g/dL RDW 15.6 H (11.0-15.0) % Plt Count 252 (150-450) 10^3/uL MPV 9.7 (9.5-13.5) fL Neut % (Auto) 75.9 H (43.0-75.0) % Lymph % (Auto) 11.6 L (20.5-60.0) % Christian % (Auto) 8.5 (1.7-12.0) % Eos % (Auto) 3.1 (0.9-7.0) % Baso % (Auto) 0.3 (0.2-2.0) % Neut # (Auto) 6.8 H (1.4-6.5) 10^3/uL Lymph # (Auto) 1.0 L (1.2-3.8) 10^3/uL Christian # (Auto) 0.8 (0.3-0.8) 10^3/uL Eos # (Auto) 0.3 (0.0-0.7) 10^3/uL Baso # (Auto) 0.0 (0.0-0.1) 10^3/uL Abs Immat Gran (auto) 0.05 H (0.00-0.03) 10^3/uL Imm/Tot Granulo (auto) 0.6 H (0.0-0.5) % Sodium 139 (136-145) mmol/L Potassium 3.9 (3.5-5.1) mmol/L Chloride 107 (98-107) mmol/L Carbon Dioxide 24.9 (21.0-32.0) mmol/L Anion Gap 11.0 BUN 30.0 H (7.0-18.0) mg/dL Creatinine 1.01 (0.70-1.30) mg/dL Est GFR ( Amer) >60 (>=60 mL/min/1.73m^2) Est GFR (Non-Af Amer) >60 (>=60 mL/min/1.73m^2) BUN/Creatinine Ratio 29.7 Glucose 113 H (74-106) mg/dL Calcium 8.7 (8.5-10.1) mg/dL Discharge Plan Discharge Chief Complaint: Recheck/Abnormal Lab/Rx Clinical Impression: Encounter for wound re-check Patient Disposition: Home, Self-Care Time of Disposition Decision: 17:04 Condition: Good Mode of Transportation: Private Vehicle Print Language: Urdu Instructions: Colostomy Care (ED) Additional Instructions: Follow-up with general surgeon at [facility]. Referrals: Lobo Gonzalez DO [Primary Care Provider] - 1 week
--- NOTE | 2024-07-17 15:44 | PC.NURSE ---
Patient arrives to ED by EMS. Sent by [facility] for evaluation of bleeding at stoma site . Arrives with no wafer or colostomy on, skin surrounding ostomy is excoriated and has dried bleeding at site. Area does have stool that is soft. Area cleansed with soap and warm water.
[2024-07-17 15:49] LABS: Basophils Percent Auto 0.3 % (0.2-2.0); Eosinophils Absolute Auto 0.3 10^3/uL (0.0-0.7); Eosinophils Percent Auto 3.1 % (0.9-7.0); Hematocrit 38.2 % (42.0-54.0); Hemoglobin 11.6 g/dL (14.0-18.0); Immature Granulocytes Abs Auto 0.05 10^3/uL (0.00-0.03); Immature Granulocytes Pct Auto 0.6 % (0.0-0.5); Lymphocytes Percent Auto 11.6 % (20.5-60.0); Mean Corpuscular HGB Conc 30.4 g/dL (29.9-35.2); Mean Corpuscular Hemoglobin 30.1 pg (25.9-34.0); Mean Platelet Volume 9.7 fL (9.5-13.5); Monocytes Absolute Auto 0.8 10^3/uL (0.3-0.8); Monocytes Percent Auto 8.5 % (1.7-12.0); Neutrophils Absolute Auto 6.8 10^3/uL (1.4-6.5); Neutrophils Percent Auto 75.9 % (43.0-75.0); Platelet Count 252 10^3/uL (150-450); Red Blood Count 3.86 10^6/uL (4.70-6.10); Red Cell Distribution Width 15.6 % (11.0-15.0)
[2024-07-17 15:57] LABS: BUN Creatinine Ratio 29.7; Calcium 8.7 mg/dL (8.5-10.1); Carbon Dioxide 24.9 mmol/L (21.0-32.0); Chloride 107 mmol/L (98-107); Estimated GFR (African America >60 (>=60 mL/min/1.73m^2); Estimated GFR (Non-African Ame >60 (>=60 mL/min/1.73m^2); Glucose 113 mg/dL (74-106); Potassium 3.9 mmol/L (3.5-5.1); Sodium 139 mmol/L (136-145)
--- NOTE | 2024-07-17 16:16 | PC.NURSE ---
No further bleeding noted at stoma site. Area cleansed and colostomy bag applied.
[2024-07-17 16:21] VITALS: BP 120/77
--- NOTE | 2024-07-17 17:00 | PC.NURSE ---
pt refused to have diaper brief changed after urinating into it. I asked 3 times and he stated, i'll wait till after im discharged.
== END 2024-07-17 19:21 | disposition home or self-care (01) ==
PROVIDERS: Emergency Provider Emergency Medicine; PCP Family Medicine
DX: Z43.3 Encounter for attention to colostomy (principal); E66.9 Obesity, unspecified; Z68.33 Body mass index [BMI] 33.0-33.9, adult
CPT/HCPCS: 36415; 80048; 85025; 99283

== ENCOUNTER 2024-09-07 01:17 | Outpatient (REF) | payer MEDICARE, MEDICAID, SELFPAY ==
--- OUTSIDE RECORDS SUMMARY | 2024-09-07 01:20 | XMS_ITS | CCD ---
Author Organization [facility] Care Team Providers Care [employer] Feeder Name Role Phone MARY LOU, YOLANDA Kelly Admitting Unavailable WONDERLY, YOLANDA Mendoza Consulting Unavailable RAMALY, YOLANDA B Attending Unavailable RAMALY, YOLANDA B Attending Unavailable WONDERLY, YOLANDA B Admitting Unavailable WONDERLY, YOLANDA B Consulting Unavailable Sven DO, Lobo S Primary Care Provider YOBANY WREN Admitting Unavailable YOBANY WREN Attending Unavailable DIGNA, DARRYN H Referring Unavailable SVEN, LOBO S Primary Care Unavailable RAMADAN, ABED Referring Unavailable SVEN, LOBO S Primary Care Unavailable KARLOS, CHIKI Referring Unavailable SVEN, LOBO S Primary Care Unavailable KARLOS, CHIKI Referring Unavailable SVEN, LOBO S Primary Care Unavailable KATHERINE MOHR Attending Unavailable SVEN, LOBO S Referring Unavailable SVEN, LOBO S Primary Care Unavailable SVEN, LOBO S Primary Care Unavailable SVEN, LOBO S Primary Care Unavailable DIGNA, DARRYN H Attending Unavailable SVEN, LOBO S Primary Care Unavailable ROBERT CHILD Attending Unavailable KARLOS, CHIKI Referring Unavailable SVEN, [...] Primary Care Unavailable STORM SULLIVAN Attending Unavailable SVEN, LOBO S Primary Care Unavailable DIGNA, DARRYN H Attending Unavailable DIGNA, DARRYN H Attending Unavailable DIGNA, DARRYN H Referring Unavailable SVEN, LOBO S Primary Care Unavailable SVEN, LOBO S Primary Care Unavailable KARLOS, CHIKI Referring Unavailable SVEN, LOBO Boles Primary Care Unavailable KARLOSЕЛЕНАMY Referring Unavailable SVEN, LOBO Boles Primary Care Unavailable KARLOSЕЛЕНАMY Referring Unavailable SVEN, LOBO Boles Primary Care Unavailable KARLOS, CHIKI Referring Unavailable SVEN, LOBO Boles Primary Care Unavailable SVEN, LOBO Boles Referring Unavailable SVEN, LOBO Boles Primary Care Unavailable ANTONIO FOX Referring Unavailable SVEN, LOBO Boles Primary Care Unavailable STORM SULLIVAN Referring Unavailable SVEN, LOBO Bloes Primary Care Unavailable DARRYN SAWYER Referring Unavailable SVEN, LOBO Boles Primary Care Unavailable TERRIE ORTA Referring Unavailable SVEN, LOBO Boles Primary Care Unavailable SVEN, LOBO Boles Referring Unavailable SVEN, LOBO Boles Primary Care Unavailable Medications Current Medications Medication [...] Translations: [Aneurysm of ascending aorta without rupture ([facility])] Onset: 1 10-12-2023 Chronic Cardiac dysrhythmias (7 [...] VIRL COMMUNICABL DZ] Onset: 0 Episodic Other aftercare (1 source) Encounter for other specified aftercare; Translations: [Encounter for other specified aftercare] Onset: 4 Episodic Other injuries and conditions due to [...] Translations: [Hypomagnesemia] Onset: 2 08-01-2022 Chronic Other nutritional; endocrine; and metabolic disorders (1 source) Hypocalcemia; Translations: [Hypocalcemia] Onset: 4 Chronic Yajaira-; endo-; and myocarditis; cardiomyopathy (except that caused by tuberculosis or sexually transmitted disease) (3 sources) Cardiomyopathy; Translations: [Cardiomyopathy, unspecified] Onset: 2 10-12-2023 Chronic Respiratory failure; insufficiency; arrest (adult) (1 source) Vzbsw-gv-vdekhpj respiratory failure; Translations: [Acute and chronic respiratory [...] pulmonary embolism without acute cor pulmonale] Onset: 01-15-2021 01-15-2021 Episodic Residual codes; unclassified (1 source) Insomnia; [...] Interpretation Reference Range Facility BASIC METABOLIC PANLon 07-17 Anion gap [Moles/Vol] 9 mmol/L Normal 5-[address] [facility] Comment on above: Performed By: #### 6 30-4 #### [facility] ([id number]) [address] [place] [address] Calcium [Mass/Vol] 8.3 mg/dL Low 8.5-10.5 [facility] Comment on above: Performed By: #### 6 30-4 #### [facility] ([id number]) [address], [address] [place] [address] Chloride [Moles/Vol] 109 mmol/L Normal 98-[address] [facility] Comment on above: Performed By: #### 6 30-4 #### [facility] ([id number]) [address], [address] [place] [address] CO2 [Moles/Vol] 23 mmol/L Normal 22-[address] [facility] Comment on above: Performed By: #### 6 30-4 #### [facility] ([id number]) [address] [place] [address] Creatinine [Mass/Vol] 0.75 mg/dL Normal 0.70-1.[address] [facility] Comment on above: Result Comment: METH OD TRACEABLE TO IDMS STANDARD Performed By: #### 6 30-4 #### [facility] ([id number]) [address], [address] [place] [address] eGFR (CKD-EPI) NON-RACE DEPENDENT >90 Normal >[address] [facility] Comment on above: Result Comment: Reported eGFR is based on the CKD-EPI 2020 equation that does not use a race coefficient. Performed By: #### 6 30-4 #### [facility] ([id number]) [address] [place] [address] Glucose [Mass/Vol] 94 mg/dL Normal 65-99 [facility] Comment on above: Performed By: #### 6 30-4 #### [facility] ([id number]) [address] [facility] [address] [place] [address] Potassium [Moles/Vol] 4.4 mmol/L Normal 3.5-5.[address] [facility] Comment on above: Performed By: #### 6 30-4 #### [facility] ([id number]) [address], [address] [place] [address] Sodium [Moles/Vol] 141 mmol/L Normal 134-146 [facility] Comment on above: Performed By: #### 6 30-4 #### [facility] ([id number]) [address], [address] [place] [address] Urea nitrogen [Mass/Vol] 35 mg/dL High 5-[address] [facility] Comment on above: Performed By: #### 6 30-4 #### [facility] ([id number]) [address] [place] [address] CBC AND AUTO DIFFon 07-17-20 ABSOLUTE BASOPHIL 0.1 X10E9/L Normal 0.0-0.2 [facility] Comment on above: Performed By: #### 6 30-4 #### [facility] ([id number]) [address] [place] [address] ABSOLUTE NEUTROPHIL 6.9 X10E9/L High 1.5-6.6 [facility] Comment on above: Performed By: #### 6 30-4 #### [facility] ([id number]) [address] [place] [address] Basophils/100 WBC (Bld) 0.6 % Normal [facility] Comment on above: Performed By: #### 6 30-4 #### [facility] ([id number]) [address] [place] [address] Eosinophils (Bld) [#/Vol] 0.3 10*3/uL Normal 0.0-0.[address] [facility] Comment on above: Performed By: #### 6 30-4 #### [facility] ([id number]) [address] [place] [address] Eosinophils/100 WBC (Bld) 3.1 % Normal [facility] Comment on above: Performed By: #### 6 30-4 #### [facility] ([id number]) [address] [place] [address] Erythrocyte distribution width (RBC) [Ratio] 16.4 % High 11.5-15.[address] [facility] Comment on above: Performed By: #### 6 30-4 #### [facility] ([id number]) [address] [place] [address] Hematocrit (Bld) [Volume fraction] 36.2 % Low 39-[address] [facility] Comment on above: Performed By: #### 6 30-4 #### [facility] ([id number]) [address], [address] [place] [address] Hemoglobin (Bld) [Mass/Vol] 11.6 g/dL Low 13.0-17.[address] [facility] Comment on above: Performed By: #### 6 30-4 #### [facility] ([id number]) [address] [place] [address] Lymphocytes (Bld) [#/Vol] 1.1 10*3/uL Normal 1.0-3.[address] [facility] Comment on above: Performed By: #### 6 30-4 #### [facility] ([id number]) [address], [address] [place] [address] Lymphocytes/100 WBC (Bld) 12.5 % Normal [facility] Comment on above: Performed By: #### 6 30-4 #### [facility] ([id number]) [address], [address] [place] [address] MCH (RBC) [Entitic mass] 29.9 pg Normal 27-[address] [facility] Comment on above: Performed By: #### 6 30-4 #### [facility] ([id number]) [address] [place] [address] MCHC (RBC) [Mass/Vol] 32.1 g/dL Normal 32-[address] [facility] Comment on above: Performed By: #### 6 30-4 #### [facility] ([id number]) [address], [address] [place] [address] MCV (RBC) [Entitic vol] 93 fL Normal 80-[address] [facility] Comment on above: Performed By: #### 6 30-4 #### [facility] ([id number]) [address], [address] [place] [address] Monocytes (Bld) [#/Vol] 0.8 10*3/uL Normal 0-0.[address] [facility] Comment on above: Performed By: #### 6 30-4 #### [facility] ([id number]) [address], [address] [place] [address] Monocytes/100 WBC (Bld) 9.1 % Normal [facility] Comment on above: Performed By: #### 6 30-4 #### [facility] ([id number]) [address] [place] [address] Neutrophils/100 WBC (Bld) 74.7 % Normal [facility] Comment on above: Performed By: #### 6 30-4 #### [facility] ([id number]) [address] [place] [address] Platelet mean volume (Bld) [Entitic vol] 7.9 fL Normal 7-[address] [facility] Comment on above: Performed By: #### 6 30-4 #### [facility] ([id number]) [address], [address] [place] [address] Platelets (Bld) [#/Vol] 262 10*3/uL Normal 150-[address] [facility] Comment on above: Performed By: #### 6 30-4 #### [facility] ([id number]) [address], [address] [place] [address] RBC COUNT 3.90 X10E12/L Low 4.10-5.[address] [facility] Comment on above: Performed By: #### 6 30-4 #### [facility] ([id number]) [address], [address] [place] [address] WBC (Bld) [#/Vol] 9.2 10*3/uL Normal 4.0-11.0 [facility] Comment on above: Performed By: #### 6 30-4 #### [facility] ([id number]) [address], [address] [place] [address] LIPASEon 07-17-2024 Lipase [Catalytic activity/Vol] 41 U/L High 17-[address] [facility] Comment on above: Performed By: #### 6 30-4 #### [facility] ([id number]) [address] [place] [address] LIVER PANELon 07-17-2024 Albumin [Mass/Vol] 2.8 g/dL Low 3.2-5.3 [facility] Comment on above: Performed By: #### Lita MASSEY [facility], #### [facility] ([id number]) [address] [place] [address] ALP [Catalytic activity/Vol] 104 U/L Normal 39-[address] [facility] Comment on above: Performed By: #### Lita MASSEY [facility], #### [facility] ([id number]) [address] [place] [address] ALT [Catalytic activity/Vol] 19 U/L Normal 0-[address] [facility] Comment on above: Performed By: #### Lita MASSEY [facility], #### [facility] ([id number]) [address] [place] [address] AST [Catalytic activity/Vol] 25 U/L Normal 0-[address] [facility] Comment on above: Performed By: #### Lita MASSEY [facility], #### [facility] ([id number]) [address] [place] [address] Bilirubin [Mass/Vol] 0.2 mg/dL Low 0.3-1.[address] [facility] Comment on above: Performed By: #### ASHELY ALARCON, #### [facility] ([id number]) [address] [place] [address] Bilirubin.indirect [Mass/Vol] mg/dL Normal 0.0-0.[address] [facility] Comment on above: Performed By: #### C BRYSON [facility], [address]-3 #### [facility] ([id number]) [address] [place] [address] Protein [Mass/Vol] 7.0 g/dL Normal 6.0-8.0 [facility] Comment on above: Performed By: #### Lita MASSEY [facility], [address]-8 #### [facility] ([id number]) [address] [place] [address] Lactate (P joan) [Moles/Vol]o n 07-17-2024 LACTATE W/REFLEX 0.6 mmol/L Normal 0.4-2.0 [facility] Comment on above: Result Comment: Result did not trigger repeat Lactate, re-order if needed. Performed By: #### Lita MASSEY [facility], 850[address]-2 #### [facility] ([id number]) [address] [place] [address] PROTIME AND INRon 07-17-2024 INR Coag (PPP) [Relative time] 1.5 {INR} High 0.8-1.[address] [facility] Comment on above: Performed By: #### 6 30-4 #### [facility] ([id number]) [address], [address] [place] [address] PT Coag (PPP) [Time] 16.9 s High 9.8-13.[address] [facility] Comment on above: Result Comment: NEW REFERENCE RANGE Performed By: #### 6 30-4 #### [facility] ([id number]) [address] [place] [address] aPTT Coag (PPP) [Time]on aPTT Coag (Bld) [Time] 44 s High 26-[address] [facility] Comment on above: Result Comment: NEW REFERENCE RANGE Performed By: #### 6 30-4 #### [facility] ([id number]) [address] [place] [address] BASIC METABOLIC PANLon 07-02 Anion gap [Moles/Vol] 10 mmol/L Normal 5-[address] [facility] Comment on above: Performed By: #### 6 30-4 #### [facility] ([id number]) [address] [place] [address] Calcium [Mass/Vol] 8.8 mg/dL Normal 8.5-10.5 [facility] Comment on above: Performed By: #### 6 30-4 #### [facility] ([id number]) [address] [place] [address] Chloride [Moles/Vol] 107 mmol/L Normal 98-[address] [facility] Comment on above: Performed By: #### 6 30-4 #### [facility] ([id number]) [address] [place] [address] CO2 [Moles/Vol] 23 mmol/L Normal 22-[address] [facility] Comment on above: Performed By: #### 6 30-4 #### [facility] ([id number]) [address] [place] [address] Creatinine [Mass/Vol] 0.93 mg/dL Normal 0.70-1.[address] [facility] Comment on above: Result Comment: METH OD TRACEABLE TO IDMS STANDARD Performed By: #### 6 30-4 #### [facility] ([id number]) [address] [place] [address] GFR/1.73 sq M.predicted among non-blacks MDRD (S/P/Bld) [Vol rate/Area] 85 mL/min/{1.73_m2} Normal >[address] [facility] Comment on above: Result Comment: Reported eGFR is based on the CKD-EPI 2020 equation that does not use a race coefficient. Performed By: #### 6 30-4 #### [facility] ([id number]) [address] [place] [address] Glucose [Mass/Vol] 108 mg/dL High 65-99 [facility] Comment on above: Performed By: #### 6 30-4 #### [facility] ([id number]) [address] [place] [address] Potassium [Moles/Vol] 3.8 mmol/L Normal 3.5-5.[address] [facility] Comment on above: Performed By: #### 6 30-4 #### [facility] ([id number]) [address], [address] [place] [address] Sodium [Moles/Vol] 140 mmol/L Normal 134-146 [facility] Comment on above: Performed By: #### 6 30-4 #### [facility] ([id number]) [address] [place] [address] Urea nitrogen [Mass/Vol] 29 mg/dL High 5-[address] [facility] Comment on above: Performed By: #### 6 30-4 #### [facility] ([id number]) [address] [place] [address] CBC AND AUTO DIFFon 07-02-20 24 ABSOLUTE BASOPHIL 0.0 X10E9/L Normal 0.0-0.2 [facility] Comment on above: Performed By: #### 6 30-4 #### [facility] ([id number]) [address], [address] [place] [address] ABSOLUTE NEUTROPHIL 10.4 X10E9/L High 1.5-6.6 [facility] Comment on above: Performed By: #### 6 30-4 #### [facility] ([id number]) [address], [address] [place] [address] Basophils/100 WBC (Bld) 0.3 % Normal [facility] Comment on above: Performed By: #### 6 30-4 #### [facility] ([id number]) [address], [address] [place] [address] Eosinophils (Bld) [#/Vol] 0.4 10*3/uL Normal 0.0-0.[address] [facility] Comment on above: Performed By: #### 6 30-4 #### [facility] ([id number]) [address] [facility] [address] [place] [address] Eosinophils/100 WBC (Bld) 2.7 % Normal [facility] Comment on above: Performed By: #### 6 30-4 #### [facility] ([id number]) [address] [address] [place] [address] Erythrocyte distribution width (RBC) [Ratio] 16.3 % High 11.5-15.[address] [facility] Comment on above: Performed By: #### 6 30-4 #### [facility] ([id number]) [address] [facility] [address] [place] [address] Hematocrit (Bld) [Volume fraction] 38.2 % Low 39-[address] [facility] Comment on above: Performed By: #### 6 30-4 #### [facility] ([id number]) [address] [address] [place] [address] Hemoglobin (Bld) [Mass/Vol] 12.2 g/dL Low 13.0-17.[address] [facility] Comment on above: Performed By: #### 6 30-4 #### [facility] ([id number]) [address] [address] [place] [address] Lymphocytes (Bld) [#/Vol] 0.9 10*3/uL Low 1.0-3.[address] [facility] Comment on above: Performed By: #### 6 30-4 #### [facility] ([id number]) [address] [place] [address] Lymphocytes/100 WBC (Bld) 6.8 % Normal [facility] Comment on above: Performed By: #### 6 30-4 #### [facility] ([id number]) [address] [place] [address] MCH (RBC) [Entitic mass] 29.6 pg Normal 27-[address] [facility] Comment on above: Performed By: #### 6 30-4 #### [facility] ([id number]) [address] [place] [address] MCHC (RBC) [Mass/Vol] 31.8 g/dL Low 32-[address] [facility] Comment on above: Performed By: #### 6 30-4 #### [facility] ([id number]) [address] [place] [address] MCV (RBC) [Entitic vol] 93 fL Normal 80-[address] [facility] Comment on above: Performed By: #### 6 30-4 #### [facility] ([id number]) [address] [place] [address] Monocytes (Bld) [#/Vol] 1.3 10*3/uL High 0-0.[address] [facility] Comment on above: Performed By: #### 6 30-4 #### [facility] ([id number]) [address] [place] [address] Monocytes/100 WBC (Bld) 10.2 % Normal [facility] Comment on above: Performed By: #### 6 30-4 #### [facility] ([id number]) [address] [place] [address] Neutrophils/100 WBC (Bld) 80.0 % Normal [facility] Comment on above: Performed By: #### 6 30-4 #### [facility] ([id number]) [address] [place] [address] Platelet mean volume (Bld) [Entitic vol] 7.8 fL Normal 7-[address] [facility] Comment on above: Performed By: #### 6 30-4 #### [facility] ([id number]) [address] [place] [address] Platelets (Bld) [#/Vol] 300 10*3/uL Normal 150-[address] [facility] Comment on above: Performed By: #### 6 30-4 #### [facility] ([id number]) [address], [address] [place] [address] RBC COUNT 4.10 X10E12/L Normal 4.10-5.[address] [facility] Comment on above: Performed By: #### 6 30-4 #### [facility] ([id number]) [address], [address] [place] [address] WBC (Bld) [#/Vol] 12.9 10*3/uL High 4.0-11.0 [facility] Comment on above: Performed By: #### 6 30-4 #### [facility] ([id number]) [address] [place] [address] BASIC METABOLIC PANLon 06-29 Anion gap [Moles/Vol] 8 mmol/L Normal 5-[address] [facility] Comment on above: Performed By: #### 6 30-4 #### [facility] ([id number]) [address] [place] [address] Calcium [Mass/Vol] 8.7 mg/dL Normal 8.5-10.5 [facility] Comment on above: Performed By: #### 6 30-4 #### [facility] ([id number]) [address] [place] [address] Chloride [Moles/Vol] 107 mmol/L Normal 98-[address] [facility] Comment on above: Performed By: #### 6 30-4 #### [facility] ([id number]) [address] [address] [place] [address] CO2 [Moles/Vol] 23 mmol/L Normal 22-[address] [facility] Comment on above: Performed By: #### 6 30-4 #### [facility] ([id number]) [address] [address] Creatinine [Mass/Vol] 0.86 mg/dL Normal 0.70-1.[address] [facility] Comment on above: Result Comment: METH OD TRACEABLE TO IDMS STANDARD Performed By: #### 6 30-4 #### [facility] ([id number]) [address] [address] GFR/1.73 sq M.predicted among non-blacks MDRD (S/P/Bld) [Vol rate/Area] 89 mL/min/{1.73_m2} Normal >[address] [facility] Comment on above: Result Comment: Reported eGFR is based on the CKD-EPI 2020 equation that does not use a race coefficient. Performed By: #### 6 30-4 #### [facility] ([id number]) [address] [address] [place] [address] Glucose [Mass/Vol] 116 mg/dL High 65-99 [facility] Comment on above: Performed By: #### 6 30-4 #### [facility] ([id number]) [address] [address] [place] [address] Potassium [Moles/Vol] 4.3 mmol/L Normal 3.5-5.[address] [facility] Comment on above: Performed By: #### 6 30-4 #### [facility] ([id number]) [address] [address] [place] [address] Sodium [Moles/Vol] 138 mmol/L Normal 134-146 [facility] Comment on above: Performed By: #### 6 30-4 #### [facility] ([id number]) [address], [address] [place] [address] Urea nitrogen [Mass/Vol] 34 mg/dL High 5-[address] [facility] Comment on above: Performed By: #### 6 30-4 #### [facility] ([id number]) [address], [address] [place] [address] CBC AND AUTO DIFFon 06-29-20 24 ABSOLUTE BASOPHIL 0.0 X10E9/L Normal 0.0-0.2 [facility] Comment on above: Performed By: #### N UM #### [facility] ([id number]) [address] [place] [address] 18562 ABSOLUTE NEUTROPHIL 10.1 X10E9/L High 1.5-6.6 [facility] Comment on above: Performed By: #### N UM #### [facility] ([id number]) [address] [place] [address] 97947 Basophils/100 WBC (Bld) 0.2 % Normal [facility] Comment on above: Performed By: #### N UM #### [facility] ([id number]) [address] [place] [address] 85926 Eosinophils (Bld) [#/Vol] 0.3 10*3/uL Normal 0.0-0.[address] [facility] Comment on above: Performed By: #### N UM #### [facility] ([id number]) [address] [place] [address] 72367 Eosinophils/100 WBC (Bld) 2.3 % Normal [facility] Comment on above: Performed By: #### N UM #### [facility] ([id number]) [address] [place] [address] 96776 Erythrocyte distribution width (RBC) [Ratio] 15.7 % High 11.5-15.[address] [facility] Comment on above: Performed By: #### N UM #### [facility] ([id number]) [address] [place] [address] 15704 Hematocrit (Bld) [Volume fraction] 37.7 % Low 39-[address] [facility] Comment on above: Performed By: #### N UM #### [facility] ([id number]) [address] [place] [address] 93821 Hemoglobin (Bld) [Mass/Vol] 12.2 g/dL Low 13.0-17.[address] [facility] Comment on above: Performed By: #### N UM #### [facility] ([id number]) [address] [place] [address] 29669 Lymphocytes (Bld) [#/Vol] 0.8 10*3/uL Low 1.0-3.[address] [facility] Comment on above: Performed By: #### N UM #### [facility] ([id number]) [address] [place] [address] 25390 Lymphocytes/100 WBC (Bld) 6.8 % Normal [facility] Comment on above: Performed By: #### N UM #### [facility] ([id number]) [address] [place] [address] 94075 MCH (RBC) [Entitic mass] 29.8 pg Normal 27-[address] [facility] Comment on above: Performed By: #### N UM #### [facility] ([id number]) [address] [place] [address] 12824 MCHC (RBC) [Mass/Vol] 32.3 g/dL Normal 32-[address] [facility] Comment on above: Performed By: #### N UM #### [facility] ([id number]) [address] [place] [address] 66504 MCV (RBC) [Entitic vol] 92 fL Normal 80-[address] [facility] Comment on above: Performed By: #### N UM #### [facility] ([id number]) [address] [place] [address] 77136 Monocytes (Bld) [#/Vol] 1.0 10*3/uL High 0-0.[address] [facility] Comment on above: Performed By: #### N UM #### [facility] ([id number]) [address] [place] [address] 49768 Monocytes/100 WBC (Bld) 8.1 % Normal [facility] Comment on above: Performed By: #### N UM #### [facility] ([id number]) [address] [place] [address] 81653 Neutrophils/100 WBC (Bld) 82.6 % Normal [facility] Comment on above: Performed By: #### N UM #### [facility] ([id number]) [address] [place] [address] 98663 Platelet mean volume (Bld) [Entitic vol] 7.7 fL Normal 7-[address] [facility] Comment on above: Performed By: #### N UM #### [facility] ([id number]) [address] [place] [address] 55798 Platelets (Bld) [#/Vol] 288 10*3/uL Normal 150-[address] [facility] Comment on above: Performed By: #### N UM #### [facility] ([id number]) [address] [place] [address] 46327 RBC COUNT 4.09 X10E12/L Low 4.10-5.[address] [facility] Comment on above: Performed By: #### N UM #### [facility] ([id number]) [address] [place] [address] 68187 WBC (Bld) [#/Vol] 12.2 10*3/uL High 4.0-11.0 [facility] Comment on above: Performed By: #### N UM #### [facility] ([id number]) [address] [place] [address] 79410 Lactate (P joan) [Moles/Vol]o n 06-29-2024 LACTATE W/REFLEX 0.9 mmol/L Normal 0.4-2.0 [facility] Comment on above: Result Comment: Result did not trigger repeat Lactate, re-order if needed. Performed By: #### 6 30-4 #### [facility] ([id number]) [address] [facility], [address] [place] [address] PROTIME AND INRon 06-29-2024 INR Coag (PPP) [Relative time] 1.3 {INR} High 0.8-1.[address] [facility] Comment on above: Performed By: #### N UM #### [facility] ([id number]) [address] [place] [address] 79409 PT Coag (PPP) [Time] 15.0 s High 9.8-13.[address] [facility] Comment on above: Result Comment: NEW REFERENCE RANGE Performed By: #### N UM #### [facility] ([id number]) [address] [place] [address] 68534 aPTT Coag (PPP) [Time]on aPTT Coag (Bld) [Time] 51 s High 26-[address] [facility] Comment on above: Result Comment: NEW REFERENCE RANGE Performed By: #### 6 30-4 #### [facility] ([id number]) [address] [place] [address] URINALYSISon 01-27-2024 Bilirubin Ql (U) Negative Normal NEG [facility] BLOOD/HGB Small Abnormal NEG [facility] Color (U) YELLOW Normal YELLOW [facility] Glucose Ql (U) Negative Normal NEG [facility] Ketones Ql (U) Negative Normal NEG [facility] Leukocyte esterase Test strip Ql (U) Large Abnormal NEG [facility] Nitrite Ql (U) Negative Normal NEG [facility] pH (U) 7.5 [pH] Normal 5.0-8.5 [facility] Protein Ql (U) 50 mg/dL Abnormal NEG [facility] R.B.CELLS 13 /hpf High 0-5 [facility] Specific gravity (U) [Rel density] 1.010 Normal 1.003-1.035 [facility] TURBIDITY CLOUDY Abnormal CLEAR [facility] Urobilinogen (U) [Mass/Vol] mg/dL Normal <1.1 [facility] W.B.CELLS >720 High 0-5 [facility] URINE CULTUREon 01-27-2024 Bacteria identified Cx [...] F TRIMETH/SULFAMETHOXAZOL E S <=/ F Susceptible [facility] Comment on above: Performed By: #### 6 30-4 #### [facility] ([id number]) [address] [place] [address], [address] [place] [address] HGB A1C (GLYCO-HGB)on 2023 Glucose [Mass/Vol] 114 mg/dL Normal [facility] HbA1c (Bld) [Mass fraction] 5.6 % Normal 4.4-5.[address] [facility] Comment on above: Result Comment: NOTE ADA Guidelines Result HgbA1c Normal : less than 5.7 % Prediabetes : 5.7 % to 6.4 % Diabetes : > 6.4 % Use with caution in patients with abnormal hemoglobin variants as the half-life of red blood cells and in vivo glycation rates are affected. BASIC METABOLIC PANLon 12-02 Anion gap [Moles/Vol] 8 mmol/L Normal 5-[address] [facility] Comment on above: Performed By: #### N UM #### [facility] ([id number]) [address] [place] [address] 72237 Calcium [Mass/Vol] 8.8 mg/dL Normal 8.5-10.5 [facility] Comment on above: Performed By: #### N UM #### [facility] ([id number]) [address] [place] [address] 24788 Chloride [Moles/Vol] 104 mmol/L Normal 98-[address] [facility] Comment on above: Performed By: #### N UM #### [facility] ([id number]) [address] [place] [address] 37945 CO2 [Moles/Vol] 27 mmol/L Normal 22-[address] [facility] Comment on above: Performed By: #### N UM #### [facility] ([id number]) [address] [place] [address] 05842 Creatinine [Mass/Vol] 1.06 mg/dL Normal 0.70-1.[address] [facility] Comment on above: Result Comment: METH OD TRACEABLE TO IDMS STANDARD Performed By: #### N UM #### [facility] ([id number]) [address] [place] [address] 71054 GFR/1.73 sq M.predicted among non-blacks MDRD (S/P/Bld) [Vol rate/Area] 73 mL/min/{1.73_m2} Normal >[address] [facility] Comment on above: Result Comment: Reported eGFR is based on the CKD-EPI 2020 equation that does not use a race coefficient. Performed By: #### N UM #### [facility] ([id number]) [address] [place] [address] 98408 Glucose [Mass/Vol] 97 mg/dL Normal 65-99 [facility] Comment on above: Performed By: #### N UM #### [facility] ([id number]) [address] [place] [address] 65286 Potassium [Moles/Vol] 4.2 mmol/L Normal 3.5-5.[address] [facility] Comment on above: Performed By: #### N UM #### [facility] ([id number]) [address] [place] [address] 74903 Sodium [Moles/Vol] 139 mmol/L Normal 134-146 [facility] Comment on above: Performed By: #### N UM #### [facility] ([id number]) [address] [place] [address] 73195 Urea nitrogen [Mass/Vol] 23 mg/dL Normal 5-[address] [facility] Comment on above: Performed By: #### N UM #### [facility] ([id number]) [address] [place] [address] 51180 CBC AND AUTO DIFFon 11-28-19 24 ABSOLUTE BASOPHIL 0.1 X10E9/L Normal 0.0-0.2 [facility] Comment on above: Performed By: #### N UM #### [facility] ([id number]) [address] [place] [address] 01048 ABSOLUTE NEUTROPHIL 7.2 X10E9/L High 1.5-6.6 [facility] Comment on above: Performed By: #### N UM #### [facility] ([id number]) [address] [place] [address] 44481 Basophils/100 WBC (Bld) 1.0 % Normal [facility] Comment on above: Performed By: #### N UM #### [facility] ([id number]) [address] [place] [address] 62963 Eosinophils (Bld) [#/Vol] 0.3 10*3/uL Normal 0.0-0.[address] [facility] Comment on above: Performed By: #### N UM #### [facility] ([id number]) [address] [place] [address] 52720 Eosinophils/100 WBC (Bld) 2.9 % Normal [facility] Comment on above: Performed By: #### N UM #### [facility] ([id number]) [address] [place] [address] 07434 Erythrocyte distribution width (RBC) [Ratio] 16.8 % High 11.5-15.[address] [facility] Comment on above: Performed By: #### N UM #### [facility] ([id number]) [address] [place] [address] 61343 Hematocrit (Bld) [Volume fraction] 34.8 % Low 39-[address] [facility] Comment on above: Performed By: #### N UM #### [facility] ([id number]) [address] [place] [address] 10516 Hemoglobin (Bld) [Mass/Vol] 11.2 g/dL Low 13.0-17.[address] [facility] Comment on above: Performed By: #### N UM #### [facility] ([id number]) [address] [place] [address] 19713 Lymphocytes (Bld) [#/Vol] 1.1 10*3/uL Normal 1.0-3.[address] [facility] Comment on above: Performed By: #### N UM #### [facility] ([id number]) [address] [place] [address] 70805 Lymphocytes/100 WBC (Bld) 11.3 % Normal [facility] Comment on above: Performed By: #### N UM #### [facility] ([id number]) [address] [place] [address] 50060 MCH (RBC) [Entitic mass] 29.7 pg Normal 27-[address] [facility] Comment on above: Performed By: #### N UM #### [facility] ([id number]) [address] [place] [address] 79385 MCHC (RBC) [Mass/Vol] 32.1 g/dL Normal 32-[address] [facility] Comment on above: Performed By: #### N UM #### [facility] ([id number]) [address] [place] [address] 88171 MCV (RBC) [Entitic vol] 92 fL Normal 80-[address] [facility] Comment on above: Performed By: #### N UM #### [facility] ([id number]) [address] [place] [address] 03239 Monocytes (Bld) [#/Vol] 0.8 10*3/uL Normal 0-0.[address] [facility] Comment on above: Performed By: #### N UM #### [facility] ([id number]) [address] [place] [address] 81412 Monocytes/100 WBC (Bld) 8.7 % Normal [facility] Comment on above: Performed By: #### N UM #### [facility] ([id number]) [address] [place] [address] 26282 Neutrophils/100 WBC (Bld) 76.1 % Normal [facility] Comment on above: Performed By: #### N UM #### [facility] ([id number]) [address] [place] [address] 56747 Platelet mean volume (Bld) [Entitic vol] 8.9 fL Normal 7-[address] [facility] Comment on above: Performed By: #### N UM #### [facility] ([id number]) [address] [place] [address] 45651 Platelets (Bld) [#/Vol] 288 10*3/uL Normal 150-[address] [facility] Comment on above: Performed By: #### N UM #### [facility] ([id number]) [address] [place] [address] 82335 RBC COUNT 3.76 X10E12/L Low 4.10-5.[address] [facility] Comment on above: Performed By: #### N UM #### [facility] ([id number]) [address] [place] [address] 71727 WBC (Bld) [#/Vol] 9.5 10*3/uL Normal 4.0-11.0 [facility] Comment on above: Performed By: #### N UM #### [facility] ([id number]) [address] [place] [address] 49530 BLOOD CULTUREon 11-23-2023 Bacteria identified Aer cx Nom (Bld) CULTURE RESULTS NO GROWTH 5 DAYS Normal [facility] Bacteria identified Aer cx Nom (Bld) CULTURE RESULTS NO GROWTH 5 DAYS Normal [facility] CBC AND AUTO DIFFon 11-23-19 24 ABSOLUTE BASOPHIL 0.1 X10E9/L Normal 0.0-0.2 [facility] Comment on above: Performed By: #### [facility], #### [facility] ([id number]) [address] [facility] [place] [address] ABSOLUTE NEUTROPHIL 8.8 X10E9/L High 1.5-6.6 [facility] Comment on above: Performed By: #### [facility], #### [facility] ([id number]) [address] [place] [address] Basophils/100 WBC (Bld) 0.6 % Normal [facility] Comment on above: Performed By: #### [facility], #### [facility] ([id number]) [address] [place] [address] Eosinophils (Bld) [#/Vol] 0.3 10*3/uL Normal 0.0-0.4 [facility] Comment on above: Performed By: #### [facility], #### [facility] ([id number]) [address] [place] [address] [place] [address] Eosinophils/100 WBC (Bld) 2.8 % Normal [facility] Comment on above: Performed By: #### [facility], #### [facility] ([id number]) [address] [place] [address] Erythrocyte distribution width (RBC) [Ratio] 17.6 % High 11.5-15.0 [facility] Comment on above: Performed By: #### [facility], #### [facility] ([id number]) [address] [place] [address] Hematocrit (Bld) [Volume fraction] 38.1 % Low 39-49 [facility] Comment on above: Performed By: #### C [facility], #### [facility] ([id number]) [address] [place] [address] Hemoglobin (Bld) [Mass/Vol] 12.2 g/dL Low 13.0-17.0 [facility] Comment on above: Performed By: #### C ALIYAH ASENCIO, #### [facility] ([id number]) [address] [place] [address] Lymphocytes (Bld) [#/Vol] 1.0 10*3/uL Normal 1.0-3.5 [facility] Comment on above: Performed By: #### C ALIYAH ASENCIO, #### [facility] ([id number]) [address] [place] [address] Lymphocytes/100 WBC (Bld) 8.9 % Normal [facility] Comment on above: Performed By: #### Lita ASENCIO CMP, #### [facility] ([id number]) [address] [place] [address] MCH (RBC) [Entitic mass] 29.4 pg Normal 27-34 [facility] Comment on above: Performed By: #### Lita ASENCIO [facility], #### [facility] ([id number]) [address] [place] [address] MCHC (RBC) [Mass/Vol] 32.1 g/dL Normal 32-36 [facility] Comment on above: Performed By: #### Lita ASENCIO CMP, #### [facility] ([id number]) [address] [place] [address] MCV (RBC) [Entitic vol] 92 fL Normal 80-100 [facility] Comment on above: Performed By: #### C ALIYAH ASENCIO, #### [facility] ([id number]) [address] [place] [address] Monocytes (Bld) [#/Vol] 1.4 10*3/uL High 0-0.9 [facility] Comment on above: Performed By: #### Lita ASENCIO CMP, #### [facility] ([id number]) [address] [place] [address] Monocytes/100 WBC (Bld) 12.0 % Normal [facility] Comment on above: Performed By: #### C ALIYAH ASENCIO, #### [facility] ([id number]) [address] [place] [address] Neutrophils/100 WBC (Bld) 75.7 % Normal [facility] Comment on above: Performed By: #### C LUIS M CMP, #### [facility] ([id number]) [address] [place] [address] Platelet mean volume (Bld) [Entitic vol] 7.4 fL Normal 7-12 [facility] Comment on above: Performed By: #### C ALIYAH ASENCIO, #### [facility] ([id number]) [address] [place] [address] Platelets (Bld) [#/Vol] 363 10*3/uL Normal 150-450 [facility] Comment on above: Performed By: #### C ALIYAH ASENCIO, #### [facility] ([id number]) [address] [place] [address] RBC COUNT 4.16 X10E12/L Normal 4.10-5.70 [facility] Comment on above: Performed By: #### C LUIS M CMP, #### [facility] ([id number]) [address] [place] [address] WBC (Bld) [#/Vol] 11.6 10*3/uL High 4.0-11.0 [facility] Comment on above: Performed By: #### C LUIS M CMP, #### [facility] ([id number]) [address] [place] [address] COMPREHENSIVE METABOLIC PANE Barvo 11-23-2023 Albumin [Mass/Vol] 2.5 g/dL Low 3.2-5.3 [facility] Comment on above: Performed By: #### C BCA CMP, #### [facility] ([id number]) [address] [place] [address] ALP [Catalytic activity/Vol] 80 U/L Normal 39-130 [facility] Comment on above: Performed By: #### C BCA, CMP, #### [facility] ([id number]) [address] [place] [address] ALT [Catalytic activity/Vol] 12 U/L Normal 0-40 [facility] Comment on above: Performed By: #### C BCA, CMP, #### [facility] ([id number]) [address] [place] [address] Anion gap [Moles/Vol] 7 mmol/L Normal 5-15 [facility] Comment on above: Performed By: #### C BCA, CMP, #### [facility] ([id number]) [address] [place] [address] AST [Catalytic activity/Vol] 24 U/L Normal 0-41 [facility] Comment on above: Performed By: #### C BCA, CMP, #### [facility] ([id number]) [address] [place] [address] Bilirubin [Mass/Vol] 0.5 mg/dL Normal 0.3-1.2 [facility] Comment on above: Performed By: #### C BCA, CMP, #### [facility] ([id number]) [address] [place] [address] Calcium [Mass/Vol] 8.3 mg/dL Low 8.5-10.5 [facility] Comment on above: Performed By: #### C BCA, CMP, #### [facility] ([id number]) [address] [place] [address] Chloride [Moles/Vol] 103 mmol/L Normal 98-109 [facility] Comment on above: Performed By: #### C BCA, CMP, #### [facility] ([id number]) [address] [place] [address] CO2 [Moles/Vol] 26 mmol/L Normal 22-32 [facility] Comment on above: Performed By: #### [facility], #### [facility] ([id number]) [address] [place] [address] Creatinine [Mass/Vol] 1.24 mg/dL High 0.70-1.20 [facility] Comment on above: Result Comment: METH OD TRACEABLE TO IDMS STANDARD Performed By: #### C ALIYAH ASENCIO, #### [facility] ([id number]) [address] [place] [address] GFR/1.73 sq M.predicted among non-blacks MDRD (S/P/Bld) [Vol rate/Area] 60 mL/min/{1.73_m2} Normal >59 [facility] Comment on above: Result Comment: Reported eGFR is based on the CKD-EPI 2020 equation that does not use a race coefficient. Performed By: #### [facility], #### [facility] ([id number]) [address] [place] [address] Glucose [Mass/Vol] 98 mg/dL Normal 65-99 [facility] Comment on above: Performed By: #### [facility], #### [facility] ([id number]) [address] [place] [address] Potassium [Moles/Vol] 4.2 mmol/L Normal 3.5-5.0 [facility] Comment on above: Performed By: #### [facility], 06963-8 #### [facility] ([id number]) [address] [place] [address] Protein [Mass/Vol] 6.8 g/dL Normal 6.0-8.0 [facility] Comment on above: Performed By: #### C ALIYAH ASENCIO, #### [facility] ([id number]) [address] [place] [address] Sodium [Moles/Vol] 136 mmol/L Normal 134-146 [facility] Comment on above: Performed By: #### C BCA, CMP, 97956-3 #### [facility] ([id number]) [address] [facility] [place] [address] Urea nitrogen [Mass/Vol] 21 mg/dL Normal 5-27 [facility] Comment on above: Performed By: #### C BCA, CMP, 61498-2 #### [facility] ([id number]) [address] [facility] [place] [address] MAGNESIUMon 11-23-2023 Magnesium [Mass/Vol] 2.0 mg/dL Normal 1.8-2.6 [facility] Comment on above: Performed By: #### C BCA, CMP, 99080-1 #### [facility] ([id number]) [address] [facility] [place] [address] CT ABDOMEN AND PELVIS WO CON Ton [...] Albarran MD on 11/22/2023 3:28 PM Normal [facility] AMMONIAon 11-21-2023 Ammonia (P) [Moles/Vol] 24 umol/L Normal 11-[address] [facility] Comment on above: Performed By: #### 6 30-4 #### [facility] ([id number]) [address], [address] [place] [address] BASIC METABOLIC PANLon 11-21 Anion gap [Moles/Vol] 8 mmol/L Normal 5-[address] [facility] Comment on above: Performed By: #### 6 30-4 #### [facility] ([id number]) [address], [address] [place] [address] Calcium [Mass/Vol] 8.4 mg/dL Low 8.5-10.5 [facility] Comment on above: Performed By: #### 6 30-4 #### [facility] ([id number]) [address], [address] [place] [address] Chloride [Moles/Vol] 105 mmol/L Normal 98-[address] [facility] Comment on above: Performed By: #### 6 30-4 #### [facility] ([id number]) [address], [address] [place] [address] CO2 [Moles/Vol] 26 mmol/L Normal 22-[address] [facility] Comment on above: Performed By: #### 6 30-4 #### [facility] ([id number]) [address], [address] [place] [address] Creatinine [Mass/Vol] 1.44 mg/dL High 0.70-1.[address] [facility] Comment on above: Result Comment: METH OD TRACEABLE TO IDMS STANDARD Performed By: #### 6 30-4 #### [facility] ([id number]) [address], [address] [place] [address] GFR/1.73 sq M.predicted among non-blacks MDRD (S/P/Bld) [Vol rate/Area] 50 mL/min/{1.73_m2} Low >[address] [facility] Comment on above: Result Comment: Reported eGFR is based on the CKD-EPI 2020 equation that does not use a race coefficient. Performed By: #### 6 30-4 #### [facility] ([id number]) [address], [address] [place] [address] Glucose [Mass/Vol] 142 mg/dL High 65-99 [facility] Comment on above: Performed By: #### 6 30-4 #### [facility] ([id number]) [address] [address] [place] [address] Potassium [Moles/Vol] 3.9 mmol/L Normal 3.5-5.[address] [facility] Comment on above: Performed By: #### 6 30-4 #### [facility] ([id number]) [address], [address] [place] [address] Sodium [Moles/Vol] 139 mmol/L Normal 134-146 [facility] Comment on above: Performed By: #### 6 30-4 #### [facility] ([id number]) [address], [address] [place] [address] Urea nitrogen [Mass/Vol] 21 mg/dL Normal 5-[address] [facility] Comment on above: Performed By: #### 6 30-4 #### [facility] ([id number]) [address], [address] [place] [address] BLOOD CULTUREon 11-21-2023 Bacteria identified Aer cx Nom (Bld) CULTURE RESULTS STAPHYLOCOCCUS EPIDERMIDIS POSSIBLE COLLECTION CONTAMINATION. STAPHYLOCOCCUS, COAGULASE NEGATIVE NOT S.LUGDUNENSIS POSSIBLE COLLECTION CONTAMINATION. Staphylococcus epidermidis detected by PCR. No resistance genes detected by PCR. SINGLE POSITIVE CULTURE IS OF UNCERTAIN CLINICAL SIGNIFICANCE. SUGGEST CONTINUED MONITORING OF REMAINING BLOOD CULTURES. CONTACT MICROBIOLOGY IF FURTHER INFORMATION IS REQUIRED. Normal [facility] Comment on above: Performed By: #### N UM #### [facility] ([id number]) [address] [place] [address] Bacteria identified Aer cx Nom (Bld) SPECIMEN NOTES SUBOPTIMAL VOLUME OF BLOOD COLLECTED, RESULTS MAY BE AFFECTED. CULTURE RESULTS NO GROWTH 5 DAYS Normal [facility] Comment on above: Performed By: #### N UM #### [facility] ([id number]) [address] [place] [address] CBC AND AUTO DIFFon 11-21-19 24 ABSOLUTE BASOPHIL 0.0 X10E9/L Normal 0.0-0.2 [facility] Comment on above: Performed By: #### C BCA, PINR, 40815-5, BMP, 67408-1, 43939-7, LIVR, 71572-1, 62405-9, THYR, 13697-1 #### [facility] ([id number]) [address] [place] [address] ABSOLUTE NEUTROPHIL 10.3 X10E9/L High 1.5-6.6 [facility] Comment on above: Performed By: #### C BCA, PINR, 96877-0, BMP, 36375-5, 50193-3, LIVR, 37615-6, 93682-8, THYR, 06649-4 #### [facility] ([id number]) [address] [place] [address] Basophils/100 WBC (Bld) 0.3 % Normal [facility] Comment on above: Performed By: #### C BCA, PINR, 65702-2, BMP, 98777-8, 50703-8, LIVR, 20759-3, 40778-1, THYR, 85605-2 #### [facility] ([id number]) [address] [place] [address] Eosinophils (Bld) [#/Vol] 0.3 10*3/uL Normal 0.0-0.[address] [facility] Comment on above: Performed By: #### C BCA, PINR, 94960-6, BMP, 62200-2, 03647-4, LIVR, 88622-6, 57589-0, THYR, 16943-5 #### [facility] ([id number]) [address] [place] [address] Eosinophils/100 WBC (Bld) 2.5 % Normal [facility] Comment on above: Performed By: #### C BCA, PINR, 35242-9, BMP, 37403-1, 75541-6, LIVR, 15438-0, 27238-0, THYR, 41920-7 #### [facility] ([id number]) [address] [place] [address]86 Erythrocyte distribution width (RBC) [Ratio] 17.6 % High 11.5-15.[address] [facility] Comment on above: Performed By: #### C BCA, PINR, 82658-2, BMP, 69419-6, 21456-6, LIVR, 50726-1, 14288-9, THYR, 57712-4 #### [facility] ([id number]) [address] [place] [address] Hematocrit (Bld) [Volume fraction] 40.3 % Normal 39-[address] [facility] Comment on above: Performed By: #### C BCA, PINR, 08133-9, BMP, 31601-8, 96133-9, LIVR, 13379-8, 47581-8, THYR, 73373-3 #### [facility] ([id number]) [address] [place] [address] 98455 Hemoglobin (Bld) [Mass/Vol] 13.1 g/dL Normal 13.0-17.[address] [facility] Comment on above: Performed By: #### C BCA, PINR, 38017-7, BMP, 07132-1, 56931-5, LIVR, 52485-9, 95033-1, THYR, 72073-0 #### [facility] ([id number]) [address] [place] [address]32 Lymphocytes (Bld) [#/Vol] 1.0 10*3/uL Normal 1.0-3.[address] [facility] Comment on above: Performed By: #### C BCA, PINR, 00476-0, BMP, 23742-1, 50840-3, LIVR, 82529-1, 41134-0, THYR, 85174-7 #### [facility] ([id number]) [address] [place] [address] 87178 Lymphocytes/100 WBC (Bld) 7.5 % Normal [facility] Comment on above: Performed By: #### C BCA, PINR, 20023-3, BMP, 87482-2, 13546-4, LIVR, 88515-2, 21739-1, THYR, 22574-3 #### [facility] ([id number]) [address] [place] [address] 55233 MCH (RBC) [Entitic mass] 29.7 pg Normal 27-[address] [facility] Comment on above: Performed By: #### C BCA, PINR, 67863-8, BMP, 69160-9, 95539-1, LIVR, 17154-2, 79470-4, THYR, 29931-2 #### [facility] ([id number]) [address] [place] [address]40 MCHC (RBC) [Mass/Vol] 32.5 g/dL Normal 32-[address] [facility] Comment on above: Performed By: #### C BCA, PINR, 71330-5, BMP, 98692-9, 11915-5, LIVR, 12345-8, 13539-1, THYR, 00410-3 #### [facility] ([id number]) [address] [place] [address] 48852 MCV (RBC) [Entitic vol] 92 fL Normal 80-[address] [facility] Comment on above: Performed By: #### C BCA, PINR, 10893-6, BMP, 80547-2, 72230-5, LIVR, 98269-7, 96580-9, THYR, 22561-7 #### [facility] ([id number]) [address] [place] [address] 76969 Monocytes (Bld) [#/Vol] 1.3 10*3/uL High 0-0.[address] [facility] Comment on above: Performed By: #### C BCA, PINR, 48346-1, BMP, 11673-6, 36310-5, LIVR, 67333-6, 77141-2, THYR, 96395-2 #### [facility] ([id number]) [address] [place] [address] 29292 Monocytes/100 WBC (Bld) 10.2 % Normal [facility] Comment on above: Performed By: #### C BCA, PINR, 62831-4, BMP, 24847-8, 69967-9, LIVR, 21784-1, 33019-4, THYR, 03149-3 #### [facility] ([id number]) [address] [place] [address] 64787 Neutrophils/100 WBC (Bld) 79.5 % Normal [facility] Comment on above: Performed By: #### C BCA, PINR, 63003-9, BMP, 35678-9, 66829-0, LIVR, 15535-0, 38560-4, THYR, 99472-4 #### [facility] ([id number]) [address] [place] [address] 16397 Platelet mean volume (Bld) [Entitic vol] 7.4 fL Normal 7-[address] [facility] Comment on above: Performed By: #### C BCA, PINR, 89410-2, BMP, 47022-3, 40067-6, LIVR, 67767-1, 77528-2, THYR, 77280-5 #### [facility] ([id number]) [address] [place] [address] 68474 Platelets (Bld) [#/Vol] 419 10*3/uL Normal 150-[address] [facility] Comment on above: Performed By: #### C BCA, PINR, 49730-0, BMP, 85480-3, 29024-4, LIVR, 27226-2, 35788-5, THYR, 94228-7 #### [facility] ([id number]) [address] [place] [address] 97215 RBC COUNT 4.40 X10E12/L Normal 4.10-5.[address] [facility] Comment on above: Performed By: #### C BCA, PINR, 77051-9, BMP, 98881-3, 07964-7, LIVR, 23310-5, 76304-0, THYR, 72939-9 #### [facility] ([id number]) [address] [place] [address] 57027 WBC (Bld) [#/Vol] 12.8 10*3/uL High 4.0-11.0 [facility] Comment on above: Performed By: #### C BCA, PINR, 47960-7, BMP, 52746-3, 55979-6, LIVR, 75724-1, 59752-1, THYR, 45416-4 #### [facility] ([id number]) [address] [place] [address] 84966 LIVER PANELon 11-21-2023 Albumin [Mass/Vol] 2.8 g/dL Low 3.2-5.3 [facility] Comment on above: Performed By: #### 6 30-4 #### [facility] ([id number]) [address] [facility], [address] [place] [address] ALP [Catalytic activity/Vol] 99 U/L Normal 39-[address] [facility] Comment on above: Performed By: #### 6 30-4 #### [facility] ([id number]) [address], [address] [place] [address] ALT [Catalytic activity/Vol] 13 U/L Normal 0-[address] [facility] Comment on above: Performed By: #### 6 30-4 #### [facility] ([id number]) [address], [address] [place] [address] AST [Catalytic activity/Vol] 31 U/L Normal 0-[address] [facility] Comment on above: Performed By: #### 6 30-4 #### [facility] ([id number]) [address], [address] [place] [address] Bilirubin [Mass/Vol] 0.3 mg/dL Normal 0.3-1.[address] [facility] Comment on above: Performed By: #### 6 30-4 #### [facility] ([id number]) [address], [address] [place] [address] Bilirubin.direct [Mass/Vol] 0.1 mg/dL Normal 0.0-0.[address] [facility] Comment on above: Performed By: #### 6 30-4 #### [facility] ([id number]) [address], [address] [place] [address] Protein [Mass/Vol] 7.4 g/dL Normal 6.0-8.0 [facility] Comment on above: Performed By: #### 6 30-4 #### [facility] ([id number]) [address] [place] [address] Lactate (P joan) [Moles/Vol]o n 11-21-2023 Lactate [Moles/Vol] 1.6 mmol/L Normal 0.4-2.0 [facility] Comment on above: Performed By: #### N UM #### [facility] ([id number]) [address] [place] [address] LACTATE W/REFLEX 2.5 mmol/L High 0.4-2.0 [facility] Comment on above: Performed By: #### 6 30-4 #### [facility] ([id number]) [address] [place] [address] MAGNESIUMon 11-21-2023 Magnesium [Mass/Vol] 2.1 mg/dL Normal 1.8-2.[address] [facility] Comment on above: Performed By: #### 6 30-4 #### [facility] ([id number]) [address] [facility] [place] [address] Natriuretic peptide B [Mass/ Vol]on 11-21-2023 Natriuretic peptide B (Bld) [Mass/Vol] 136 pg/mL High <100.[address] [facility] Comment on above: Performed By: #### 6 30-4 #### [facility] ([id number]) [address] [place] [address] PROTIME AND INRon 11-21-2023 INR Coag (PPP) [Relative time] 1.3 {INR} High 0.8-1.[address] [facility] Comment on above: Performed By: #### C BCA, PINR, 60566-3, BMP, 14901-4, 72907-8, LIVR, 74808-0, 48503-7, THYR, 14706-3 #### [facility] ([id number]) [address] [place] [address]337 PT Coag (PPP) [Time] 14.8 s High 9.8-13.[address] [facility] Comment on above: Result Comment: NEW REFERENCE RANGE Performed By: #### C BCA, PINR, 20770-1, BMP, 35337-1, 25616-8, LIVR, 94389-3, 96447-0, THYR, 42335-8 #### [facility] ([id number]) [address] [place], [place] [address], [place] [address] SARS/FLU A+B/RSV by NAAT/Mol ecularon 11-21-2023 SARS/FLU [...] operators who are performing tests using either [employer] DX or [employer] systems and is limited to laboratories that [...] repeat. Fact Sheet for Healthcare Providers: https://www.fda.gov/med ia/438531/download Fact Sheet for Patients: https://www.fda.gov/med ia/880647/download [facility] Comment on above: Performed By: #### N UM #### [facility] ([id number]) [address] [facility] [place] [address] THYROID PROFILEon 11-21-2023 Free T4 [Mass/Vol] 1.03 ng/dL Normal 0.61-1.60 [facility] Comment on above: Performed By: #### 6 30-4 #### [facility] ([id number]) [address], [address] [place] [address] TSH 2.80 uIU/mL Normal 0.49-4.[address] [facility] Comment on above: Performed By: #### 6 30-4 #### [facility] ([id number]) [address] [facility], [address] [place] [address] TROPONIN Ion 11-21-2023 Troponin I.cardiac [Mass/Vol] 0.02 ng/mL Normal 0.00-0.[address] [facility] Comment on above: Performed By: #### 6 30-4 #### [facility] ([id number]) [address] [facility] [place] [address] URINE CULTUREon 11-21-2023 Bacteria identified Cx Nom [...] F TRIMETH/SULFAMETHOXAZOL E S <=/19 F Susceptible [facility] Comment on above: Performed By: #### N UM #### [facility] ([id number]) [address] [place] [address], [place] [address] URN MACROSCOPIC NURon 2023 BILIRUBIN MIKE Negative Normal NEG [facility] Comment on above: Performed By: #### 6 30-4 #### [facility] ([id number]) [address] [place] [address] BLOOD/HGB MIKE Large Abnormal NEG [facility] Comment on above: Performed By: #### 6 30-4 #### [facility] ([id number]) [address] [place] [address] GLUCOSE MIKE Negative Normal NEG [facility] Comment on above: Performed By: #### 6 30-4 #### [facility] ([id number]) [address] [place] [address] KETONES MIKE Negative Normal NEG [facility] Comment on above: Performed By: #### 6 30-4 #### [facility] ([id number]) [address] [place] [address] LEUKOCYTE ESTERASE MIKE Large Abnormal NEG [facility] Comment on above: Performed By: #### 6 30-4 #### [facility] ([id number]) [address] [place] [address] NITRITE MIKE Negative Normal NEG [facility] Comment on above: Performed By: #### 6 30-4 #### [facility] ([id number]) [address] [place] [address] PH MIKE 8.5 Normal 5.0-8.[address] [facility] Comment on above: Performed By: #### 6 30-4 #### [facility] ([id number]) [address] [place] [address] PROTEIN MIKE >=[address] Abnormal NEG [facility] Comment on above: Performed By: #### 6 30-4 #### [facility] ([id number]) [address] [place] [address] SPECIFIC GRAVITY MIKE 1.020 Normal 1.003-1.[address] [facility] Comment on above: Performed By: #### 6 30-4 #### [facility] ([id number]) [address] [place] [address] UROBILINOGEN MIKE 0.2 eu/dL Normal <1.1 [facility] Comment on above: Performed By: #### 6 30-4 #### [facility] ([id number]) [address] [place] [address] XR CHEST 1 VWon 11-21-2023 XR CHEST [...] Cheung MD on 11/21/2023 6:10 PM Normal [facility] aPTT Coag (PPP) [Time]on aPTT Coag (Bld) [Time] 43 s High 26-[address] [facility] Comment on above: Result Comment: NEW REFERENCE RANGE Performed By: #### C BCA, PINR, 00421-4, BMP, 23859-0, 59610-8, LIVR, 03702-2, 56017-0, THYR, 23344-7 #### [facility] ([id number]) [address] [place] [address] BASIC METABOLIC PANLon 11-17 Anion gap [Moles/Vol] 11 mmol/L Normal 5-[address] [facility] Comment on above: Performed By: #### C BC, BMP, 84400-5 #### [facility] ([id number]) [address] [place] [address] Calcium [Mass/Vol] 8.1 mg/dL Low 8.5-10.5 [facility] Comment on above: Performed By: #### Lita MASSEY [facility], #### [facility] ([id number]) [address] [place] [address] Chloride [Moles/Vol] 108 mmol/L Normal 98-[address] [facility] Comment on above: Performed By: #### Lita MASSEY [facility], #### [facility] ([id number]) [address] [place] [address] 29568 CO2 [Moles/Vol] 23 mmol/L Normal 22-[address] [facility] Comment on above: Performed By: #### Lita MASSEY [facility], #### [facility] ([id number]) [address] [place] [address]20 Creatinine [Mass/Vol] 1.36 mg/dL High 0.70-1.[address] [facility] Comment on above: Result Comment: METH OD TRACEABLE TO IDMS STANDARD Performed By: #### C BRYSON [facility], #### [facility] ([id number]) [address] [place] [address]3214 GFR/1.73 sq M.predicted among non-blacks MDRD (S/P/Bld) [Vol rate/Area] 54 mL/min/{1.73_m2} Low >[address] [facility] Comment on above: Result Comment: Reported eGFR is based on the CKD-EPI 2020 equation that does not use a race coefficient. Performed By: #### C ASHELY MASSEY, #### [facility] ([id number]) [address] [place] [address]38 Glucose [Mass/Vol] 84 mg/dL Normal 65-99 [facility] Comment on above: Performed By: #### ASHELY ALARCON, #### [facility] ([id number]) [address] [place] [address] 26789 Potassium [Moles/Vol] 4.1 mmol/L Normal 3.5-5.[address] [facility] Comment on above: Performed By: #### C ASHELY MASSEY, #### [facility] ([id number]) [address] [place] [address]4037 Sodium [Moles/Vol] 142 mmol/L Normal 134-146 [facility] Comment on above: Performed By: #### Lita MASSEY [facility], #### [facility] ([id number]) [address] [place] [address]696 Urea nitrogen [Mass/Vol] 33 mg/dL High 5-[address] [facility] Comment on above: Performed By: #### Lita MASSEY [facility], #### [facility] ([id number]) [address] [place] [address] 09247 COMPLETE BLOOD COUNTon 11-17 Erythrocyte distribution width (RBC) [Ratio] 17.3 % High 11.5-15.[address] [facility] Comment on above: Performed By: #### C ASHELY MASSEY, #### [facility] ([id number]) [address] [place] [address]65[address] Hematocrit (Bld) [Volume fraction] 36.4 % Low 39-[address] [facility] Comment on above: Performed By: #### C ASHELY MASSEY, #### [facility] ([id number]) [address] [place] [address] Hemoglobin (Bld) [Mass/Vol] 11.8 g/dL Low 13.0-17.[address] [facility] Comment on above: Performed By: #### ASHELY ALARCON, #### [facility] ([id number]) [address] [place] [address] 09886 MCH (RBC) [Entitic mass] 29.4 pg Normal 27-[address] [facility] Comment on above: Performed By: #### Lita MASSEY [facility], #### [facility] ([id number]) [address] [place] [address] 47671 MCHC (RBC) [Mass/Vol] 32.3 g/dL Normal 32-[address] [facility] Comment on above: Performed By: #### Lita MASSEY [facility], #### [facility] ([id number]) [address] [place] [address] 51845 MCV (RBC) [Entitic vol] 91 fL Normal 80-[address] [facility] Comment on above: Performed By: #### Lita AMSSEY [facility], #### [facility] ([id number]) [address] [place] [address] 33249 Platelet mean volume (Bld) [Entitic vol] 8.6 fL Normal 7-[address] [facility] Comment on above: Performed By: #### Lita MASSEY [facility], #### [facility] ([id number]) [address] [place] [address] 21108 Platelets (Bld) [#/Vol] 287 10*3/uL Normal 150-[address] [facility] Comment on above: Performed By: #### Lita MASSEY [facility], #### [facility] ([id number]) [address] [place] [address] 70386 RBC COUNT 4.00 X10E12/L Low 4.10-5.[address] [facility] Comment on above: Performed By: #### ASHELY ALARCON, #### [facility] ([id number]) [address] [place] [address] 80713 WBC (Bld) [#/Vol] 9.1 10*3/uL Normal 4.0-11.0 [facility] Comment on above: Performed By: #### C ASHELY MASSEY, 42794-1 #### [facility] ([id number]) [address] [place] [address] 97215 MAGNESIUMon 11-17-2023 Magnesium [Mass/Vol] 2.0 mg/dL Normal 1.8-2.[address] [facility] Comment on above: Performed By: #### C ASHELY MASSEY, 91956-2 #### [facility] ([id number]) [address] [place] [address] 42394 URINE CULTUREon 10-30-2023 Bacteria identified Cx Nom [...] F TRIMETH/SULFAMETHOXAZOL E S <=1/19 F Susceptible [facility] Comment on above: Performed By: #### 6 30-4 #### [facility] ([id number]) [address], [address] [place] [address] URN MACROSCOPIC NURon 2023 BILIRUBIN MIKE Negative Normal NEG [facility] Comment on above: Performed By: #### N UM #### [facility] ([id number]) [address] [place] [address] 23840 BLOOD/HGB MIKE Large Abnormal NEG [facility] Comment on above: Performed By: #### N UM #### [facility] ([id number]) [address] [place] [address] GLUCOSE MIKE Negative Normal NEG [facility] Comment on above: Performed By: #### N UM #### [facility] ([id number]) [address] [place] [address] [place] [address] KETONES MIKE Negative Normal NEG [facility] Comment on above: Performed By: #### N UM #### [facility] ([id number]) [address] [place] [address] 24123 LEUKOCYTE ESTERASE MIKE Large Abnormal NEG [facility] Comment on above: Performed By: #### N UM #### [facility] ([id number]) [address] [place] [address] NITRITE MIKE Negative Normal NEG [facility] Comment on above: Performed By: #### N UM #### [facility] ([id number]) [address] [place] [address] 89727 PH MIKE 6.0 Normal 5.0-8.[address] [facility] Comment on above: Performed By: #### N UM #### [facility] ([id number]) [address] [place] [address] 38245 PROTEIN MIKE 30 mg/dL Abnormal NEG [facility] Comment on above: Performed By: #### N UM #### [facility] ([id number]) [address] [place] [address]2224 SPECIFIC GRAVITY MIKE 1.015 Normal 1.003-1.[address] [facility] Comment on above: Performed By: #### N UM #### [facility] ([id number]) [address] [place] [address] [place] [address] UROBILINOGEN MIKE 0.2 eu/dL Normal <1.1 [facility] Comment on above: Performed By: #### N UM #### [facility] ([id number]) [address] [place] [address]84 URINALYSISon 10-12-2023 Bilirubin Ql (U) Negative Normal NEG [facility] Comment on above: Performed By: #### U A #### [facility] ([id number]) [address] [place] [address] [place] [address] BLOOD/HGB Trace Abnormal NEG [facility] Comment on above: Performed By: #### U A #### [facility] ([id number]) [address] [place] [address] [place] [address] Color (U) YELLOW Normal YELLOW [facility] Comment on above: Performed By: #### U A #### [facility] ([id number]) [address] [place] [address] 47594 Glucose Ql (U) Negative Normal NEG [facility] Comment on above: Performed By: #### U A #### [facility] ([id number]) [address] [place] [address] [place] [address] Ketones Ql (U) Negative Normal NEG [facility] Comment on above: Performed By: #### U A #### [facility] ([id number]) [address] [place] [address]104 Leukocyte esterase Test strip Ql (U) SMALL Abnormal NEG [facility] Comment on above: Performed By: #### U A #### [facility] ([id number]) [address] [place] [address] [place] [address] Nitrite Ql (U) Negative Normal NEG [facility] Comment on above: Performed By: #### U A #### [facility] ([id number]) [address] [place] [address] [place] [address] pH (U) 6.0 [pH] Normal 5.0-8.[address] [facility] Comment on above: Performed By: #### U A #### [facility] ([id number]) [address] [place] [address] Protein Ql (U) Negative Normal NEG [facility] Comment on above: Performed By: #### U A #### [facility] ([id number]) [address] [place] [address] 60088 R.B.CELLS 2 /hpf Normal 0-[address] [facility] Comment on above: Performed By: #### U A #### [facility] ([id number]) [address] [place] [address] 35518 Specific gravity (U) [Rel density] 1.020 Normal 1.003-1.[address] [facility] Comment on above: Performed By: #### U A #### [facility] ([id number]) [address] [place] [address] 58045 SQUAMOUS EPITHELIUM 3 /hpf Normal 0-5 [facility] Comment on above: Performed By: #### U A #### [facility] ([id number]) [address] [place] [address] 16317 TURBIDITY CLEAR Normal CLEAR [facility] Comment on above: Performed By: #### U A #### [facility] ([id number]) [address] [place] [address] 77768 Urobilinogen Qn (U) 0.2 {Ryland'U}/dL Normal <1.[address] [facility] Comment on above: Performed By: #### U A #### [facility] ([id number]) [address] [place] [address] 97459 W.B.CELLS 15 /hpf High 0-[address] [facility] Comment on above: Performed By: #### U A #### [facility] ([id number]) [address] [place] [address] 90066 URINE CULTUREon 10-12-2023 Bacteria identified Cx Nom [...] F TRIMETH/SULFAMETHOXAZOL E S <=/19 F Susceptible [facility] Comment on above: Performed By: #### 6 30-4 #### [facility] ([id number]) [address] [place] [address], [address] [place] [address] Rad - Other Radiology Report on 12-29-2022 Rad - Other Radiology Report [id number]#1.00 [facility] 11-10-2022 Outside Records [id number]#1.00O [facility] 10-22-2022 Outside Records [id number]#1.00O [facility] 10-12-2022 Outside Records [id number]#1.00 [facility] 08-24-2022 Outside Records [id number]#1.00 [facility] 08-03-2022 Outside Records [id number]#1.00O [facility] Outside Records [id number]#1.00O [facility] Outside Records [id number]#1.00O [facility] 08-02-2022 Outside Records [id number]#1.00O [facility] 04-14-2022 Outside Records [id number]#1.00 [facility] 04-05-2022 Outside Records [id number]#1.00O [facility] 03-19-2022 Outside Records [id number]#1.00O [facility] 03-09-2022 Outside Records [id number]#1.00 [facility] Outside Records [id number]#1.00 [facility] Outside Records [id number]#1.00 [facility] 03-08-2022 Outside Records [id number]#1.00O [facility] 03-05-2022 Outside Records [id number]#1.00O [facility] COVID-19 PCRon 09-12-2020 SARS-CoV-2, CARIE Not Detected Normal Not Detected [facility] Comment on above: Result Comment: This nucleic acid amplification test was developed and its performance characteristics determined by [employer]. Nucleic acid amplification tests include PCR and [...] assay. Performed By: #### C VDPCR #### [facility] [address] [place] [address] Kenji Blanco COVID-19 PCRon 09-05-2020 SARS-CoV-2, CARIE Not Detected Normal Not Detected [facility] Comment on above: Result Comment: This nucleic acid amplification test was developed and its performance characteristics determined by [employer]. Nucleic acid amplification tests include PCR and [...] assay. Performed By: #### C VDPCR #### [facility] [address] [place] [address] Kenji Blanco Vital Signs Date Time Vital Sign Value Performing Clinician Faci lity 12-28-2023 09:57-0500 Body height 165.1 cm Katherine Mohr MD Work Phone: [facility] 10-13-2023 09:57-0500 Body mass index (BMI) [Ratio] 37.44 kg/m2 Katherine Mohr MD Work Phone: [facility] 10-13-2023 09:57-0500 Body weight 102.06 kg Katherine Mohr MD Work Phone: [facility] 10-13-2023 09:57-0500 Diastolic blood pressure 60 mm[Hg] Katherine Mohr MD Work Phone: [facility] 10-13-2023 09:57-0500 Heart rate 96 /min Katherine Mohr MD Work Phone: [facility] 10-13-2023 09:57-0500 SaO2% (BldA) [Mass fraction] 91 % Katherine Mohr MD Work Phone: [facility] 10-13-2023 09:57-0500 Systolic blood pressure 90 mm[Hg] Katherine Mohr MD Work Phone: [facility] Encounters Encounter Date Encounter Type Care Provider Facility Start: 07-25-2024 End: 07-25-2024 ambulatory TERRIE Brar [facility] Start: 07-21-2024 End: 07-21-2024 Emergency department patient visit LOBO Boles [facility] Start: 07-19-2024 End: 07-19-2024 ambulatory DARRYN Carpio [facility] Start: 07-17-2024 End: 07-17-2024 Emergency department patient visit DEEP WATER Elvi [facility] Start: 07-17-2024 End: 07-17-2024 Emergency department patient visit DARRYN Carpio DIGNA [facility] Start: 07-10-2024 End: 07-10-2024 ambulatory STORM SULLIVAN [facility] Start: 07-07-2024 End: 07-07-2024 Emergency department patient visit LOBO Boles [facility] Start: 07-04-2024 End: 07-06-2024 ambulatory LOBO Boles [facility] Start: 07-02-2024 End: 07-02-2024 Emergency department patient visit LOBO Boles [facility] Start: 06-29-2024 End: 06-29-2024 [facility] Start: 01-27-2024 End: 01-27-[address] [facility] Start: 12-26-2023 End: 12-26-2023 ambulatory [facility] Start: 12-02-2023 End: 12-02-2023 ambulatory [facility] Start: 12-01-2023 End: 12-01-2023 ambulatory [facility] Start: 11-28-2023 End: 11-28-2023 ambulatory [facility] Start: 11-23-2023 End: 11-23-2023 ambulatory [facility] Start: 11-22-2023 End: 11-24-2023 Evaluation and management of inpatient [facility] Start: 11-22-2023 End: 11-23-2023 Evaluation and management of inpatient YOBANY Deluca [facility] Start: 11-21-2023 End: 11-23-2023 Emergency department patient visit DARRYN Balaji DIGNA [facility] Start: 11-21-2023 End: 11-23-2023 Emergency department patient visit DARRYN Carpio DIGNA [facility] Start: 11-17-2023 End: 11-17-2023 ambulatory [facility] Start: 11-02-2023 End: 11-02-2023 ambulatory ANTONIO FOX [facility] Start: 10-30-2023 End: 10-30-2023 Emergency department patient visit LOBO MACHUCA [facility] Start: 10-13-2023 End: 10-13-2023 Office outpatient visit 15 minutes Katherine Mohr MD Work Phone: [facility] Comment on above: Paroxysmal atrial fi brillation (CMS-HCC) (Primary Dx); Cardiomyopathy; Chronic systolic CHF (congestive heart failure) (CMS-HCC); Aneurysm of ascending aorta without rupture (CMS-HCC); Bradycardia Start: 10-13-2023 End: 10-13-2023 ambulatory [facility] Start: 10-12-2023 End: 10-12-2023 ambulatory CHIKI CLIFFORDUGER [facility] Start: 09-09-2020 End: 09-10-2020 Patient encounter procedure [...] Td Vaccines (2 - Td or Tdap) [facility] Start: 10-13-2024 Adult BMI Screening Adult BMI Screening [facility] Start: 10-13-2024 Tobacco Screening Tobacco Screening [facility] Start: 08-12-2024 Depression Screening Depression Screening [facility] Start: 06-17-2023 COVID-19 Vaccine ( season) COVID-19 Vaccine () [facility] Start: 06-17-2023 Influenza vaccination Influenza Vaccine [facility] Start: 2012 Fall Risk Screening Fall Risk Screening [facility] Start: 1997 Administration of varicella zoster vaccine Zoster (Shingles) Vaccine (1 of 2) [facility] Start: 09-02-1965 Adult BMI Follow Up Plan Adult BMI Follow Up Plan [facility] Start: 1945 Medicare Annual Wellness Visit Medicare Annual Wellness Visit [facility] Immunizations Immunization Date Immunization Notes Care Provider Fa cility 07-24-2021 Influenza, High-dose , Quadrivalent Katherine Mohr MD Work Phone: [facility] 07-24-2021 influenza virus vacc ine, unspecified formulation Katherine Mohr MD Work Phone: [facility] 09-01-2020 influenza, high dose seasonal, preservative-free Katherine Mohr MD Work Phone: [facility] 07-27-2020 tetanus toxoid, redu reyes diphtheria toxoid, and acellular pertussis vaccine, adsorbed Katherine Mohr MD Work Phone: [facility] 12-15-2017 influenza, injectabl e, quadrivalent, preservative free Katherine Mohr MD Work Phone: [facility] 10-21-2015 influenza virus vacc ine, unspecified formulation Katherine Mohr MD Work Phone: [facility] 10-21-2015 pneumococcal polysaccharide vaccine, 23 valent Katherine Mohr MD Work Phone: [facility] 09-06-2014 influenza virus vacc ine, unspecified formulation Katherine Mohr MD Work Phone: [facility] 10-25-2011 influenza virus vacc ine, unspecified formulation Katherine Mohr MD Work Phone: [facility] 12-04-2009 novel influenza-H1N1 -09, preservative-free, injectable Katherine Mohr MD Work Phone: [facility] Payers Date Payer Category Payer Medicaid MEDICAID [facility] M EDICAID [id number] 2021-[facility] [phone] [address] [place] [address] [id number] 1990 Medicare MEDICARE MEDICAR E PART A & B [id number] 1990-Present [phone] [address] [place] [address] [id number] 1959 Medicaid [id number] 1959 Medicare [id number] 1945 Unknown [id number] 2.16.840.1.140081.3.579.2.593 1947 Unknown [id number] 2.16.840.1.869241.3.579.2.593 1947 Unknown [id number] 2.16.840.1.616715.3.579.2.128 1947 Unknown [id number] 2.16.840.1.156625.3.579.2.1285 1947 Unknown [id number] 2.16.840.1.909075.3.579.2.128 1947 Unknown [id number] 2.16.840.1.573713.3.579.2.128 1947 Unknown [id number] 2.16.840.1.804079.3.579.2.128 1947 Unknown [id number] 2.16.840.1.132363.3.579.2.128 1947 Unknown [id number] 2.16.840.1.806010.3.579.2.1285 1947 Unknown [id number] 2.16.840.1.826673.3.579.2.1285 1947 Unknown [id number] 2.16.840.1.033808.3.579.2.128 1947 Unknown [id number] 2.16.840.1.521596.3.579.2.1285 1947 Unknown [id number] 2.16.840.1.742624.3.579.2.1285 1947 Unknown [id number] 2.16.840.1.711945.3.579.2.1285 1947 Unknown [id number] 2.16.840.1.137044.3.579.2.1285 1947 Unknown [id number] 2.16.840.1.138031.3.579.2.1285 1947 Unknown [id number] 2.840.1.946887.3.579.2.1285 1947 Unknown [id number] 2.840.1.587535.3.579.2.1285 1947 Unknown [id number] 2.840.1.709862.3.579.2.1285 1947 Unknown [id number] 2.840.1.309151.3.579.2.1285 1947 Unknown [id number] 2.840.1.322730.3.579.2.1285 1947 Unknown [id number] 2.840.1.964059.3.579.2.1285 1947 Unknown [id number] 2.840.1.751016.3.579.2.1285 1947 Unknown [id number] 2.840.1.528072.3.579.2.1285 1947 Unknown [id number] 2.16840.1.574904.3.579.2.1285 1947 Unknown [id number] 2.16840.1.986084.3.579.2.1285 1947 Unknown [id number] 2.16840.1.642952.3.579.2.12851947 Unknown [id number] 2.16.840.1.443293.3.579.2.1286 Social History Date Type Detail Facility Start: 09-15-2022 [facility] History of tobacco use Current smoker [facility] Start: 09-15-2022 Tobacco use and exposure Smoke less tobacco non-user [facility] Start: 10-13-2023 Alcohol intake Current drinke r of alcohol (finding) [facility] Start: 10-12-2022 End: 08-11-2023 History of Social function [facility] Start: 10-12-2022 End: 08-11-2023 Social connection and isolation panel [facility] Do you belong to any clubs or organizations such as evangelical groups, unions, fraternal or athletic groups, or school groups? No [facility] Are you now , , , , never or living with a partner? [facility] How often to you hav e a drink containing alcohol? 2-4 times a month [facility] How many standard dr inks containing alcohol do you have on a typical day? 1 or 2 [facility] How often do you hav e 6 or more drinks on 1 occasion? Never [facility] How hard is it for y ou to pay for the very basics like food, housing, medical care, and heating Not hard at all [facility] Do you feel stress - tense, restless, nervous, or anxious, or unable to sleep at night because your mind is troubled all the time - these days [OSQ] Not at all [facility] Start: 09-15-2022 Tobacco Comment quit 15 years ago [address] [facility] Start: 12-30-2021 Alcohol Comment WINE [employer]OLER -H APPY HOUR [facility] Start: 1945 Sex Assigned At Not on file P [facility] Medical Equipment Procedure Code Equipment Code Equipment Origin al Text Equipment Identifier Dates Plate Bn 54mm St d 6 Hle/Hd 3 Hle/Shft 2 Clmn Va Lcp Cmbn Rds Rpl 111.630 - [id number] - [id number] Start: 09-05-2021 Screw Bn 24mm 2. [address] Slf Rtn Strdr Lp Hd Aguila Ss T8 Ns - [id number] - [id number] Start: 09-05-2021 Goals Date Patient Goal Desired Activity /State Personal health goal Comment on above: Formatting of this n ote might be different from the original. Evaluation of progress towards goal: Patient's guardian plans for patient to return to [facility] History of Present illness Narrative 10-13-2023 Katherine [...] non-ST elevation myocardial infarction (NSTEMI) Atrial flutter ([facility]) Chronic systolic CHF (congestive heart failure) ([facility] Acute pulmonary embolism ([facility] Urinary retention Ascending aortic aneurysm ([facility]) Colonic obstruction ([facility]) Acute respiratory failure with hypoxia ([facility]) Gastrointestinal hemorrhage associated with peptic ulcer Oropharyngeal dysphagia Volume overload Surgical wound, non healing Obesity (BMI 30-39.9) Pneumonia Paroxysmal atrial fibrillation (CMS-HCC) Insomnia Schizophrenia (CMS-HCC) Weakness Hypomagnesemia Dysphagia Elevated liver enzymes Cardiomyopathy (CMS-HCC) Skin excoriation Acute on chronic respiratory failure with hypoxia ([facility]) COPD exacerbation ([facility]) Unresponsiveness No Known Allergies Current Outpatient [...] History of sigmoidectomy with ostomy PT AT [facility] AND INSTRUCTED TO PLEASE MAKE SURE PT [...] seen by my partner while hospitalized at [facility] August for management of paroxysmal atrial fibrillation/bradycardia [...] Acute cystitis with hematuria Acute kidney failure ([facility]) Acute respiratory failure, unsp w hypoxia or hypercapnia ([facility]) Anemia Anxiety Asthma Atrial fibrillation ([facility]) 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 ([facility]) BPH (benign prostatic hyperplasia) Cardiomyopathy Cellulitis Closed fracture of lower end of right radius with routine healing Cognitive communication deficit Colonic obstruction ([facility]) 02/07/2021 Constipation Contracture of muscle COPD (chronic obstructive pulmonary disease) ([facility]) COVID-19 COVID-19 02/07/2021 Dehydration Dental disease Displaced fracture of right ulna styloid process, subsequent encounter for closed fracture with routine healing Dysphagia Esophagitis GERD (gastroesophageal reflux disease) Gross hematuria Herpesviral infection Hypernatremia Hyperosmolality Hypertension Hypokalemia Impetigo Infrapatellar bursitis Intellectual disability Intestinal obstruction ([facility]) Lobular pneumonia Lymph edema Magnesium deficiency Major depressive disorder, recurrent ([facility]) Muscle weakness (generalized) Neuromuscular dysfunction of bladder OA (osteoarthritis) Obesity OCD (obsessive compulsive disorder) Lourdes syndrome Oropharyngeal dysphagia Other abnormalities of gait and mobility Other fracture of upper and lower end of left fibula, sequela Other specified abnormalities of plasma proteins Peptic ulcer Recurrent hematuria Retention of urine Retrograde ejaculation Schizophrenia ([facility]) Sleep apnea Urinary frequency UTI (urinary tract infection) Venous ulcer of leg ([facility]) No data recorded No data recorded No data recorded Past Surgical History: Procedure Laterality Date CATARACT EXTRACTION CLOSED REDUCTION PERCUTANEOUS PINNING Left 08/20/2020 Performed by Ethan Leon MD at [facility] COLON SURGERY COLONOSCOPY COLONOSCOPY Left 02/09/2021 Performed by Yolanda Garcia MD at [facility] COLONOSCOPY with placement of decompression tube Left 02/17/2021 Performed by Lizette Seo MD at [facility] CYSTOSCOPY N/A 07/17/2019 Performed by Tim Patterson MD at [facility] EGD/PEG TUBE PLACEMENT N/A 09/29/2020 Performed by Mark Irene MD at [facility] FINGER SURGERY Right INCISION AND DRAINAGE Left 08/20/2020 Performed by Ethan Leon MD at [facility] LAPAROTOMY EXPLORATORY / SIGMOID COLECTOMY / END COLOSTOMY N/A 02/18/2021 Performed by Ten Multani MD at [facility] OPEN REDUCTION INTERNAL FIXATION RADIUS DISTAL Right 09/05/2021 Performed by William Leon DO at [facility] REMOVAL HARDWARE FOOT/TOE Left 02/02/2021 Performed by Ethan Leon MD at [facility] No family history on file. Social History [...] min Stress: No Stress Concern Present (10/12/2022) [employer] - Occupational Stress Questionnaire Feeling of Stress : Not at all Social Connections: Moderately Integrated (10/12/2022) Social Connection and Isolation Panel [NHANES] Frequency of Communication with Friends and Family: More than three times a week Frequency of Social Gatherings with Friends and Family: More than three times a week Attends Sabianist Services: More than 4 times per year [...] Referring Physician: Lobo Machuca DO [address] [place] [address] documented in this encounter [facility] Evaluation note Note Date & Type Note Facility Evaluation note Diagnosis Paroxysmal atrial fibrillation (CMS-HCC)- Primary Atrial fibrillation Cardiomyopathy (CMS-HCC) Chronic systolic CHF (congestive heart failure) (CMS-HCC) Aneurysm of ascending aorta without rupture (CMS-HCC) Bradycardia Other specified cardiac dysrhythmias documented in this encounter [facility] Instructions Note Date & Type Note Facility Instructions Not on filedocumented in this en counter [facility] Summary Purpose Family History No Family History Records FoundNo Family History Records FoundNo Family History Records FoundNo Family History Records FoundNo Family History Records Found Advance Directives No Advanced Directives Records FoundDocuments on File Type Date Recorded Patient Alteration Manager Expl anation DNR Physician Order 08/25/2023 2:34 PM Advance Directive 08/11/2023 6:04 PM Adva nced Directive 08-11-23 DNR Physician Order 03/18/2022 11:05 AM DNR Physician Order 09/30/2021 8:34 AM DNR Physician Order 02/16/2021 11:13 AM DNR Physician Order 10/15/2020 9:46 AM Latest Code Status on File Code Status Date Activated Date Inactivated Comments DNR Comfort Care Arrest (DNR-CCA) [place] 08/16/2023 2:45 PM 08/24/2023 1:03 PM Code Status History Code Status Date Activated Date Inactivated Comments Full Code 08/12/2023 1:02 PM 08/16/2023 2:45 PM DNR Comfort Care Arrest (DNR -CCA) [place] 10/11/2022 9:52 AM 10/19/2022 1:02 PM DNR Comfort Care Arrest (DNR -CCA) [place] 08/02/2022 11:43 AM 08/07/2022 6:45 PM DNR Comfort Care Arrest (DNR -CCA) [place] 08/01/2022 11:08 PM 08/02/2022 10:10 AM Additional Source Comments (unrecognized sect ion and content) No Status Records FoundNo Status Records FoundNo Status Records FoundNo Status Records FoundNo Status Records Found INFORMATION SOURCE (unrecogn ized section and content) DATE CREATED AUTHOR 09/19/2020 [facility] DATE CREATED AUTHOR AUTHOR'S ORGANIZ ATION 12/30/2022 [facility] DATE CREATED AUTHOR AUTHOR'S ORGANIZ ATION 11/30/2023 [facility] DATE CREATED AUTHOR AUTHOR'S ORGANIZ ATION 07/23/2024 [facility] DATE CREATED AUTHOR AUTHOR'S ORGANIZ ATION 07/27/2024 [facility] Reason for Visit (unrecogniz ed section [...] History of sigmoidectomy with ostomy PT AT [facility] AND INSTRUCTED TO PLEASE MAKE SURE PT IS ACCOMPANIED W/STAFF AND SUPPLIES ALONG W/CHANGE OF CLOTHES IF PATIENTS OSTOMY BAG BREAKS Care Teams (unrecognized sec tion and content) [employer] Relationship Specialty Start Date End Date Lobo Machuca DO [address] [place] [address] PCP - General Family Medicine 01/19/23 FOR [...] BE BASED ON THE PRIMARY CLINICAL RECORDS. [facility]. provides no warranty or guarantee of the accuracy or completeness of information in this document.
[2024-09-07 09:19] LABS: Basophils Absolute Auto 0.1 10^3/uL (0.0-0.1); Basophils Percent Auto 0.7 % (0.2-2.0); Eosinophils Absolute Auto 0.4 10^3/uL (0.0-0.7); Eosinophils Percent Auto 4.1 % (0.9-7.0); Hematocrit 41.7 % (42.0-54.0); Hemoglobin 12.3 g/dL (14.0-18.0); Immature Granulocytes Abs Auto 0.11 10^3/uL (0.00-0.03); Immature Granulocytes Pct Auto 1.1 % (0.0-0.5); Lymphocytes Absolute Auto 1.4 10^3/uL (1.2-3.8); Lymphocytes Percent Auto 13.4 % (20.5-60.0); Mean Corpuscular HGB Conc 29.5 g/dL (29.9-35.2); Mean Corpuscular Hemoglobin 29.1 pg (25.9-34.0); Mean Corpuscular Volume 98.8 fL (80.0-94.0); Mean Platelet Volume 10.6 fL (9.5-13.5); Monocytes Absolute Auto 0.8 10^3/uL (0.3-0.8); Monocytes Percent Auto 7.6 % (1.7-12.0); Neutrophils Absolute Auto 7.4 10^3/uL (1.4-6.5); Neutrophils Percent Auto 73.1 % (43.0-75.0); Platelet Count 272 10^3/uL (150-450); Red Blood Count 4.22 10^6/uL (4.70-6.10); Red Cell Distribution Width 15.2 % (11.0-15.0); White Blood Count 10.2 10^3/uL (4.0-11.0)
[2024-09-07 09:26] LABS: Anion Gap 13.8; BUN Creatinine Ratio 26.7; Calcium 9.5 mg/dL (8.5-10.1); Carbon Dioxide 26.6 mmol/L (21.0-32.0); Chloride 108 mmol/L (98-107); Estimated GFR (African America >60 (>=60 mL/min/1.73m^2); Estimated GFR (Non-African Ame >60 (>=60 mL/min/1.73m^2); Glucose 83 mg/dL (74-106); Magnesium 1.9 mg/dL (1.8-2.4); Potassium 4.4 mmol/L (3.5-5.1); Sodium 144 mmol/L (136-145)
== END 2024-09-07 01:18 | disposition home or self-care (01) ==
LOC: LAB 01:17
PROVIDERS: PCP Family Medicine; Visit Provider Nurse Practitioner Adult Health
DX: E61.2 Magnesium deficiency (principal); D64.9 Anemia, unspecified; J44.9 Chronic obstructive pulmonary disease, unspecified
CPT/HCPCS: 36415; 80048; 83735; 85025